=== PATIENT | female | born 1985 | race Caucasian/White ===

== ENCOUNTER → 2017-09-01 | Outpatient (CLI) | payer OTHER ==
[2017-09-01 09:36] LABS: Bilirubin, Delta 0.3 mg/dL (0.0-0.2); Total Bilirubin 0.3 mg/dL (0.2-1.3); Total Protein 6.9 g/dL (6.3-8.2)
[2017-09-01 09:42] LABS: Valproic Acid (Depakene) 74.7 ug/mL
[2017-09-01 09:52] LABS: T4, Free (Free Thyroxine) 0.81 ng/dL (0.78-2.19)
[2017-09-01 15:54] LABS: Hemoglobin A1C 5.7 % (4.0-6.0)
[2017-09-01 17:41] LABS: Urine Alcohol Negative (Negative); Urine Barbiturate Negative (Negative); Urine Cocaine Negative (Negative); Urine Methadone Negative (Negative); Urine Opiates Negative (Negative); Urine Phencyclidine Negative (Negative)
== END | disposition home or self-care (01) ==
LOC: LABWHC1 08:33
PROVIDERS: ATTEND Psychiatry & Neurology Psychiatry
DX: Z51.81 Encounter for therapeutic drug level monitoring (principal); Z79.899 Other long term (current) drug therapy
CPT/HCPCS: 36415; 80061; 80076; 80164; 80306; 82947; 83036; 84439; 84443

== ENCOUNTER 2018-09-24 07:30 | Emergency (ER) | payer OTHER ==
[2018-09-24 07:39] VITALS: BP 124/82; PULSE 85; RESP 18; TEMP 98.2
[2018-09-24] MEDS ORDERED: BUPIVACAINE (PF) 0.5% 30 ML VIAL SQ STA (07:46)
[2018-09-24] MEDS ORDERED: BUPIVACAINE (PF) 0.75% 10 ML VIAL SQ STA (07:50)
[2018-09-24] MEDS ORDERED: ACET/COD 300 MG/30 MG STARTER PACK 6 TAB BTL PO STA (07:51)
[2018-09-24] MEDS ORDERED: IBUPROFEN 600 MG STARTER PACK 4 TAB BTL PO STA (07:51)
--- NOTE | 2018-09-24 07:53 | ED ---
ENT HPI - General Chief complaint: Dental/Oral Stated complaint: Dental pain/jaw swelling Time Seen by Provider: 09/24/18 07:39 Source: patient, RN notes reviewed, old records reviewed Mode of arrival: ambulatory Limitations: no limitations - History of Present Illness Initial comments: Patient is a 32-year-old female presents today with complaints of left lower dental pain and swelling. Patient states that she has an abscess over the front molars. Patient states she does not have a dentist at this time. Patient states that she has had no trismus. She denies any foul taste. Patient states that she has swelling over her gum. Patienthas pain and fractured tooth #20. Patient denies any recent fever, chills, shortness of breath, chest pain, back pain, abdominal pain, nausea vomiting, numbness or tingling, dysuria or hematuria, constipation or diarrhea, headaches or visual changes, or any other current symptoms - Related Data Previous Rx's Medication Instructions Recorded Clindamycin [Cleocin] 450 mg PO TID 7 Days capsule 09/24/18 Ibuprofen 600 mg PO TID #20 tablet 09/24/18 Allergies Allergy/AdvReac Type Severity Reaction Status Date / Time No Known Allergies Allergy Verified 09/24/18 07:36 Review of Systems ROS Statement: Those systems with pertinent positive or pertinent negative responses have been documented in the HPI. ROS Other: All systems not noted in ROS Statement are negative. Past Medical History Past Medical History: No Reported History Past Surgical History: Section Past Psychological History: Anxiety, Bipolar, Depression Smoking Status: Current every day smoker Past Alcohol Use History: None Reported Past Drug Use History: None Reported General Exam - General Exam Comments Initial Comments: pleasant 32-year-old female. Alert and oriented 3. No distress. Limitations: no limitations General appearance: alert, in no apparent distress Head exam: Present: atraumatic, normocephalic, normal inspection Eye exam: Present: normal appearance, PERRL, EOMI. Absent: scleral icterus, conjunctival injection, periorbital swelling ENT exam: Present: normal exam, mucous membranes moist. Absent: normal oropharynx (Patient is poor dentition. Fracture tooth #20. Evidence of abscess over the gums around tooth #20.) Neck exam: Present: normal inspection. Absent: tenderness, meningismus, lymphadenopathy Respiratory exam: Present: normal lung sounds bilaterally. Absent: respiratory distress, wheezes, rales, rhonchi, stridor Cardiovascular Exam: Present: regular rate, normal rhythm, normal heart sounds. Absent: systolic murmur, diastolic murmur, rubs, gallop, clicks Neurological exam: Present: alert, oriented X3, CN II-XII intact Psychiatric exam: Present: normal affect, normal mood Skin exam: Present: warm, dry, intact, normal color. Absent: rash Course Vital Signs 09/24/18 07:36 Temperature 98.2 F Pulse Rate 85 Respiratory 18 Rate Blood Pressure 124/82 O2 Sat by Pulse 96 Oximetry Procedures - Nerve Block Local Anesthetic Used: Marcaine 0.5% Amount of anesthesia used: 5 Side: left Intraoral Nerve Block: inferior alveolar Procedure Successful: Yes Complications: none Patient Tolerated Procedure: well, no complications Medical Decision Making - Medical Decision Making Patient is a 32-year-old female presents for shortness today with complaints of fracture to #20 and surrounding abscess. At this time Patient underwent inferior alveolar block with successful procedure. He is able to move 18-gauge needle to drain the abscess. Patient tolerated procedure well. We'll put the Patient on clindamycin for infection and have her follow-up with dental clinic. INSURANCE or return parameters were discussed. Disposition Clinical Impression: Dental abscess Disposition: HOME SELF-CARE Condition: Good Instructions (If sedation given, give patient instructions): Toothache (ED), Dental Abscess (ED) Additional Instructions: [facility] [place] [id number] [place] [address] [phone] (existing clients only) For new clients: [phone] 1st consult: $50 (includes Xrays) Usually 30% less then private dentist for visits after. [employer] Have to pay $50 for Xrays anmd rest is covered. [phone] Complete antibiotic prescription. Make sure the ear eating yogurt or probiotic foods only take this antibiotic. Patient should use Motrin Tylenol for pain. Return to emergency department if any alarming signs or symptoms occur. Prescriptions: Clindamycin [Cleocin] 450 mg PO TID 7 Days capsule Ibuprofen 600 mg PO TID #20 tablet Is patient prescribed a controlled substance at d/c from ED?: No Referrals: Samuel Palacio MD [Primary Care Provider] - 1-2 days Time of Disposition: 07:52
== END 2018-09-24 08:18 | disposition home or self-care (01) ==
LOC: EC 07:30
DX: K04.7 Periapical abscess without sinus (principal); F17.200 Nicotine dependence, unspecified, uncomplicated
CPT/HCPCS: 41800; 99283

== ENCOUNTER 2018-12-24 14:26 | Emergency (ER) | payer OTHER ==
[2018-12-24 14:44] VITALS: RESP 18
--- NOTE | 2018-12-24 14:46 | ED ---
Psych HPI - General Source: patient, family, RN notes reviewed, old records reviewed Mode of arrival: ambulatory - History of Present Illness MD Complaint: suicidal ideation, feels depressed, other (BiPolar) -: unknown Associated Psychiatric Symptoms: depression, delusions History of same: Yes Quality: constant Improves With: none Worsens With: none Associated Symptoms: denies other symptoms Treatments Prior to Arrival: none <Gilmar Gonzalez - Last Filed: 12/24/18 15:18> <Gilmar Wu - Last Filed: 12/24/18 17:38> - General Chief Complaint: Psychiatric Symptoms Stated Complaint: Mental Health Time Seen by Provider: 12/24/18 14:45 - History of Present Illness Initial Comments: This is a 33-year-old female the ER for evaluation. Patient sever from multiple medical issues multiple psychiatric issues. Seizure disorder as well as on multiple medications. Patient has been given some Preble recently by her parents and is been unable to take care of herself, no ADLs not able to eat drops unable to shower, patient is not taking her medications. And is unresponsive to questioning here in the ER history obtained from patient's mom (Gilmar Gonzalez) - Related Data Home Medications Medication Instructions Recorded Confirmed ARIPiprazole [Abilify] 5 mg PO HS 12/24/18 12/24/18 Buprenorphine HCl/Naloxone HCl 1 film SL BID 12/24/18 12/24/18 [Suboxone 8 mg-2 mg Sl Film] Desvenlafaxine [Pristiq ER] 100 mg PO DAILY 12/24/18 12/24/18 Topiramate [Topamax] 50 mg PO BID 12/24/18 12/24/18 traZODone HCL 50 mg PO HS 12/24/18 12/24/18 Allergies Allergy/AdvReac Type Severity Reaction Status Date / Time No Known Allergies Allergy Verified 12/24/18 15:02 Review of Systems ROS Other: All systems not noted in ROS Statement are negative. <Gilmar Gonzalez - Last Filed: 12/24/18 15:18> ROS Other: All systems not noted in ROS Statement are negative. <Gilmar Wu - Last Filed: 12/24/18 17:38> ROS Statement: Those systems with pertinent positive or pertinent negative responses have been documented in the HPI. Past Medical History Past Medical History: Seizure Disorder History of Any Multi-Drug Resistant Organisms: None Reported Past Surgical History: Section Past Psychological History: Anxiety, Bipolar, Depression Smoking Status: Current every day smoker Past Alcohol Use History: None Reported Past Drug Use History: None Reported <Gilmar Gonzalez - Last Filed: 12/24/18 15:18> General Exam Limitations: no limitations General appearance: alert, in no apparent distress Head exam: Present: atraumatic, normocephalic, normal inspection Eye exam: Present: normal appearance, PERRL, EOMI. Absent: scleral icterus, conjunctival injection, periorbital swelling ENT exam: Present: normal exam, mucous membranes moist Neck exam: Present: normal inspection. Absent: tenderness, meningismus, lymphadenopathy Respiratory exam: Present: normal lung sounds bilaterally. Absent: respiratory distress, wheezes, rales, rhonchi, stridor Cardiovascular Exam: Present: regular rate, normal rhythm, normal heart sounds. Absent: systolic murmur, diastolic murmur, rubs, gallop, clicks GI/Abdominal exam: Present: soft, normal bowel sounds. Absent: distended, tenderness, guarding, rebound, rigid Extremities exam: Present: normal inspection, full ROM, normal capillary refill. Absent: tenderness, pedal edema, joint swelling, calf tenderness Back exam: Present: normal inspection Neurological exam: Present: alert, oriented X3, CN II-XII intact Psychiatric exam: Present: normal affect, normal mood Skin exam: Present: warm, dry, intact, normal color. Absent: rash <Gilmar Gonzalez - Last Filed: 12/24/18 15:18> Course <Gilmar Gonzalez - Last Filed: 12/24/18 15:18> Vital Signs 12/24/18 14:41 Temperature 97.0 F L Pulse Rate 80 Respiratory 18 Rate Blood Pressure 122/76 O2 Sat by Pulse 92 L Oximetry - Reevaluation(s) Reevaluation #1: 12/24/18 15:19 Medical record is reviewed (Gilmar Gonzalez) Medical Decision Making - Lab Data Lab Results 12/24/18 Range/Units 14:41 Urine Opiates Screen Not Detected (NotDetected) Ur Oxycodone Screen Not Detected (NotDetected) Urine Methadone Screen Not Detected (NotDetected) Ur Propoxyphene Screen Not Detected (NotDetected) Ur Barbiturates Screen Not Detected (NotDetected) U Tricyclic Antidepress Not Detected (NotDetected) Ur Phencyclidine Scrn Not Detected (NotDetected) Ur Amphetamines Screen Not Detected (NotDetected) U Methamphetamines Scrn Not Detected (NotDetected) U Benzodiazepines Scrn Detected H (NotDetected) Urine Cocaine Screen Detected H (NotDetected) U Marijuana (THC) Screen Not Detected (NotDetected) Disposition <Gilmar Gonzalez - Last Filed: 12/24/18 15:18> Is patient prescribed a controlled substance at d/c from ED?: No Time of Disposition: 17:38 <Gilmar Wu - Last Filed: 12/24/18 17:38> Clinical Impression: Cocaine abuse Disposition: HOME SELF-CARE Condition: Good Instructions (If sedation given, give patient instructions): Cocaine Abuse (ED) Referrals: None,Stated [REFERRING] - 1-2 days
[2018-12-24 16:06] LABS: Amphetamine Screen,Urine Not Detected (NotDetected); Barbiturate Screen,Urine Not Detected (NotDetected); Benzodiazepines Screen,Urine Detected (NotDetected); Cocaine Screen,Urine Detected (NotDetected); Methadone Screen, Urine Not Detected (NotDetected); Opiate Screen,Urine Not Detected (NotDetected); Oxycodone Screen, Urine Not Detected (NotDetected); Phencyclidine Screen,Urine Not Detected (NotDetected); Tricyclic Antidepressant,Urine Not Detected (NotDetected); Urn Cannabinoid Scrn Not Detected (NotDetected)
[2018-12-24 17:54] VITALS: BP 132/60; PULSE 72; TEMP 97.5
== END 2018-12-24 17:30 | disposition home or self-care (01) ==
LOC: EC 14:26
DX: F14.10 Cocaine abuse, uncomplicated (principal); R45.851 Suicidal ideations; G40.909 Epilepsy, unspecified, not intractable, without status epilepticus; F31.9 Bipolar disorder, unspecified; F41.9 Anxiety disorder, unspecified; F17.200 Nicotine dependence, unspecified, uncomplicated; Z79.899 Other long term (current) drug therapy
CPT/HCPCS: 80306; 82075; 99285

== ENCOUNTER 2019-04-27 11:02 | Inpatient (IN) | payer MEDICAID, OTHER ==
--- NOTE | 2019-04-27 11:43 | ED ---
Psych HPI - General Chief Complaint: Psychiatric Symptoms Stated Complaint: EPS eval Time Seen by Provider: 04/27/19 11:15 Source: patient, RN notes reviewed Mode of arrival: ambulatory Limitations: no limitations - History of Present Illness Initial Comments: 33-year-old female presented to emergency department for significant evaluation. Patient states she is depressed, suicidal. Patient states she relapsed on drug use. She uses crack cocaine. Denies any self-harm. Patient has a history of psychiatric disorders patient states she was sober for 90 days. - Related Data Home Medications Medication Instructions Recorded Confirmed ARIPiprazole [Abilify] 5 mg PO HS 12/24/18 04/27/19 Buprenorphine HCl/Naloxone HCl 1 film SUBLINGUAL BID 12/24/18 04/27/19 [Suboxone 8 mg-2 mg Sl Film] Desvenlafaxine [Pristiq ER] 100 mg PO DAILY 12/24/18 04/27/19 Topiramate [Topamax] 50 mg PO BID 12/24/18 04/27/19 traZODone HCL 50 mg PO HS 12/24/18 04/27/19 Allergies Allergy/AdvReac Type Severity Reaction Status Date / Time No Known Allergies Allergy Verified 04/27/19 11:53 Review of Systems ROS Statement: Those systems with pertinent positive or pertinent negative responses have been documented in the HPI. ROS Other: All systems not noted in ROS Statement are negative. Past Medical History Past Medical History: Seizure Disorder History of Any Multi-Drug Resistant Organisms: None Reported Past Surgical History: Section Past Psychological History: Anxiety, Bipolar, Depression Smoking Status: Current every day smoker Past Alcohol Use History: None Reported Past Drug Use History: None Reported General Exam Limitations: no limitations General appearance: alert, in no apparent distress Head exam: Present: atraumatic, normocephalic, normal inspection Eye exam: Present: normal appearance, PERRL, EOMI. Absent: scleral icterus, conjunctival injection, periorbital swelling ENT exam: Present: normal exam, normal oropharynx, mucous membranes moist Neck exam: Present: normal inspection, full ROM. Absent: tenderness, meningismus, lymphadenopathy Respiratory exam: Present: normal lung sounds bilaterally. Absent: respiratory distress, wheezes, rales, rhonchi, stridor Cardiovascular Exam: Present: regular rate, normal rhythm, normal heart sounds. Absent: systolic murmur, diastolic murmur, rubs, gallop, clicks GI/Abdominal exam: Present: soft, normal bowel sounds. Absent: distended, tenderness, guarding, rebound, rigid Neurological exam: Present: alert, oriented X3, CN II-XII intact Psychiatric exam: Present: depressed Course Vital Signs 04/27/19 11:11 Temperature 97.5 F L Pulse Rate 83 Respiratory 16 Rate Blood Pressure 136/89 O2 Sat by Pulse 97 Oximetry Medical Decision Making - Medical Decision Making Patient will be admitted for psychiatric treatment - Lab Data Lab Results 04/27/19 Range/Units 11:35 Urine Opiates Screen Not Detected (NotDetected) Ur Oxycodone Screen Not Detected (NotDetected) Urine Methadone Screen Not Detected (NotDetected) Ur Propoxyphene Screen Not Detected (NotDetected) Ur Barbiturates Screen Not Detected (NotDetected) U Tricyclic Antidepress Not Detected (NotDetected) Ur Phencyclidine Scrn Not Detected (NotDetected) Ur Amphetamines Screen Not Detected (NotDetected) U Methamphetamines Scrn Not Detected (NotDetected) U Benzodiazepines Scrn Not Detected (NotDetected) Urine Cocaine Screen Detected H (NotDetected) U Marijuana (THC) Screen Not Detected (NotDetected) Disposition Clinical Impression: Depression, Suicidal ideation Disposition: TRANSFER TO PSYCH HOSP/UNIT Condition: Stable Referrals: [facility] [Primary Care Provider] - 1-2 days
[2019-04-27 12:11] LABS: Amphetamine Screen,Urine Not Detected (NotDetected); Barbiturate Screen,Urine Not Detected (NotDetected); Benzodiazepines Screen,Urine Not Detected (NotDetected); Cocaine Screen,Urine Detected (NotDetected); Methadone Screen, Urine Not Detected (NotDetected); Opiate Screen,Urine Not Detected (NotDetected); Oxycodone Screen, Urine Not Detected (NotDetected); Phencyclidine Screen,Urine Not Detected (NotDetected); Tricyclic Antidepressant,Urine Not Detected (NotDetected); Urn Cannabinoid Scrn Not Detected (NotDetected)
[2019-04-27] MEDS ORDERED: ZIPRASIDONE 20 MG VIAL IM PRN (13:58)
[2019-04-27] MEDS ORDERED: MAG HYDROX/AL HYDROX/SIMETH 30 ML CUP PO PRN (13:58)
[2019-04-27] MEDS ORDERED: LORazepam 1 MG TAB PO PRN (13:58)
[2019-04-27] MEDS ORDERED: MAGNESIUM HYDROXIDE 2,400 MG/10 ML CUP PO PRN (13:58)
[2019-04-27] MEDS ORDERED: ACETAMINOPHEN TAB 325 MG TAB PO PRN (13:58)
[2019-04-27 14:51] VITALS: BMI 39.9
[2019-04-27] MEDS: NICOTINE 14MG/24HR PATCH TRANSDERM SCH (15:18)
[2019-04-27] MEDS: ARIPiprazole 5 MG TAB PO SCH (20:18)
[2019-04-27] MEDS: traZODone HCL 50 MG TAB PO SCH (20:18)
[2019-04-27] MEDS: SUBOXONE PO SCH (20:18)
[2019-04-27] MEDS: TOPIRAMATE 25 MG TAB PO SCH (20:18)
[2019-04-28] MEDS: DESVENLAFAXINE SUCCINATE 50 MG TAB.ER.24H PO SCH (07:58)
[2019-04-28] MEDS: NICOTINE 14MG/24HR PATCH TRANSDERM SCH (07:58)
[2019-04-28] MEDS: SUBOXONE PO SCH (07:58)
[2019-04-28] MEDS: TOPIRAMATE 25 MG TAB PO SCH ×2 (07:59→20:21)
[2019-04-28 08:15] LABS: Basophils % (A) 0 %; Eosinophils # (A) 0.2 k/uL (0-0.7); Eosinophils % (A) 3 %; HCT 43.4 % (34.0-46.0); HGB 14.9 gm/dL (11.4-16.0); Lymphocytes # (A) 2.7 k/uL (1.0-4.8); Lymphocytes % (A) 34 %; MCH 29.7 pg (25.0-35.0); MCHC 34.3 g/dL (31.0-37.0); MCV 86.4 fL (80.0-100.0); Monocytes # (A) 0.4 k/uL (0-1.0); Monocytes % (A) 5 %; Neutrophils # (A) 4.5 k/uL (1.3-7.7); Neutrophils % (A) 56 %; Platelet Count 260 k/uL (150-450); RBC 5.02 m/uL (3.80-5.40); RDW 12.3 % (11.5-15.5); WBC 8.1 k/uL (3.8-10.6)
[2019-04-28 08:46] LABS: ALT 30 U/L (9-52); AST 20 U/L (14-36); African American GFR (CKD) >90 (>60 ml/min/1.73 sqM); Alkaline Phosphatase 84 U/L (38-126); Anion Gap 9 mmol/L; Blood Urea Nitrogen 12 mg/dL (7-17); Calcium 9.2 mg/dL (8.4-10.2); Carbon Dioxide 24 mmol/L (22-30); Chloride 106 mmol/L (98-107); Cholesterol 139 mg/dL (<200); Glucose 95 mg/dL (74-99); HDL Cholesterol 43 mg/dL (40-60); LDL Cholesterol,Calculated 70 mg/dL (0-99); Potassium 4.9 mmol/L (3.5-5.1); Sodium 139 mmol/L (137-145); Total Bilirubin 0.5 mg/dL (0.2-1.3); Triglycerides 132 mg/dL (<150)
[2019-04-28] MEDS ORDERED: NICOTINE 14MG/24HR PATCH TRANSDERM SCH (09:00)
--- NOTE | 2019-04-28 14:24 | P.HP ---
Psychiatric H&P - . History & Physical: Allergies Allergy/AdvReac Type Severity Reaction Status Date / Time No Known Allergies Allergy Verified 04/27/19 14:51 Vital Signs Temp 97.8 F 04/28/19 06:42 Pulse 87 04/28/19 08:01 Resp 18 04/28/19 08:01 BP 105/70 04/28/19 08:01 Pulse Ox 97 04/27/19 11:11 Intake & Output 04/27/19 04/28/19 04/28/19 18:59 06:59 18:59 Weight 124.738 kg Laboratory Last Values WBC 8.1 k/uL (3.8-10.6) 04/28/19 07:32 RBC 5.02 m/uL (3.80-5.40) 04/28/19 07:32 Hgb 14.9 gm/dL (11.4-16.0) 04/28/19 07:32 Hct 43.4 % (34.0-46.0) 04/28/19 07:32 MCV 86.4 fL (80.0-100.0) 04/28/19 07:32 MCH 29.7 pg (25.0-35.0) 04/28/19 07:32 MCHC 34.3 g/dL (31.0-37.0) 04/28/19 07:32 RDW 12.3 % (11.5-15.5) 04/28/19 07:32 Plt Count 260 k/uL (150-450) 04/28/19 07:32 Neutrophils % 56 % 04/28/19 07:32 Lymphocytes % 34 % 04/28/19 07:32 Monocytes % 5 % 04/28/19 07:32 Eosinophils % 3 % 04/28/19 07:32 Basophils % 0 % 04/28/19 07:32 Neutrophils # 4.5 k/uL (1.3-7.7) 04/28/19 07:32 Lymphocytes # 2.7 k/uL (1.0-4.8) 04/28/19 07:32 Monocytes # 0.4 k/uL (0-1.0) 04/28/19 07:32 Eosinophils # 0.2 k/uL (0-0.7) 04/28/19 07:32 Basophils # 0.0 k/uL (0-0.2) 04/28/19 07:32 Sodium 139 mmol/L (137-145) 04/28/19 07:32 Potassium 4.9 mmol/L (3.5-5.1) 04/28/19 07:32 Chloride 106 mmol/L (98-107) 04/28/19 07:32 Carbon Dioxide 24 mmol/L (22-30) 04/28/19 07:32 Anion Gap 9 mmol/L 04/28/19 07:32 BUN 12 mg/dL (7-17) 04/28/19 07:32 Creatinine 0.80 mg/dL (0.52-1.04) 04/28/19 07:32 Est GFR (CKD-EPI)AfAm >90 (>60 ml/min/1.73 sqM) 04/28/19 07:32 Est GFR (CKD-EPI)NonAf >90 (>60 ml/min/1.73 sqM) 04/28/19 07:32 Glucose 95 mg/dL (74-99) 04/28/19 07:32 Calcium 9.2 mg/dL (8.4-10.2) 04/28/19 07:32 Total Bilirubin 0.5 mg/dL (0.2-1.3) 04/28/19 07:32 AST 20 U/L (14-36) 04/28/19 07:32 ALT 30 U/L (9-52) 04/28/19 07:32 Alkaline Phosphatase 84 U/L (38-126) 04/28/19 07:32 Total Protein 7.0 g/dL (6.3-8.2) 04/28/19 07:32 Albumin 4.0 g/dL (3.5-5.0) 04/28/19 07:32 Triglycerides 132 mg/dL (<150) 04/28/19 07:32 Cholesterol 139 mg/dL (<200) 04/28/19 07:32 LDL Cholesterol, Calc 70 mg/dL (0-99) 04/28/19 07:32 HDL Cholesterol 43 mg/dL (40-60) 04/28/19 07:32 TSH 2.020 mIU/L (0.465-4.680) 04/28/19 07:32 Urine Opiates Screen Not Detected (NotDetected) 04/27/19 11:35 Ur Oxycodone Screen Not Detected (NotDetected) 04/27/19 11:35 Urine Methadone Screen Not Detected (NotDetected) 04/27/19 11:35 Ur Propoxyphene Screen Not Detected (NotDetected) 04/27/19 11:35 Ur Barbiturates Screen Not Detected (NotDetected) 04/27/19 11:35 U Tricyclic Antidepress Not Detected (NotDetected) 04/27/19 11:35 Ur Phencyclidine Scrn Not Detected (NotDetected) 04/27/19 11:35 Ur Amphetamines Screen Not Detected (NotDetected) 04/27/19 11:35 U Methamphetamines Scrn Not Detected (NotDetected) 04/27/19 11:35 U Benzodiazepines Scrn Not Detected (NotDetected) 04/27/19 11:35 Urine Cocaine Screen Detected (NotDetected) H 04/27/19 11:35 U Marijuana (THC) Screen Not Detected (NotDetected) 04/27/19 11:35 04/28/19 14:16 IDENTIFYING DATA: This patient is a 33-year-old female who was admitted to the mental health unit for suicidal ideation. HPI: Patient presented to the emergency room stating she felt unsafe and if she was discharged home she would kill herself. She has a history of cocaine use disorder and was clean 91 days. Last week she relapsed 3 times. She subsequently had a verbal altercation with her mother which led to the patient feeling overwhelmed and having suicidal thoughts. She reports that her sleep had been impaired energy was low. Appetite is reportedly stable. She is endorsing no hopeless feelings at this time. She states that to her mother and in the emergency room she said she was suicidal out of anger but she really does not want to . She had been off of her psychotropic medications for 2 weeks. She states they are effective however and wants to restart time. She is endorsing no significant anxiety symptoms at this time. She states she has a bipolar disorder but does not describe hypomanic or manic episodes. She states she will have times that will last a few hours where she has some racing though ts. She reports no thoughts of wanting to harm others. She endorses no delusional thinking. PAST PSYCHIATRIC HISTORY: No prior admissions to this mental health unit no history of suicide attempts. She works with [facility] and specifically sees Dr. Philip and a therapist. She states that she saw him recently. She is prescribed Abilify 5 mg daily Pristiq 100 mg daily trazodone 50 mg at bedtime. She is also given Suboxone by another physician for pain management and opioid use disorder. PMH: Reported chronic pain ALLERGIES: NO KNOWN DRUG ALLERGIES MEDICATIONS: As above CHEMICAL DEPENDENCY HISTORY: She reports no use of alcohol no use of marijuana. She does have a history of opioid use disorder when she was abusing Vicodin. She has a history of abusing crack cocaine. She was clean for 91 days from cocaine use. That followed her discharge from [facility] where she attended inpatient chemical dependency treatment. FAMILY PSYCHIATRIC HISTORY: Nonspecifically she states several family members have depression and anxiety, no suicides in the family. FAMILY CHEMICAL DEPENDENCY HISTORY: Nonspecifically she states several family members deal with substance use SOCIAL HISTORY: The patient is 33 years old she's for the last 5 years she characterizes the marriage is good. She is currently residing with her parents as her and her are looking for another residence. She has 2 children a 19-year-old son and a 13-year-old daughter. The patient is not employed she has an 11th grade education no history of service. She has 2 younger brothers. She endorses no history of arrests. She endorses no history of abuse. MENTAL STATUS EXAM: tHe patient is an overweight female appearing her stated age. She is dressed in her own clothing. She wears eyeglasses. She is a mildly disheveled appearance hygiene is adequate. Speech is fluent spontaneous nonpressured. She indicates her mood is better today and she feels more hopeful that she is in a safe place and is restarting her medication. She is reporting no acute suicidal ideation intent or plan today she is endorsing no homicidal ideation intent or plan. She endorses no auditory or visual hallucinations or any specific delusions. There is no observed evidence of psychosis. She demonstrates no tangential thinking loose associations or flight of ideas. She does not appear hypomanic or manic. In terms of thought process she seems concrete in nature. Insight and judgment limited. She is oriented to person place and date. She is able to name the days of the week backwards. She demonstrates no abnormal involuntary movements. She demonstrates no verbal or physical aggressiveness. STRENGTHS/WEAKNESSES: Strengths: Housing, support from family weaknesses: Substance use noncompliance with psychotropic medication INTELLECTUAL FUNCTIONING: Below average to average IMPRESSIONS: [] 1. Major depressive disorder recurrent severe without psychosis, rule out bipolar depression, cocaine use disorder, opioid use disorder PLAN: The patient has been admitted to the mental health unit voluntarily. We reviewed her presenting symptoms and treatment options. She will continue on the Abilify 5 mg daily Pristiq 100 mg daily trazodone 50 mg at bedtime. We have verified the Suboxone and she may continue that 8 mg once a day. She has been seen by internal medicine for routine history and physical exam. Social work will meet with her to complete a psychosocial assessment and begin discharge planning. She is encouraged to fully participate in the milieu. We will [place] her for safety. We will involve family in treatment and discharge planning as she will allow.
[2019-04-28 17:33] LABS: Hemoglobin A1C 5.1 % (4.0-6.0)
--- NOTE | 2019-04-28 20:09 | P.HPMEDMHU ---
History of Present Illness H&P Date: 04/28/19 Chief Complaint: depression Patient is a 33-year-old female past medical history of seizure disorder, mild intermittent asthma, tobacco abuse who presented to the emergency department for depression with suicidal ideation. Patient has been sober for 91 days from cocaine and had a lapse which led her to feeling depressed. Patient seen and examined. She denies any recent cough, cold, fever, flu, nausea, vomiting, or diarrhea. She's been her normal state of health and had been feeling exceptionally well until she relapsed and used cocaine. She feels as though she is doing well. She is asking for her Suboxone to be changed to once a day as she typically takes it once at lunch and not twice a day. Review of Systems Pertinent positives and negatives as discussed in HPI, a complete review of systems was performed and all other systems are negative. Past Medical History Past Medical History: Asthma, Seizure Disorder Additional Past Medical History / Comment(s): last seizure two years ago. History of Any Multi-Drug Resistant Organisms: None Reported Past Surgical History: Section Past Anesthesia/Blood Transfusion Reactions: No Reported Reaction Past Psychological History: Anxiety, Bipolar, Depression Smoking Status: Current every day smoker Past Alcohol Use History: None Reported Past Drug Use History: Cocaine - Past Family History Father Family Medical History: No Reported History Mother Family Medical History: No Reported History Medications and Allergies Home Medications Medication Instructions Recorded Confirmed Type ARIPiprazole [Abilify] 5 mg PO HS 12/24/18 04/27/19 History Buprenorphine HCl/Naloxone HCl 1 film SUBLINGUAL BID 12/24/18 04/27/19 History [Suboxone 8 mg-2 mg Sl Film] Desvenlafaxine [Pristiq ER] 100 mg PO DAILY 12/24/18 04/27/19 History Topiramate [Topamax] 50 mg PO BID 12/24/18 04/27/19 History traZODone HCL 50 mg PO HS 12/24/18 04/27/19 History Allergies Allergy/AdvReac Type Severity Reaction Status Date / Time No Known Allergies Allergy Verified 04/27/19 14:51 Physical Exam Osteopathic Statement: *. No significant issues noted on an osteopathic structural exam other than those noted in the History and Physical/Consult. Vitals: Vital Signs Temp Pulse Resp BP 04/28/19 08:01 87 18 105/70 04/28/19 06:42 97.8 F 66 16 103/74 General: non toxic, no distress, appears at stated age, normal weight Derm: no unusual rashes/lesions no unusual ecchymoses, warm, dry Head: atraumatic, normocephalic, symmetric Eyes: EOMI, no lid lag, anicteric sclera, pupils equal round reactive to light ENT: Nose and ears atraumatic, no thrush, no pharyngeal erythema Neck: No thyromegaly, no cervical lymphadenopathy, trachea midline, supple Mouth: no lip lesion, mucus membranes moist Cardiovascular: S1S2 reg, no murmur, positive posterior tibial pulse bilateral, no edema, capillary refill less than 2 seconds Lungs: CTA bilateral, no rhonchi, no rales , no accessory muscle use Abdominal: soft, nontender to palpation, no guarding, no appreciable organo megaly, normal bowel sounds Ext: no gross muscle atrophy, muscle strength 5 out of 5 in all 4 extremities grossly, no contractures, Neuro: CN II-XI grossly intact, light touch intact all 4 extremities, finger to nose within normal limits, Psych: Alert, oriented, appropriate affect Cranial Nerve Examination - Cranial Nerves Cranial Nerve II- Optic: Intact Cranial Nerve III- Oculomotor: Intact Cranial Nerve IV- Trochlear: Intact Cranial Nerve V- Trigeminal: Intact Cranial Nerve - Abducens: Intact Cranial Nerve VII- Facial: Intact Cranial Nerve VIII- Auditory: Intact Cranial Nerve IX- Glossopharyngeal: Intact Cranial Nerve X- Vagus: Intact Cranial Nerve XI- Accessory: Intact Cranial Nerve XII- Hypoglossal: Intact Results CBC & Chem 7: 04/28/19 07:32 04/28/19 07:32 Thrombosis Risk Factor Assmnt - DVT/VTE Prophylaxis DVT/VTE Prophylaxis: Low risk, early ambulation encouraged - Choose All That Apply Any of the Below Risk Factors Present?: No Other Risk Factors: No Other congenital or acquired thrombophilia - If yes, enter type in comment: No Thrombosis Risk Factor Assessment Level: Very Low Risk Assessment and Plan Assessment: Mild intermittent asthma -As needed albuterol Tobacco abuse -Cessation -Nicotine replacement Seizure disorder -Well controlled -Continue with Topamax Illicit substance abuse -Encouraged patient to continue off cocaine -Reinforcement of good checked on the 21 days sober Depression -Your psych management Thank you for allowing us to participate in the care of this patient. We will follow peripherally. Do not hesitate to contact us with questions. Someone can be reached from the [facility] hospitalist group at all hours of the day at [phone].
[2019-04-28] MEDS: ARIPiprazole 5 MG TAB PO SCH (20:21)
[2019-04-28] MEDS: traZODone HCL 50 MG TAB PO SCH (20:21)
[2019-04-28] MEDS: ALBUTEROL NEBULIZED 2.5 MG/3 ML INHALATION PRN (21:50)
[2019-04-29] MEDS ORDERED: predniSONE 20 MG TAB PO STA (00:19)
[2019-04-29] MEDS: TOPIRAMATE 25 MG TAB PO SCH ×2 (07:45→19:52)
[2019-04-29] MEDS: DESVENLAFAXINE SUCCINATE 50 MG TAB.ER.24H PO SCH (07:45)
[2019-04-29] MEDS: NICOTINE 21MG/24HR PATCH TRANSDERM SCH (07:45)
--- NOTE | 2019-04-29 12:25 | P.PN ---
Progress Note - Text Interval history: The patient is found in the hallway she follows me to an interview room. She indicates her mood is much improved. She states that her daughter and mother both visited last evening and that was supportive. She has a goal of attending 90 NA meetings in 90 days upon discharge. She says she initially felt fairly tired after restarting her medicines but today is feeling more alert. She has been attending groups. Appetite stable she reportedly slept approximately 5-6 hours last night. She has no questions or concerns regarding her medications. Mental status exam: The patient is alert she's dresser own clothing hygiene grooming are good. She is wearing makeup she is wearing her eyeglasses. Speech is fluent spontaneous nonpressured. She denies having any hopelessness thinking at this time she denies having any suicidal ideation intent or plan. She is reporting no homicidal ideation intent or plan. She endorses no auditory or visual hallucinations or any specific delusions. She endorses no racing thoughts she demonstrates no tangential thinking loose associations or flight of ideas. She does not appear hypomanic or manic there is no observed evidence of psychosis. Insight and judgment improving. She spontaneously describes future oriented thinking. Plan: The patient will continue on her current psychotropic medication. We will monitor her for safety area and she is encouraged to participate in the milieu. It appears that she is already starting to clinically stabilized. Vital signs darryn eric.
[2019-04-29] MEDS: ALBUTEROL NEBULIZED 2.5 MG/3 ML INHALATION PRN (18:58)
[2019-04-29] MEDS ORDERED: hydrOXYzine PAMOATE 25 MG CAP PO STA (19:33)
[2019-04-29] MEDS: traZODone HCL 50 MG TAB PO SCH (19:52)
[2019-04-29] MEDS: ARIPiprazole 5 MG TAB PO SCH (19:52)
[2019-04-30] MEDS: NICOTINE 21MG/24HR PATCH TRANSDERM SCH (08:26)
[2019-04-30] MEDS: TOPIRAMATE 25 MG TAB PO SCH ×2 (08:26→21:23)
[2019-04-30] MEDS: DESVENLAFAXINE SUCCINATE 50 MG TAB.ER.24H PO SCH (08:26)
--- NOTE | 2019-04-30 12:26 | P.PN ---
Progress Note - Text Progress Note Date: 04/30/19 Interval History: Patient was seen earlier today undergoing hallways and was agreeable to seek to functional tester typewriters. Patient states that she was here in the hospital was brought in by her mother as there was concerns for suicide this patient relapsed back on cocaine. She states that "I messed up" and broke her sobriety and states that she does have a sponsor who is also a life support technician that we'll be able to help her when she leaves the hospital. She also stated that she has been off her medications for 2 weeks and has been declining since then in terms of her depressive symptoms. She does claim that since being on the medications that she is improving mildly. Patient states that she is sleeping throughout the night and has a fair appetite. She did not offer any other complaints at this time. At this time patient denies any suicidal or homical ideations, intent or plan. Patient denies any auditory, visual hallucinations and denies any paranoia or delusions. Patient denies any side effects from the medications and has been compliant with meds. Mental Status Exam: General Appearance: Patient appears to be stated age is alert, directable, and cooperative. Fair hygiene and grooming. Fair eye contact. Behavior: Patient is calmly seated without any agitated behavior. Speech: Patient's speech is fluent and nonpressured. Mood/Affect: Mood is improving, affect is congruent and constricted. Suicidality/Homicidality: Patient denies having any suicidal or homicidal ideation intent or plan. Perceptions: Patient denies any auditory or visual hallucinations. Though content/process: There is no evidence of any delusional thought content and thought process is linear and goal-directed. Memory and concentration: AOX3, grossly intact for the purposes of this session Judgment and insight: Poor, improving mildly. Assessment Major depressive disorder recurrent severe without psychosis R/o bipolar depression cocaine use disorder opioid use disorder Plan: -Patient continues to meet criteria for inpatient psychiatric admission for symptom stabilization and safety. Patient has signed adult voluntary form and medication consent and was placed in patient's chart. -Medications: Patient would like to continue on the same doses of her medications including Pristiq 100 mg daily for depression, trazodone 50 mg daily at bedtime for insomnia and mood. Continue with Abilify 5 mg daily for mood stabilization. -Patient is on her home dose of Suboxone 8 mg daily at 12 PM -NRT - nicotine patch -SW on board for discharge planning. Likely discharge back home in 2-3 days. We will offer substance abuse rehab
[2019-04-30] MEDS: ALBUTEROL NEBULIZED 2.5 MG/3 ML INHALATION PRN (21:16)
[2019-04-30] MEDS: traZODone HCL 50 MG TAB PO SCH (21:23)
[2019-04-30] MEDS: ARIPiprazole 5 MG TAB PO SCH (21:23)
[2019-05-01] MEDS: DESVENLAFAXINE SUCCINATE 50 MG TAB.ER.24H PO SCH (08:27)
[2019-05-01] MEDS: TOPIRAMATE 25 MG TAB PO SCH ×2 (08:27→20:52)
[2019-05-01] MEDS: NICOTINE 21MG/24HR PATCH TRANSDERM SCH (08:27)
--- NOTE | 2019-05-01 11:40 | P.PN ---
Progress Note - Text Progress Note Date: 05/01/19 Interval History: Patient was seen today lying in her bed and was agreeable to seek to copywriter. Patient stated that she was taking in the she is feeling bored on the unit. Patient claims that her mood and anxiety have been gradually improving. She states that she is glad to be back on her medications. She denied any overnight complaints and feels that she may be ready to be discharged soon. Patient states that she is sleeping throughout the night and has a fair appetite. Patient reported not going to most of the groups however was encouraged to do so to work on her coping skills and distress tolerance. At this time patient denies any suicidal or homical ideations, intent or plan. Patient denies any auditory, visual hallucinations and denies any paranoia or delusions. Patient denies any side effects from the medications and has been compliant with meds. Mental Status Exam: General Appearance: Patient appears to be stated age is alert, directable, and cooperative. Fair hygiene and grooming. Fair eye contact. Behavior: Patient is calmly seated without any agitated behavior. Speech: Patient's speech is fluent and nonpressured. Soft tone Mood/Affect: Mood is improving, affect is congruent and constricted. Suicidality/Homicidality: Patient denies having any suicidal or homicidal ideation intent or plan. Perceptions: Patient denies any auditory or visual hallucinations. Though content/process: There is no evidence of any delusional thought content and thought process is linear and goal-directed. Memory and concentration: AOX3, grossly intact for the purposes of this session Judgment and insight: Fair, improving mildly. Assessment Major depressive disorder recurrent severe without psychosis R/o bipolar depression cocaine use disorder opioid use disorder Plan: -Patient continues to meet criteria for inpatient psychiatric admission for symptom stabilization and safety. Patient has signed adult voluntary form and medication consent and was placed in patient's chart. -Medications: Patient would like to continue on the same doses of her medications including Pristiq 100 mg daily for depression, trazodone 50 mg daily at bedtime for insomnia and mood. Continue with Abilify 5 mg daily for mood stabilization. -Patient is on her home dose of Suboxone 8 mg daily at 12 PM -NRT - nicotine patch -SW on board for discharge planning. Likely discharge back home tomorrow. Patient is continuing to decline substance use rehab and would like to do outpatient meetings and counseling with [facility] and patient claims that showered he has a sponsor in the community which she is planning on contacting.
[2019-05-01] MEDS: ARIPiprazole 5 MG TAB PO SCH (20:52)
[2019-05-01] MEDS: traZODone HCL 50 MG TAB PO SCH (20:52)
[2019-05-02 06:45] VITALS: BP 132/66; PULSE 70; RESP 20; TEMP 97.8
[2019-05-02] MEDS: NICOTINE 21MG/24HR PATCH TRANSDERM SCH (08:42)
[2019-05-02] MEDS: TOPIRAMATE 25 MG TAB PO SCH (08:42)
[2019-05-02] MEDS: DESVENLAFAXINE SUCCINATE 50 MG TAB.ER.24H PO SCH (08:42)
--- NOTE | 2019-05-02 09:58 | P.DS ---
Providers Date of admission: 04/27/19 13:55 Expected date of discharge: 05/02/19 Attending physician: Iván Gant MD Consults: 04/27/19 13:58 Consult Physician Routine Consulting Provider: [facility] Consult Reason/Comments: medical management Do you want consulting provider notified?: Yes Primary care physician: [facility] Diagnosis(es) (1) Major depressive disorder, recurrent severe without psychotic features Current Visit: Yes Status: Acute Priority: High (2) Cocaine use disorder Current Visit: Yes Status: Acute Priority: Medium (3) Opioid use disorder, mild, in early remission, on maintenance therapy Current Visit: Yes Status: Acute Priority: Medium (4) Nicotine dependence Current Visit: Yes Status: Acute Priority: Low Hospital Course: Admission HPI: The patient is a 33-year-old female who was admitted to the mental health unit for suicidal ideation. Patient presented to the emergency room stating she felt unsafe and if she was discharged home she would kill herself. She has a history of cocaine use disorder and was clean 91 days. Last week she relapsed 3 times. She subsequently had a verbal altercation with her mother which led to the patient feeling overwhelmed and having suicidal thoughts. She reports that her sleep had been impaired energy was low. Appetite is reportedly stable. She is endorsing no hopeless feelings at this time. She states that to her mother and in the emergency room she said she was suicidal out of anger but she really does not want to . She had been off of her psychotropic medications for 2 weeks. She states they are effective however and wants to restart time. She is endorsing no significant anxiety symptoms at this time. She states she has a bipolar disorder but does not describe hypomanic or manic episodes. She states she will have times that will last a few hours where she has some racing thoughts. She reports no thoughts of wanting to harm others. She endorses no delusional thinking. Patient has no prior admissions to this mental health unit no history of suicide attempts. She works with [employer] and specifically sees Dr. Philip and a therapist. She states that she saw him recently. She is prescribed Abilify 5 mg daily Pristiq 100 mg daily trazodone 50 mg at bedtime. She is also given Suboxone by another physician for pain management and opioid use disorder. Hospital course: Upon admission to the unit patient was initially depressed, having suicidal thoughts and isolative. Patient was however directable and agreeable to commence treatment. Patient got along well with other patients on the unit and followed unit protocol. Patient was compliant with the medications and denied any side effects throughout hospital course. Patient was started on her home doses of Pristiq 100 mg daily for depression, trazodone 50 mg nightly for insomnia and mood, Abilify 5 mg daily for mood adjunct. Patient was also restarted on her home dose of Suboxone 8 mg daily at 12 PM for opiate use disorder and pain. Patient spoke of her stressors and engaged in therapy both group and individual. Patient was also seen by medical team for history and physical exam. Throughout the course of the hospitalization patient gradually improved with regards to mood, sleep and became future oriented with improved insight and ju dgment. On the day of discharge patient denied any suicidal or homicidal ideations intent or plan denied any auditory or visual hallucinations. Patient endorsed wanting to live for her health and her children. Patient denied any paranoia and did not endorse any delusions. Patient does have a significant history of substance abuse and was counseled on abstaining from all substances including alcohol and marijuana. Patient is going to continue on her home dose of opiate replacement maintenance therapy, Suboxone. Patient was offered inpatient rehab for substance use however patient declined at this time and preferred to do outpatient therapy, call her sponsor and also do AA/NA meetings in the community. Patient was also counseled on the medications and need for regular compliance and was encouraged to follow-up with their outpatient appointment for mental health and also for primary care. Prior to discharge a family meeting will be arranged by social worker delinquency prevention to answer any questions and ensure safety upon discharge. Mental status exam: General Appearance: Patient appears to be stated age is alert, pleasant, and cooperative. Patient is in no acute distress and has fair hygiene and grooming Behavior: Patient is calmly seated without any agitated behavior. Speech: Patient's speech is fluent and nonpressured. Mood/Affect: Patient reports their mood is "at her", affect is congruent and euthymic. Suicidality/Homicidality: Patient denies having any suicidal or homicidal ideation intent or plan. Perceptions: Patient denies any auditory or visual hallucinations. Though content/process: There is no evidence of any delusional thought content and thought process is linear and goal-directed. Memory and concentration: AOX3, grossly intact for the purposes of this session. Can spell "WORLD" backwards correctly. Judgment and insight: fair, improved Impression: Major depressive disorder, recurrent, severe without psychosis Cocaine use disorder Opiate use disorder in early remission, currently on maintenance therapy Nicotine dependence Plan: -Continue with discharge today as patient has improved and stabilized psychiatrically and is not currently an imminent threat to herself and/or others. -Continue medications: Pristiq 100 mg daily for mood, trazodone 50 mg nightly for insomnia and mood, Abilify 5 mg daily as mood adjunct. Continue with her home dose of Suboxone 8 mg daily at 12 PM for opiate use disorder and pain. Patient stated that she has a 1 month supply of all her medications and does not need any prescriptions at this time for them. Patient will however receive a prescription for the nicotine patch. -Patient was counseled on the need for medication compliance and appropriate follow-up at mental health and also primary care for medical issues. Patient verbalized understanding and agreed. -Social work to arrange for and conduct family meeting to ensure safety upon discharge and answer any questions/concerns. Social work also to arrange for p atients follow up appointments with [facility] along with follow up with primary care provider. -Patient counseled on abstaining from recreational drugs and marijuana and alcohol. Was informed/educated on the adverse effects on their physical and mental health. Patient is going to continue on her home dose of opiate replacement maintenance therapy, Suboxone. Patient was offered inpatient rehab for substance use however patient declined at this time and preferred to do outpatient therapy, call her sponsor and also do AA/NA meetings in the community. -Patient was instructed to return to the hospital or seek immediate medical care if their psychiatric or medical systems do worsen or reoccur. Allergies Allergy/AdvReac Type Severity Reaction Status Date / Time No Known Allergies Allergy Verified 04/27/19 14:51 Laboratory Results WBC 8.1 k/uL (3.8-10.6) 04/28/19 07:32 RBC 5.02 m/uL (3.80-5.40) 04/28/19 07:32 Hgb 14.9 gm/dL (11.4-16.0) 04/28/19 07:32 Hct 43.4 % (34.0-46.0) 04/28/19 07:32 MCV 86.4 fL (80.0-100.0) 04/28/19 07:32 MCH 29.7 pg (25.0-35.0) 04/28/19 07:32 MCHC 34.3 g/dL (31.0-37.0) 04/28/19 07:32 RDW 12.3 % (11.5-15.5) 04/28/19 07:32 Plt Count 260 k/uL (150-450) 04/28/19 07:32 Neutrophils % 56 % 04/28/19 07:32 Lymphocytes % 34 % 04/28/19 07:32 Monocytes % 5 % 04/28/19 07:32 Eosinophils % 3 % 04/28/19 07:32 Basophils % 0 % 04/28/19 07:32 Neutrophils # 4.5 k/uL (1.3-7.7) 04/28/19 07:32 Lymphocytes # 2.7 k/uL (1.0-4.8) 04/28/19 07:32 Monocytes # 0.4 k/uL (0-1.0) 04/28/19 07:32 Eosinophils # 0.2 k/uL (0-0.7) 04/28/19 07:32 Basophils # 0.0 k/uL (0-0.2) 04/28/19 07:32 Sodium 139 mmol/L (137-145) 04/28/19 07:32 Potassium 4.9 mmol/L (3.5-5.1) 04/28/19 07:32 Chloride 106 mmol/L (98-107) 04/28/19 07:32 Carbon Dioxide 24 mmol/L (22-30) 04/28/19 07:32 Anion Gap 9 mmol/L 04/28/19 07:32 BUN 12 mg/dL (7-17) 04/28/19 07:32 Creatinine 0.80 mg/dL (0.52-1.04) 04/28/19 07:32 Est GFR (CKD-EPI)AfAm >90 (>60 ml/min/1.73 sqM) 04/28/19 07:32 Est GFR (CKD-EPI)NonAf >90 (>60 ml/min/1.73 sqM) 04/28/19 07:32 Glucose 95 mg/dL (74-99) 04/28/19 07:[address] Glu mg/dL 100 04/28/19 07:32 Hemoglobin A1c 5.1 % (4.0-6.0) 04/28/19 07:32 Calcium 9.2 mg/dL (8.4-10.2) 04/28/19 07:32 Total Bilirubin 0.5 mg/dL (0.2-1.3) 04/28/19 07:32 AST 20 U/L (14-36) 04/28/19 07:32 ALT 30 U/L (9-52) 04/28/19 07:32 Alkaline Phosphatase 84 U/L (38-126) 04/28/19 07:32 Total Protein 7.0 g/dL (6.3-8.2) 04/28/19 07:32 Albumin 4.0 g/dL (3.5-5.0) 04/28/19 07:32 Triglycerides 132 mg/dL (<150) 04/28/19 07:32 Cholesterol 139 mg/dL (<200) 04/28/19 07:32 LDL Cholesterol, Calc 70 mg/dL (0-99) 04/28/19 07:32 HDL Cholesterol 43 mg/dL (40-60) 04/28/19 07:32 TSH 2.020 mIU/L (0.465-4.680) 04/28/19 07:32 Urine Opiates Screen Not Detected (NotDetected) 04/27/19 11:35 Ur Oxycodone Screen Not Detected (NotDetected) 04/27/19 11:35 Urine Methadone Screen Not Detected (NotDetected) 04/27/19 11:35 Ur Propoxyphene Screen Not Detected (NotDetected) 04/27/19 11:35 Ur Barbiturates Screen Not Detected (NotDetected) 04/27/19 11:35 U Tricyclic Antidepress Not Detected (NotDetected) 04/27/19 11:35 Ur Phencyclidine Scrn Not Detected (NotDetected) 04/27/19 11:35 Ur Amphetamines Screen Not Detected (NotDetected) 04/27/19 11:35 U Methamphetamines Scrn Not Detected (NotDetected) 04/27/19 11:35 U Benzodiazepines Scrn Not Detected (NotDetected) 04/27/19 11:35 Urine Cocaine Screen Detected (NotDetected) H 04/27/19 11:35 U Marijuana (THC) Screen Not Detected (NotDetected) 04/27/19 11:35 Vital Signs Temp 97.8 F 05/02/19 06:44 Pulse 70 05/02/19 06:44 Resp 20 05/02/19 06:44 BP 132/66 05/02/19 06:44 Pulse Ox 97 04/27/19 11:11 Patient Condition at Discharge: Stable Plan - Discharge Summary Discharge Rx Participant: No New Discharge Prescriptions: New Nicotine 21Mg/24Hr Patch [Habitrol] 1 patch TRANSDERM DAILY 28 Days patch Albuterol Nebulized [Ventolin Nebulized] 2.5 mg INHALATION RT-QID PRN nebu PRN Reason: Shortness Of Breath Or Wheezing Continue traZODone HCL 50 mg PO HS Topiramate [Topamax] 50 mg PO BID Desvenlafaxine [Pristiq ER] 100 mg PO DAILY ARIPiprazole [Abilify] 5 mg PO HS Buprenorphine HCl/Naloxone HCl [Suboxone 8 mg-2 mg Sl Film] 1 film SUBLINGUAL BID Discharge Medication List ARIPiprazole [Abilify] 5 mg PO HS 12/24/18 [History] Buprenorphine HCl/Naloxone HCl [Suboxone 8 mg-2 mg Sl Film] 1 film SUBLINGUAL BID 12/24/18 [History] Desvenlafaxine [Pristiq ER] 100 mg PO DAILY 12/24/18 [History] Topiramate [Topamax] 50 mg PO BID 12/24/18 [History] traZODone HCL 50 mg PO HS 12/24/18 [History] Albuterol Nebulized [Ventolin Nebulized] 2.5 mg INHALATION RT-QID PRN nebu 05/02/19 [Rx] Nicotine 21Mg/24Hr Patch [Habitrol] 1 patch TRANSDERM DAILY 28 Days patch 05/02/19 [Rx] Follow up Appointment(s)/Referral(s): [facility] [Outside] - 05/07/19 8:00 am (05-07-19 @ 8:[address] Philip 05-10-19 @ 11:00 with Maria M Mathis) [facility] [Primary Care Provider] - 1-2 days Activity/Diet/Wound Care/Special Instructions: Activity and diet as tolerated. Avoid the use of street drugs and alcohol. Take all medications as prescribed. When you are in need of refills on your medications please contact you medical provider and/or outpatient psychiatrist to have this done. Please go to shceduled outpatient apt. for aftercare tx. If symptoms return or become worse, call the crisis line at abd /or go to the nearest emergency room for evaluation. Discharge Disposition: HOME SELF-CARE
== END 2019-05-02 13:39 | disposition home or self-care (01) | DRG 885 ==
LOC: EC 11:02 → 3MHU 13:55
PROVIDERS: ADMIT Psychiatry & Neurology Psychiatry; ATTEND Psychiatry & Neurology Psychiatry
DX: F33.2 Major depressive disorder, recurrent severe without psychotic features (principal); R45.851 Suicidal ideations; F11.11 Opioid abuse, in remission; F14.99 Cocaine use, unspecified with unspecified cocaine-induced disorder; F17.200 Nicotine dependence, unspecified, uncomplicated; F41.9 Anxiety disorder, unspecified; G47.00 Insomnia, unspecified; Z79.899 Other long term (current) drug therapy; Z81.8 Family history of other mental and behavioral disorders
CPT/HCPCS: 80053; 80061; 80306; 82075; 83036; 84443; 85025; 94640; 99285

== ENCOUNTER 2019-05-07 12:15 | Inpatient (IN) | payer MEDICAID, OTHER ==
[2019-05-07 13:23] LABS: Amphetamine Screen,Urine Not Detected (NotDetected); Barbiturate Screen,Urine Not Detected (NotDetected); Benzodiazepines Screen,Urine Not Detected (NotDetected); Cocaine Screen,Urine Detected (NotDetected); Methadone Screen, Urine Not Detected (NotDetected); Opiate Screen,Urine Not Detected (NotDetected); Oxycodone Screen, Urine Not Detected (NotDetected); Phencyclidine Screen,Urine Not Detected (NotDetected); Tricyclic Antidepressant,Urine Not Detected (NotDetected); Urn Cannabinoid Scrn Not Detected (NotDetected)
--- NOTE | 2019-05-07 13:30 | ED ---
Psych HPI - General Chief Complaint: Psychiatric Symptoms Stated Complaint: Mental health Time Seen by Provider: 05/07/19 12:19 Source: patient, RN notes reviewed Mode of arrival: ambulatory Limitations: no limitations - History of Present Illness Initial Comments: 33-year-old female presents emergency Department with chief complaint of depression, suicidal ideation. Patient states that she had a recent hospitalization for similar symptoms. She felt that she was not in long enough states that she feels unstable. She does admit that she used crack cocaine again. She was sober up until couple weeks ago. Patient states that she feels unsafe at home she has have planned overdose denies any self-harm at this time denies any homicidal ideation. Denies any physical complaints she does admit that she does have underlying Asthma but is not bothering her at this time. - Related Data Home Medications Medication Instructions Recorded Confirmed ARIPiprazole [Abilify] 5 mg PO HS 12/24/18 05/07/19 Desvenlafaxine [Pristiq ER] 100 mg PO DAILY 12/24/18 05/07/19 Topiramate [Topamax] 50 mg PO BID 12/24/18 05/07/19 traZODone HCL 50 mg PO HS 12/24/18 05/07/19 Allergies Allergy/AdvReac Type Severity Reaction Status Date / Time No Known Allergies Allergy Verified 05/07/19 13:21 Review of Systems ROS Statement: Those systems with pertinent positive or pertinent negative responses have been documented in the HPI. ROS Other: All systems not noted in ROS Statement are negative. Past Medical History Past Medical History: Asthma, Seizure Disorder Additional Past Medical History / Comment(s): last seizure two years ago. History of Any Multi-Drug Resistant Organisms: None Reported Past Surgical History: Section Past Anesthesia/Blood Transfusion Reactions: No Reported Reaction Past Psychological History: Anxiety, Bipolar, Depression Smoking Status: Current every day smoker Past Alcohol Use History: None Reported Past Drug Use History: Cocaine - Past Family History Father Family Medical History: No Reported History Mother Family Medical History: No Reported History General Exam Limitations: no limitations General appearance: alert, in no apparent distress Head exam: Present: atraumatic, normocephalic, normal inspection Eye exam: Present: normal appearance, PERRL, EOMI. Absent: scleral icterus, conjunctival injection, periorbital swelling ENT exam: Present: normal exam, normal oropharynx, mucous membranes moist Neck exam: Present: normal inspection, full ROM. Absent: tenderness, meningism us, lymphadenopathy Respiratory exam: Present: wheezes (Faint wheezes noted). Absent: normal lung sounds bilaterally, respiratory distress, rales, rhonchi, stridor Cardiovascular Exam: Present: regular rate, normal rhythm, normal heart sounds. Absent: systolic murmur, diastolic murmur, rubs, gallop, clicks GI/Abdominal exam: Present: soft, normal bowel sounds. Absent: distended, tenderness, guarding, rebound, rigid Neurological exam: Present: alert, oriented X3 Skin exam: Present: warm, dry, intact, normal color. Absent: rash Course Vital Signs 05/07/19 12:17 Temperature 97.6 F Pulse Rate 84 Respiratory 16 Rate Blood Pressure 132/78 O2 Sat by Pulse 92 L Oximetry Medical Decision Making - Medical Decision Making Patient evaluated by EPS recommends inpatient treatment by psychiatrist - Lab Data Lab Results 05/07/19 Range/Units 12:50 Urine Opiates Screen Not Detected (NotDetected) Ur Oxycodone Screen Not Detected (NotDetected) Urine Methadone Screen Not Detected (NotDetected) Ur Propoxyphene Screen Not Detected (NotDetected) Ur Barbiturates Screen Not Detected (NotDetected) U Tricyclic Antidepress Not Detected (NotDetected) Ur Phencyclidine Scrn Not Detected (NotDetected) Ur Amphetamines Screen Not Detected (NotDetected) U Methamphetamines Scrn Not Detected (NotDetected) U Benzodiazepines Scrn Not Detected (NotDetected) Urine Cocaine Screen Detected H (NotDetected) U Marijuana (THC) Screen Not Detected (NotDetected) Disposition Clinical Impression: Depression, Suicidal ideation, Cocaine use disorder Disposition: TRANSFER TO PSYCH HOSP/UNIT Condition: Stable Referrals: [facility] [Primary Care Provider] - 1-2 days Time of Disposition: 14:56
[2019-05-07] MEDS ORDERED: MAGNESIUM HYDROXIDE 2,400 MG/10 ML CUP PO PRN (16:13)
[2019-05-07] MEDS ORDERED: ACETAMINOPHEN TAB 325 MG TAB PO PRN (16:13)
[2019-05-07] MEDS ORDERED: LORazepam 2 MG/ML INJ IM PRN (16:18)
[2019-05-07] MEDS: NICOTINE 14MG/24HR PATCH TRANSDERM SCH (16:31)
[2019-05-07 16:36] VITALS: BMI 38.2
[2019-05-07] MEDS: LORazepam 1 MG TAB PO PRN (16:53)
[2019-05-07] MEDS ORDERED: predniSONE 20 MG TAB PO STA (17:24)
[2019-05-07] MEDS ORDERED: ALBUTEROL INHALER 60 PUFF/8 GM INHALER INHALATION PRN (17:26)
--- NOTE | 2019-05-07 17:27 | P.HPMEDMHU ---
History of Present Illness H&P Date: 05/07/19 (consult from Sean) Chief Complaint: consult for MHU HPI The patient is a 33-year-old female with a past medical history of major depression, cocaine abuse, opioid dependence that is admitted to the acute inpatient psychiatry service after presenting with major depression threatening suicidal ideation with plan to overdose. The patient has a history of asthma and seizure disorder, the patient denies any any significant daytime cough but reports that she's been coughing at night for the last week, she denies any wheezes or shortness of breath. She reports that she's been using her rescue inhaler daily Over the last 7 days, she denies any subjective fevers chills or night sweats. She denies any history of eczema, she denies any history of maintenance therapy on inhaled steroids. Patient reports last using cocaine 3 days ago. Has history of seizure disorder with last known seizure approximately 2 years ago UDS performed in the ER was positive for cocaine Review of Systems Pertinent positives per HPI all other review of system was negative Past Medical History Past Medical History: Asthma, Seizure Disorder Additional Past Medical History / Comment(s): last seizure two years ago. History of Any Multi-Drug Resistant Organisms: None Reported Past Surgical History: Section Past Anesthesia/Blood Transfusion Reactions: No Reported Reaction Past Psychological History: Anxiety, Bipolar, Depression Smoking Status: Current every day smoker Past Alcohol Use History: None Reported Past Drug Use History: Cocaine - Past Family History Father Family Medical History: No Reported History Mother Family Medical History: No Reported History Medications and Allergies Home Medications Medication Instructions Recorded Confirmed Type ARIPiprazole [Abilify] 5 mg PO HS 12/24/18 05/07/19 History Desvenlafaxine [Pristiq ER] 100 mg PO DAILY 12/24/18 05/07/19 History Topiramate [Topamax] 50 mg PO BID 12/24/18 05/07/19 History traZODone HCL 50 mg PO HS 12/24/18 05/07/19 History Allergies Allergy/AdvReac Type Severity Reaction Status Date / Time No Known Allergies Allergy Verified 05/07/19 16:37 Physical Exam Vitals: Vital Signs Temp Pulse Pulse Resp BP BP Pulse Ox 05/07/19 16:22 97.0 F L 73 20 124/72 05/07/19 15:58 97.8 F 77 16 124/68 97 05/07/19 12:17 97.6 F 84 16 132/78 92 L Intake and Output 05/07/19 05/07/19 05/07/19 06:59 14:59 22:59 Other: Weight 104.598 kg Constitutional: No acute distress, conversant, pleasant Eyes: Anicteric sclerae, moist conjunctiva, no lid-lag, PERRLA ENMT: NC/AT,Oropharynx clear, no erythema, exudates Neck:Supple, FROM, no masses, or JVD, No carotid bruits; No thyromegaly Lungs: Very faint wheezes, Clear to percussion, Normal respiratory effort, no accessory muscle use Cardiovascular: Heart regular in rate and rhythm, No murmurs, gallops, or rubs no peripheral edema Abdominal: Soft Nontender, nom distended, no guarding, no rebound or rigidity, Normoactive bowel sounds No hepatomegaly, No splenomegaly, No palpable mass No abdominal wall hernia noted Skin: Normal temperature, tone, texture, turgor, No induration No subcutaneous nodules, No rash, lesions, No ulcers Extremities:No digital cyanosis No clubbing, Pedal pulses intact and symmetrical Radial pulses intact and symmetrical Normal gait and station, No calf tenderness Psychiatric: Alert and oriented to person, place and time, Appropriate affect Intact judgement Neuro: Muscles Strength 5/5 in all 4 extremities, Sensation to light touch gr ossly present throughout, Cranial nerves II-XII grossly intact. No focal sensory deficits Cranial Nerve Examination - Cranial Nerves Cranial Nerve II- Optic: Intact Cranial Nerve III- Oculomotor: Intact Cranial Nerve IV- Trochlear: Intact Cranial Nerve V- Trigeminal: Intact Cranial Nerve - Abducens: Intact Cranial Nerve VII- Facial: Intact Cranial Nerve VIII- Auditory: Intact Cranial Nerve IX- Glossopharyngeal: Intact Cranial Nerve X- Vagus: Intact Cranial Nerve XI- Accessory: Intact Cranial Nerve XII- Hypoglossal: Intact Results Labs: Abnormal Lab Results - Last 24 Hours (Table) 05/07/19 Range/Units 12:50 Urine Cocaine Screen Detected H (NotDetected) Thrombosis Risk Factor Assmnt - Choose All That Apply Any of the Below Risk Factors Present?: No Assessment and Plan Assessment: Mild acute exacerbation of intermittent asthma Seizure disorder Major depression with suicidal ideation Cocaine abuse Opiate dependence on Suboxone therapy Plan: The patient is admitted to acute inpatient psychiatry team, will defer to psychiatry for ongoing psychotropic therapy with cognitive behavioral treatment. Patient is medically stable does have a mild acute exacerbation of her asthma, she started on steroids with prednisone for 5 days, Mucinex 600mg BID and albuterol inhaler every 4 PRN. patient will also be qiven a flu shot. I appreciate the opportunity to be involved in this patient's care , for further questions please not hesitate to contact [facility]
[2019-05-07] MEDS: TOPIRAMATE 25 MG TAB PO SCH (20:52)
[2019-05-07] MEDS: traZODone HCL 50 MG TAB PO SCH (20:52)
[2019-05-07] MEDS: ARIPiprazole 5 MG TAB PO SCH (20:52)
[2019-05-08] MEDS: MAG HYDROX/AL HYDROX/SIMETH 30 ML CUP PO PRN (05:17)
[2019-05-08] MEDS: LORazepam 1 MG TAB PO PRN ×3 (05:17→20:52)
[2019-05-08] MEDS: DESVENLAFAXINE SUCCINATE 50 MG TAB.ER.24H PO SCH (07:52)
[2019-05-08] MEDS: predniSONE 20 MG TAB PO SCH (07:52)
[2019-05-08] MEDS: NICOTINE 14MG/24HR PATCH TRANSDERM SCH (07:52)
[2019-05-08] MEDS: TOPIRAMATE 25 MG TAB PO SCH ×2 (07:53→20:50)
[2019-05-08] MEDS: guaiFENesin 600 MG TABLET.ER PO SCH (07:53)
[2019-05-08 08:27] LABS: Basophils % (A) 0 %; Eosinophils % (A) 0 %; HCT 43.4 % (34.0-46.0); HGB 14.4 gm/dL (11.4-16.0); Lymphocytes # (A) 2.8 k/uL (1.0-4.8); Lymphocytes % (A) 29 %; MCH 28.3 pg (25.0-35.0); MCHC 33.2 g/dL (31.0-37.0); MCV 85.2 fL (80.0-100.0); Mean Platelet Volume 6.3; Monocytes # (A) 0.4 k/uL (0-1.0); Monocytes % (A) 4 %; Neutrophils # (A) 6.2 k/uL (1.3-7.7); Neutrophils % (A) 63 %; Platelet Count 298 k/uL (150-450); RDW 12.2 % (11.5-15.5); WBC 9.7 k/uL (3.8-10.6)
[2019-05-08 08:37] LABS: ALT 91 U/L (9-52); AST 29 U/L (14-36); African American GFR (CKD) >90 (>60 ml/min/1.73 sqM); Albumin 4.3 g/dL (3.5-5.0); Alkaline Phosphatase 99 U/L (38-126); Anion Gap 8 mmol/L; Blood Urea Nitrogen 12 mg/dL (7-17); Calcium 9.9 mg/dL (8.4-10.2); Carbon Dioxide 27 mmol/L (22-30); Chloride 107 mmol/L (98-107); Cholesterol 170 mg/dL (<200); Glucose 108 mg/dL (74-99); HDL Cholesterol 38 mg/dL (40-60); LDL Cholesterol,Calculated 108 mg/dL (0-99); Sodium 142 mmol/L (137-145); Total Bilirubin 0.8 mg/dL (0.2-1.3); Total Protein 7.6 g/dL (6.3-8.2); Triglycerides 119 mg/dL (<150)
[2019-05-08 08:38] LABS: Potassium 3.8 mmol/L (3.5-5.1)
[2019-05-08] MEDS ORDERED: LOPERAMIDE 2 MG CAP PO PRN (11:40)
[2019-05-08] MEDS ORDERED: DICYCLOMINE 20 MG TAB PO PRN (11:41)
[2019-05-08] MEDS ORDERED: DICYCLOMINE 20 MG TAB PO SCH (11:45)
--- NOTE | 2019-05-08 11:59 | P.HP ---
Psychiatric H&P - . H&P Date: 05/08/19 History & Physical: Allergies Allergy/AdvReac Type Severity Reaction Status Date / Time No Known Allergies Allergy Verified 05/07/19 16:37 Vital Signs Temp 97.7 F 05/08/19 05:52 Pulse 72 05/08/19 05:52 Resp 18 05/08/19 05:52 BP 142/94 05/08/19 05:52 Pulse Ox 97 05/07/19 15:58 Intake & Output 05/07/19 05/08/19 05/08/19 18:59 06:59 18:59 Weight 104.598 kg Laboratory Last Values WBC 9.7 k/uL (3.8-10.6) 05/08/19 08:08 RBC 5.10 m/uL (3.80-5.40) 05/08/19 08:08 Hgb 14.4 gm/dL (11.4-16.0) 05/08/19 08:08 Hct 43.4 % (34.0-46.0) 05/08/19 08:08 MCV 85.2 fL (80.0-100.0) 05/08/19 08:08 MCH 28.3 pg (25.0-35.0) 05/08/19 08:08 MCHC 33.2 g/dL (31.0-37.0) 05/08/19 08:08 RDW 12.2 % (11.5-15.5) 05/08/19 08:08 Plt Count 298 k/uL (150-450) 05/08/19 08:08 Neutrophils % 63 % 05/08/19 08:08 Lymphocytes % 29 % 05/08/19 08:08 Monocytes % 4 % 05/08/19 08:08 Eosinophils % 0 % 05/08/19 08:08 Basophils % 0 % 05/08/19 08:08 Neutrophils # 6.2 k/uL (1.3-7.7) 05/08/19 08:08 Lymphocytes # 2.8 k/uL (1.0-4.8) 05/08/19 08:08 Monocytes # 0.4 k/uL (0-1.0) 05/08/19 08:08 Eosinophils # 0.0 k/uL (0-0.7) 05/08/19 08:08 Basophils # 0.0 k/uL (0-0.2) 05/08/19 08:08 Sodium 142 mmol/L (137-145) 05/08/19 08:08 Potassium 3.8 mmol/L (3.5-5.1) 05/08/19 08:08 Chloride 107 mmol/L (98-107) 05/08/19 08:08 Carbon Dioxide 27 mmol/L (22-30) 05/08/19 08:08 Anion Gap 8 mmol/L 05/08/19 08:08 BUN 12 mg/dL (7-17) 05/08/19 08:08 Creatinine 0.63 mg/dL (0.52-1.04) 05/08/19 08:08 Est GFR (CKD-EPI)AfAm >90 (>60 ml/min/1.73 sqM) 05/08/19 08:08 Est GFR (CKD-EPI)NonAf >90 (>60 ml/min/1.73 sqM) 05/08/19 08:08 Glucose 108 mg/dL (74-99) H 05/08/19 08:08 Calcium 9.9 mg/dL (8.4-10.2) 05/08/19 08:08 Total Bilirubin 0.8 mg/dL (0.2-1.3) 05/08/19 08:08 AST 29 U/L (14-36) 05/08/19 08:08 ALT 91 U/L (9-52) H 05/08/19 08:08 Alkaline Phosphatase 99 U/L (38-126) 05/08/19 08:08 Total Protein 7.6 g/dL (6.3-8.2) 05/08/19 08:08 Albumin 4.3 g/dL (3.5-5.0) 05/08/19 08:08 Triglycerides 119 mg/dL (<150) 05/08/19 08:08 Cholesterol 170 mg/dL (<200) 05/08/19 08:08 LDL Cholesterol, Calc 108 mg/dL (0-99) H 05/08/19 08:08 HDL Cholesterol 38 mg/dL (40-60) L 05/08/19 08:08 TSH 0.909 mIU/L (0.465-4.680) 05/08/19 08:08 Urine Opiates Screen Not Detected (NotDetected) 05/07/19 12:50 Ur Oxycodone Screen Not Detected (NotDetected) 05/07/19 12:50 Urine Methadone Screen Not Detected (NotDetected) 05/07/19 12:50 Ur Propoxyphene Screen Not Detected (NotDetected) 05/07/19 12:50 Ur Barbiturates Screen Not Detected (NotDetected) 05/07/19 12:50 U Tricyclic Antidepress Not Detected (NotDetected) 05/07/19 12:50 Ur Phencyclidine Scrn Not Detected (NotDetected) 05/07/19 12:50 Ur Amphetamines Screen Not Detected (NotDetected) 05/07/19 12:50 U Methamphetamines Scrn Not Detected (NotDetected) 05/07/19 12:50 U Benzodiazepines Scrn Not Detected (NotDetected) 05/07/19 12:50 Urine Cocaine Screen Detected (NotDetected) H 05/07/19 12:50 U Marijuana (THC) Screen Not Detected (NotDetected) 05/07/19 12:50 05/08/19 11:44 IDENTIFYING DATA: Patient is a 33-year-old female who is currently , lives with her mother and has a history of polysubstance use and depression HPI: Patient presented to the hospital yesterday after she claimed that she relapsed on cocaine and started feeling depressed and suicidal. Patient claimed that she was doing well after being discharged from the mental health unit on 04/27/2019 and claims that she was taking her medications every day up until approximately 3-4 days ago when she stated that she was around other people who were doing drugs and decided to use cocaine. She stated that she used approximately $20 worth at that time. She states that after that day she did not take her medications and claims to be feeling worse with regards to her mood and anxiety and became suicidal with no plan and presented to the hospital. She states that at this time she is guilty and feels that her mother is not helping her as she was requesting her to bring her Suboxone into the hospital so she can be on it on the unit however her mother is declining to do so. Patient states that she needs to go to rehab at this point and work on her sobriety. She states that she has poor sleep at night is having anxiety from opiate withdrawal and also claims to have some diarrhea and muscle pains. Patient states she has fair energy and fair appetite. Patient denies any suicidal or homicidal ideations intent or plan. At this time patient denies any auditory or visual hallucinations. Patient denies any flight of ideas racing thoughts and increased in goal directed behavior. PAST PSYCHIATRIC HISTORY: Patient states that she has major depressive disorder and polysubstance abuse, currently using cocaine. Patient was previously on Suboxone 8 mg however her mother is not agreeable to bring it into the hospital for her. Patient was recently discharged from the mental health unit on 04/27/2019 and was supposed to have outpatient [facility] follow-up today. Patient denies any history of suicide attempts. PMH: Chronic pain ALLERGIES: as per EMR CHEMICAL DEPENDENCY HISTORY: She states that she does not use alcohol at this time and does not use marijuana. Patient claims that she does have a history of opiate use disorder was abusing Vicodin and is currently on Suboxone. 2 history of abusing crack cocaine. She was previously at [facility] where she attended inpatient chemical dependency treatment. FAMILY PSYCHIATRIC/SUBSTANCE USE HISTORY: She states that there is significant polysubstance abuse in her family. SOCIAL HISTORY: Patient is currently for the past 5 years and currently resides with her parents and her . She states that she has 2 children one 13 years old and the other 19 years old. Patient is unemployed at this time and completed up till the 11th grade of education. MENTAL STATUS EXAM: General Appearance: Patient appears to be overweight, stated age is alert, directable and guarded/evasive. Poor hygiene and poor grooming. Poor eye contact Behavior: Patient is calmly seated without any agitated behavior. Mild anxiety present. Speech: Patient's speech is fluent and nonpressured. Soft tone Mood/Affect: Patient reports their mood is depressed, affect is congruent and constricted. Suicidality/Homicidality: Patient denies having any suicidal or homicidal ideation intent or plan. Perceptions: Patient denies any auditory or visual hallucinations. Though content/process: There is no evidence of any delusional thought content and thought process is linear and goal-directed. Memory and concentration: AOX3, grossly intact for the purposes of this session. Can spell "WORLD" backwards Judgment and insight: Poor/superficial STRENGTHS/WEAKNESSES: strength is that patient had a good support system, weaknesses that patient has polysubstance abuse history and chronic mental illness. INTELLECT: Below average IMPRESSIONS: Depressive disorder unspecified rule out cocaine-induced depressive disorder Opiate use disorder, currently in withdrawal PLAN: -Patient is admitted under voluntary status to MHU for stabilization of psychiatric symptoms and safety. Patient signed adult voluntary form and medication consent and is placed in patient's chart. -Medications : Will start patient on trazodone 50 mg at bedtime for mood/insomnia. Will restart patient on Abilify 5 mg daily for mood stabilization/mood adjunct. Will restart patient on Pristiq 100 mg daily for mood. -At this time patient is not able to get her mother to bring her Suboxone to the unit for maintenance therapy. Patient is agreeable to all start PRN medications for opiate withdrawal including clonidine, dicyclomine, loperamide and Tylenol. -Ativan PRN for anxiety. This will be discontinued tomorrow. -Patient was counselled on substance abuse and desired to cut back on use -Patient was informed of the risks, benefits and side effects of the medication and patient verbally consented to taking the medications. Patient signed med consent form and was placed in chart. -NRT - nicotine patch - on board for discharge planning. Patient is agreeable to go to inpatient substance use rehab. 05/08/19 11:46
[2019-05-08] MEDS: cloNIDine HCL 0.1 MG TAB PO PRN (13:49)
[2019-05-08] MEDS: ARIPiprazole 5 MG TAB PO SCH (20:50)
[2019-05-08] MEDS: traZODone HCL 50 MG TAB PO SCH (20:50)
[2019-05-09] MEDS ORDERED: LORazepam 1 MG TAB ONE (07:26)
[2019-05-09] MEDS: DESVENLAFAXINE SUCCINATE 50 MG TAB.ER.24H PO SCH (09:21)
[2019-05-09] MEDS: TOPIRAMATE 25 MG TAB PO SCH ×2 (09:21→22:42)
[2019-05-09] MEDS: NICOTINE 14MG/24HR PATCH TRANSDERM SCH (09:21)
[2019-05-09] MEDS: guaiFENesin 600 MG TABLET.ER PO SCH ×2 (09:21→09:30)
[2019-05-09] MEDS: predniSONE 20 MG TAB PO SCH (09:21)
[2019-05-09] MEDS: cloNIDine HCL 0.1 MG TAB PO PRN (09:52)
--- NOTE | 2019-05-09 11:27 | P.PN ---
Progress Note - Text Progress Note Date: 05/09/19 Interval History: Patient was seen participating in group and was agreeable to speak the proposal writer today. Patient appeared to have on makeup this morning and stated that she woke up feeling more positive and took a shower and put on fresh clothes for the day. She states that she is trying to remain hopeful with a positive spirit. She states that she is continuing to go through withdrawals however is trying to manage it. Patient is stating that she is taking some of the PRN medications which have been helping and asked to remain on the Ativan when necessary for anxiety. She claims that she did find it difficult to sleep last night due to the withdrawals. At this time patient denies any suicidal or homical ideations, intent or plan. Patient denies any auditory, visual hallucinations and denies any paranoia or delusions. Patient denies any side effects from the medications and has been compliant with meds. Mental Status Exam: General Appearance: Patient appears to be stated age is alert, directable and cooperative. Patient appears to have improved hygiene and grooming, poor eye contact. Behavior: Patient is calmly seated without any agitated behavior. Speech: Patient's speech is fluent and nonpressured. Mood/Affect: Mood is improving mildly, affect is congruent and constricted. Suicidality/Homicidality: Patient denies having any suicidal or homicidal ideation intent or plan. Perceptions: Patient denies any auditory or visual hallucinations. Though content/process: There is no evidence of any delusional thought content and thought process is linear and goal-directed. Memory and concentration: AOX3, grossly intact for the purposes of this session Judgment and insight: Poor/superficial Assessment Depressive disorder unspecified, rule out cocaine-induced depressive disorder Opiate use disorder, currently in withdrawal Plan: -Patient continues to meet criteria for inpatient psychiatric admission for symptom stabilization and safety. Patient has signed adult voluntary form and medication consent and was placed in patient's chart. -Medications: Continue with trazodone 50 mg at bedtime for mood/insomnia. Continue with Abilify 5 mg daily for mood stabilization/mood adjunct. Continue with Pristiq 100 mg daily for mood. -PRN medications for opiate withdrawal including clonidine, dicyclomine, loperamide and Tylenol. -When necessary Ativan for anxiety. -NRT - nicotine patch -SW on board for discharge planning. Continuing to encourage patient to go to inpatient substance use rehab, patient will call today for intake.
[2019-05-09] MEDS: LORazepam 1 MG TAB PO PRN (15:23)
[2019-05-09] MEDS: ZIPRASIDONE 20 MG VIAL IM PRN (17:11)
[2019-05-09] MEDS: ARIPiprazole 5 MG TAB PO SCH (22:42)
[2019-05-09] MEDS: traZODone HCL 50 MG TAB PO SCH (22:42)
[2019-05-10] MEDS: LORazepam 1 MG TAB PO PRN ×2 (06:54→13:52)
[2019-05-10 08:19] LABS: Amorphous Sediment,Urine Rare /hpf; Appearance,Urine Turbid (Clear); Bacteria,Urine Occasional /hpf; Bilirubin,Urine Negative (Negative); Blood,Urine Small (Negative); Calcium Oxalate Crystals,Urine Many /hpf; Color,Urine Yellow; Glucose,Urine (UA) Negative (Negative); Ketones,Urine Negative (Negative); Leukocyte Esterase,Urine Moderate (Negative); Mucus,Urine Many /hpf; Nitrite,Urine Negative (Negative); PH, Urine 5.5 (5.0-8.0); Protein,Urine 1+ (Negative); RBC,Urine 9 /hpf (0-5); Specific Gravity,Urine 1.029 (1.001-1.035); Squamous Epithelial Cell,Urine 98 /hpf (0-4); Urobilinogen,Urine <2.0 mg/dL (<2.0); WBC,Urine 13 /hpf (0-5)
--- NOTE | 2019-05-10 08:39 | P.PN ---
Progress Note - Text Progress Note Date: 05/10/19 Interval History: Patient was seen wandering the hallways and was agreeable to speak the expert medical writer today. Patient stated that she did not have the best sleep last night and claims that she is still having some withdrawal symptoms. She states that the clonidine is helping and is taking Ativan when necessary for anxiety which is also helping. Patient was requesting an increase in her trazodone to 100 mg. She states that she did not call the substance use rehab phoneline yesterday and claims that she will do that today. Patient also states that she is concerned that she may be as she is 3 days late for her period. She states that she had unprotected sex 3 days before coming into the hospital. Patient did do a urine screen which turned out to be negative. At this time patient denies any suicidal or homical ideations, intent or plan. Patient denies any auditory, visual hallucinations and denies any paranoia or delusions. Patient denies any side effects from the medications and has been compliant with meds. Mental Status Exam: General Appearance: Patient appears to be stated age is alert, directable and cooperative. Patient appears to have improved hygiene and grooming, poor eye contact. Behavior: Patient is calmly seated without any agitated behavior. Speech: Patient's speech is fluent and nonpressured. Soft tone. Mood/Affect: Mood is improving mildly, affect is congruent and constricted. Suicidality/Homicidality: Patient denies having any suicidal or homicidal ideation intent or plan. Perceptions: Patient denies any auditory or visual hallucinations. Though content/process: There is no evidence of any delusional thought content and thought process is linear and goal-directed. Memory and concentration: AOX3, grossly intact for the purposes of this session Judgment and insight: Poor/superficial, improving mildly. Assessment Depressive disorder unspecified, rule out cocaine-induced depressive disorder Opiate use disorder, currently in withdrawal Plan: -Patient continues to meet criteria for inpatient psychiatric admission for symp kena stabilization and safety. Patient has signed adult voluntary form and medication consent and was placed in patient's chart. -Medications: Increased trazodone 100 mg at bedtime for mood/insomnia. Continue with Abilify 5 mg daily for mood stabilization/mood adjunct. Continue with Pristiq 100 mg daily for mood. -PRN medications for opiate withdrawal including clonidine, dicyclomine, loperamide and Tylenol. -When necessary Ativan for anxiety. -NRT - nicotine patch -SW on board for discharge planning. Continuing to encourage patient to go to inpatient substance use rehab.
[2019-05-10] MEDS: DESVENLAFAXINE SUCCINATE 50 MG TAB.ER.24H PO SCH (08:53)
[2019-05-10] MEDS: predniSONE 20 MG TAB PO SCH (08:53)
[2019-05-10] MEDS: guaiFENesin 600 MG TABLET.ER PO SCH (08:53)
[2019-05-10] MEDS: NICOTINE 14MG/24HR PATCH TRANSDERM SCH (08:53)
[2019-05-10] MEDS: TOPIRAMATE 25 MG TAB PO SCH ×2 (08:54→20:34)
[2019-05-10] MEDS: cloNIDine HCL 0.1 MG TAB PO PRN (08:55)
[2019-05-10] MEDS: ZIPRASIDONE 20 MG VIAL IM PRN (19:23)
[2019-05-10] MEDS: traZODone HCL 100 MG TAB PO SCH (20:34)
[2019-05-10] MEDS: ARIPiprazole 5 MG TAB PO SCH (20:34)
[2019-05-11] MEDS: LORazepam 1 MG TAB PO PRN (05:16)
[2019-05-11] MEDS: NICOTINE 14MG/24HR PATCH TRANSDERM SCH (09:34)
[2019-05-11] MEDS: TOPIRAMATE 25 MG TAB PO SCH ×2 (09:34→21:49)
[2019-05-11] MEDS: guaiFENesin 600 MG TABLET.ER PO SCH ×2 (09:35→13:11)
[2019-05-11] MEDS: predniSONE 20 MG TAB PO SCH ×2 (09:35→15:10)
[2019-05-11] MEDS: DESVENLAFAXINE SUCCINATE 50 MG TAB.ER.24H PO SCH (09:36)
[2019-05-11] MEDS: cloNIDine HCL 0.1 MG TAB PO PRN (09:39)
--- NOTE | 2019-05-11 12:00 | P.PN ---
Progress Note - Text Progress Note Date: 05/11/19 Interval History: Patient was seen wandering the hallways and was agreeable to speak the writer editor today. She claims that her mood and anxiety are gradually improving. Patient stated that she is feeling mildly improved today however claims to continuing to have withdrawal symptoms and is nonspecific about him however does claim that the clonidine is helping her. She continues to endorse anxiety especially when thinking about the future and going to rehab. Patient is claiming that she got on the phone with rehab and is awaiting their approval for her to be accepted. She states that she is sleeping better on the trazodone to 100 mg. At this time patient denies any suicidal or homical ideations, intent or plan. Patient denies any auditory, visual hallucinations and denies any paranoia or delusions. Patient denies any side effects from the medications and has been compliant with meds. Mental Status Exam: General Appearance: Patient appears to be stated age is alert, directable and cooperative. Patient appears to have improving hygiene and grooming, poor eye contact. Behavior: Patient is calmly seated without any agitated behavior. Speech: Patient's speech is fluent and nonpressured. Soft tone Mood/Affect: Mood is improving mildly, affect is congruent and constricted. Suicidality/Homicidality: Patient denies having any suicidal or homicidal ideation intent or plan. Perceptions: Patient denies any auditory or visual hallucinations. Though content/process: There is no evidence of any delusional thought content and thought process is linear and goal-directed. Memory and concentration: AOX3, grossly intact for the purposes of this session Judgment and insight: Poor/superficial, improving mildly. Assessment Depressive disorder unspecified, rule out cocaine-induced depressive disorder Opiate use disorder, currently in withdrawal Plan: -Patient continues to meet criteria for inpatient psychiatric admission for symptom stabilization and safety. Patient has signed adult voluntary form and medication consent and was placed in patient's chart. -Medications: Continue with trazodone 100 mg at bedtime for mood/insomnia. Continue with Abilify 5 mg daily for mood stabilization/mood adjunct. Continue with Pristiq 100 mg daily for mood. -PRN medications for opiate withdrawal including clonidine, dicyclomine, loperamide and Tylenol. -Will decrease Ativan to 0.5 mg when necessary for anxiety with the plan to continue to taper off. -NRT - nicotine patch -SW on board for discharge planning. Patient will be going to inpatient substance use rehab likely discharge next week.
[2019-05-11] MEDS: LORazepam 0.5 MG TAB PO PRN ×2 (13:16→22:29)
[2019-05-11] MEDS: traZODone HCL 100 MG TAB PO SCH (21:48)
[2019-05-11] MEDS: ARIPiprazole 5 MG TAB PO SCH (21:49)
[2019-05-12] MEDS: NICOTINE 14MG/24HR PATCH TRANSDERM SCH (08:28)
[2019-05-12] MEDS: DESVENLAFAXINE SUCCINATE 50 MG TAB.ER.24H PO SCH (08:28)
[2019-05-12] MEDS: guaiFENesin 600 MG TABLET.ER PO SCH ×2 (08:28→08:33)
[2019-05-12] MEDS: TOPIRAMATE 25 MG TAB PO SCH ×2 (08:28→20:59)
[2019-05-12] MEDS: cloNIDine HCL 0.1 MG TAB PO PRN ×2 (08:31→18:41)
[2019-05-12] MEDS: LORazepam 0.5 MG TAB PO PRN ×2 (08:31→16:39)
--- NOTE | 2019-05-12 09:20 | P.PN ---
Progress Note - Text Progress Note Date: 05/12/19 Interval History: Patient was seen wandering the hallways and was agreeable to speak the fiction and nonfiction prose writer today. She claims that her mood and anxiety are gradually improving however today she complained of not being able to sleep last night and required a Geodon when necessary for agitation. Patient claims that the clonidine is helping her with her withdrawals and is thankful for that. She also states that "it's going to be a tough recovery" regarding her outlook on quitting substances. Patient also is agreeable to have a beta-hCG serum drawn today. Patient is claiming that she got on the phone with rehab and is awaiting their approval for her to be accepted. At this time patient denies any suicidal or homical ideations, intent or plan. Patient denies any auditory, visual hallucinations and denies any paranoia or delusions. Patient denies any side effects from the medications and has been compliant with meds. Mental Status Exam: General Appearance: Patient appears to be stated age is alert, directable and cooperative. Patient appears to have improving hygiene and grooming, fair eye contact. Behavior: Patient is calmly seated without any agitated behavior. Appears somewhat anxious. Speech: Patient's speech is fluent and nonpressured. Soft tone Mood/Affect: Mood is improving mildly, affect is congruent and constricted. Suicidality/Homicidality: Patient denies having any suicidal or homicidal ideation intent or plan. Perceptions: Patient denies any auditory or visual hallucinations. Though content/process: There is no evidence of any delusional thought content and thought process is linear and goal-directed. Memory and concentration: AOX3, grossly intact for the purposes of this session Judgment and insight: Poor/superficial, improving mildly. Assessment Depressive disorder unspecified, rule out cocaine-induced depressive disorder Opiate use disorder, currently in withdrawal Plan: -Patient continues to meet criteria for inpatient psychiatric admission for symptom stabilization and safety. Patient has signed adult voluntary form and medication consent and was placed in patient's chart. -Medications: Increased trazodone 150 mg at bedtime for mood/insomnia. Continue with Abilify 5 mg daily for mood stabilization/mood adjunct. Continue with Pristiq 100 mg daily for mood. -Ordered serum beta-hCG as there is concern for possible . -PRN medications for opiate withdrawal including clonidine, dicyclomine, loperamide and Tylenol. -Will continue with Ativan to 0.5 mg when necessary for anxiety with the plan to continue to taper off. -NRT - nicotine patch -SW on board for discharge planning. Patient will be going to inpatient substance use rehab likely discharge next week.
[2019-05-12] MEDS: ARIPiprazole 5 MG TAB PO SCH (20:59)
[2019-05-12] MEDS: traZODone HCL 100 MG TAB PO SCH (20:59)
[2019-05-13] MEDS: MAG HYDROX/AL HYDROX/SIMETH 30 ML CUP PO PRN (01:10)
[2019-05-13] MEDS: guaiFENesin 600 MG TABLET.ER PO SCH (08:27)
[2019-05-13] MEDS: TOPIRAMATE 25 MG TAB PO SCH ×2 (08:27→21:48)
[2019-05-13] MEDS: DESVENLAFAXINE SUCCINATE 50 MG TAB.ER.24H PO SCH (08:27)
[2019-05-13] MEDS: NICOTINE 14MG/24HR PATCH TRANSDERM SCH (08:27)
[2019-05-13] MEDS: LORazepam 0.5 MG TAB PO PRN ×2 (08:29→14:55)
--- NOTE | 2019-05-13 11:50 | P.PN ---
Progress Note - Text Progress Note Date: 05/13/19 Interval History: Patient was seen laying down in bed and was agreeable to speak the va underwriter today. She claims that her mood and anxiety are gradually improving. She states that she is now feeling more nauseous and believes that it is from her opioid withdrawal. Patient was aware of her beta-hCG being negative. She states that she had fair sleep last night with the trazodone. Patient claims that the clonidine is helping her with her withdrawals. She agrees that being off the Suboxone is affecting her and claims that she needs to find something to replace that. Patient was preoccupied with medications this morning. At this time patient denies any suicidal or homical ideations, intent or plan. Patient denies any auditory, visual hallucinations and denies any paranoia or delusions. Patient denies any side effects from the medications and has been compliant with meds. Mental Status Exam: General Appearance: Patient appears to be stated age is alert, directable and cooperative. Patient appears to have improving hygiene and grooming, fair eye contact. Behavior: Patient is calmly seated without any agitated behavior. Speech: Patient's speech is fluent and nonpressured. Soft tone Mood/Affect: Mood is improving mildly, affect is congruent and constricted. Suicidality/Homicidality: Patient denies having any suicidal or homicidal ideation intent or plan. Perceptions: Patient denies any auditory or visual hallucinations. Though content/process: There is no evidence of any delusional thought content and thought process is linear and goal-directed. Memory and concentration: AOX3, grossly intact for the purposes of this session Judgment and insight: Poor/superficial, improving mildly. Assessment Depressive disorder unspecified, rule out cocaine-induced depressive disorder Opiate use disorder, currently in withdrawal Plan: -Patient continues to meet criteria for inpatient psychiatric admission for symptom stabilization and safety. Patient has signed adult voluntary form and medication consent and was placed in patient's chart. -Medications: Continue with trazodone 150 mg at bedtime for mood/insomnia. Continue with Abilify 5 mg daily for mood stabilization/mood adjunct. Continue with Pristiq 100 mg daily for mood. -beta-hCG quantitative is negative. -PRN medications for opiate withdrawal including clonidine, dicyclomine, loperamide and Tylenol. -Will continue with Ativan to 0.5 mg when necessary for anxiety with the plan to continue to taper off. -NRT - nicotine patch -SW on board for discharge planning. Patient will be going to inpatient substance use rehab likely discharge next week.
[2019-05-13] MEDS: ONDANSETRON 4 MG TAB PO PRN (13:00)
[2019-05-13] MEDS: traZODone HCL 100 MG TAB PO SCH (21:47)
[2019-05-13] MEDS: ARIPiprazole 5 MG TAB PO SCH (21:48)
[2019-05-14] MEDS: LORazepam 0.5 MG TAB PO PRN ×2 (07:21→21:04)
[2019-05-14] MEDS: ONDANSETRON 4 MG TAB PO PRN (07:21)
[2019-05-14] MEDS: guaiFENesin 600 MG TABLET.ER PO SCH (08:48)
[2019-05-14] MEDS: TOPIRAMATE 25 MG TAB PO SCH ×2 (08:48→21:05)
[2019-05-14] MEDS: NICOTINE 14MG/24HR PATCH TRANSDERM SCH (08:48)
[2019-05-14] MEDS: DESVENLAFAXINE SUCCINATE 50 MG TAB.ER.24H PO SCH (08:48)
[2019-05-14] MEDS: cloNIDine HCL 0.1 MG TAB PO PRN ×2 (08:49→21:07)
[2019-05-14] MEDS ORDERED: ONDANSETRON ODT 4 MG TAB PO PRN (09:27)
--- NOTE | 2019-05-14 09:44 | P.PN ---
Progress Note - Text Progress Note Date: 05/14/19 Interval History: Patient was seen laying down in bed and was agreeable to speak with the sign writer hand today. She claims that her mood and anxiety are gradually improving and she claims that she was able to sleep a little bit better last night. She did however request to have her trazodone increased once again. Patient claims that she feels that her irritability from the withdrawal is continuing and clonidine is helping with that. Patient also claims that the Zofran is helping before meals. Patient claims that she is continuing to look for to go to rehab and states that she is going to [facility] on . She had missed a fair energy and fair appetite. At this time patient denies any suicidal or homical ideations, intent or plan. Patient denies any auditory, visual hallucinations and denies any paranoia or delusions. Patient denies any side effects from the medications and has been compliant with meds. Mental Status Exam: General Appearance: Patient appears to be stated age is alert, directable and cooperative. Patient appears to have improving hygiene and grooming, fair eye contact. Behavior: Patient is calmly seated without any agitated behavior. Speech: Patient's speech is fluent and nonpressured. Soft tone Mood/Affect: Mood is improving mildly, affect is congruent and constricted. Suicidality/Homicidality: Patient denies having any suicidal or homicidal ideation intent or plan. Perceptions: Patient denies any auditory or visual hallucinations. Though content/process: There is no evidence of any delusional thought content and thought process is linear and goal-directed. Memory and concentration: AOX3, grossly intact for the purposes of this session Judgment and insight: Poor/superficial, improving mildly. Assessment Depressive disorder unspecified, rule out cocaine-induced depressive disorder Opiate use disorder, currently in withdrawal Plan: -Patient continues to meet criteria for inpatient psychiatric admission for symptom stabilization and safety. Patient has signed adult voluntary form and medication consent and was placed in patient's chart. -Medications: Increased trazodone 200 mg at bedtime for mood/insomnia. Continue with Abilify 5 mg daily for mood stabilization/mood adjunct. Continue with Pristiq 100 mg daily for mood. -beta-hCG quantitative is negative. Whole repeat prior to discharge. -PRN medications for opiate withdrawal including clonidine, Zofran, dicyclomine, loperamide and Tylenol. -Will continue with Ativan to 0.5 mg when necessary for anxiety with the plan to continue to taper off. -NRT - nicotine patch -SW on board for discharge planning. Patient will be going to inpatient substance use rehab, [place] intake scheduled for .
[2019-05-14] MEDS: ARIPiprazole 5 MG TAB PO SCH (21:04)
[2019-05-14] MEDS: traZODone HCL 100 MG TAB PO SCH (21:06)
[2019-05-15] MEDS: NICOTINE 14MG/24HR PATCH TRANSDERM SCH (08:43)
[2019-05-15] MEDS: TOPIRAMATE 25 MG TAB PO SCH ×2 (08:43→21:36)
[2019-05-15] MEDS: DESVENLAFAXINE SUCCINATE 50 MG TAB.ER.24H PO SCH (08:43)
[2019-05-15] MEDS: cloNIDine HCL 0.1 MG TAB PO PRN (08:46)
[2019-05-15] MEDS: LORazepam 0.5 MG TAB PO PRN (08:46)
--- NOTE | 2019-05-15 10:32 | P.PN ---
Progress Note - Text Progress Note Date: 05/15/19 Interval History: Patient was seen wandering the hallways and was agreeable to speak with the wr iter today. She claims that her mood and anxiety have been improving and she denies any overnight complaints. She did mention that she felt her legs feeling restless this morning and claims that she is never felt that before. She claims that she was able to sleep a little bit better last night on the increase in her trazodone and things typewriter mechanic for the. Patient claims that she feels that her irri tability from the withdrawal is improving. She states that she only takes clonidine once a day now and is trying to wean herself off. Patient claims that her energy level is fair at this time and has a fair appetite with an improvement in her nausea. At this time patient denies any suicidal or homical ideations, intent or plan. Patient denies any auditory, visual hallucinations and denies any paranoia or delusions. Patient denies any side effects from the medications and has been compliant with meds. Mental Status Exam: General Appearance: Patient appears to be stated age is alert, directable and cooperative. Patient appears to have improving hygiene and grooming, fair eye contact. Behavior: Patient is calmly seated without any agitated behavior. Speech: Patient's speech is fluent and nonpressured. Soft tone Mood/Affect: Mood is improving mildly, affect is congruent and constricted. Suicidality/Homicidality: Patient denies having any suicidal or homicidal ideation intent or plan. Perceptions: Patient denies any auditory or visual hallucinations. Though content/process: There is no evidence of any delusional thought content and thought process is linear and goal-directed. [place] Memory and concentration: AOX3, grossly intact for the purposes of this session Judgment and insight: Poor, improving mildly. Assessment Depressive disorder unspecified, rule out cocaine-induced depressive disorder Opiate use disorder, currently in withdrawal Plan: -Patient continues to meet criteria for inpatient psychiatric admission for symptom stabilization and safety. Patient has signed adult voluntary form and medication consent and was placed in patient's chart. -Medications: Continue with trazodone 200 mg at bedtime for mood/insomnia. Continue with Abilify 5 mg daily for mood stabilization/mood adjunct. Continue with Pristiq 100 mg daily for mood. -beta-hCG quantitative is negative. Will repeat prior to discharge. -PRN medications for opiate withdrawal including clonidine, Zofran, dicyclomine, loperamide and Tylenol. -Will continue with Ativan to 0.5 mg when necessary for anxiety with the plan to continue to taper off. -NRT - nicotine patch - on board for discharge planning. Patient will be going to inpatient substance use rehab, [place] intake scheduled for .
[2019-05-15] MEDS: ZIPRASIDONE 20 MG VIAL IM PRN (21:35)
[2019-05-15] MEDS: traZODone HCL 100 MG TAB PO SCH (21:37)
[2019-05-15] MEDS: ARIPiprazole 5 MG TAB PO SCH (21:37)
[2019-05-16 06:47] VITALS: RESP 16
[2019-05-16] MEDS: NICOTINE 14MG/24HR PATCH TRANSDERM SCH (08:26)
[2019-05-16] MEDS: TOPIRAMATE 25 MG TAB PO SCH ×2 (08:26→22:02)
[2019-05-16] MEDS: DESVENLAFAXINE SUCCINATE 50 MG TAB.ER.24H PO SCH (08:26)
[2019-05-16] MEDS: LORazepam 0.5 MG TAB PO PRN ×2 (09:14→22:03)
[2019-05-16] MEDS: cloNIDine HCL 0.1 MG TAB PO PRN (09:14)
--- NOTE | 2019-05-16 10:16 | P.PN ---
Progress Note - Text Progress Note Date: 05/16/19 Interval History: Patient was seen wandering the hallways and was agreeable to speak with the wr iter today. She offered no overnight complaints and states that she is feeling good today. She claims that her mood has been gradually improving and she is happy with that. She states that she feels she has "come along way" with regards to her withdrawal symptoms and mood/anxiety. She states that she slept well last night on the current dose of trazodone and wants to keep it at that dose. She states that she only took clonidine once today and wants to continue weaning herself off. Patient claims that her energy level is fair in that she is going to the afternoon groups. Patient continues to state that she wants to be going to [place] rehab tomorrow after discharge. At this time patient denies any suicidal or homical ideations, intent or plan. Patient denies any auditory, visual hallucinations and denies any paranoia or delusions. Patient denies any side effects from the medications and has been compliant with meds. Mental Status Exam: General Appearance: Patient appears to be stated age is alert, directable and cooperative. Patient appears to have improving hygiene and grooming, fair eye contact. Behavior: Patient is calmly seated without any agitated behavior. Speech: Patient's speech is fluent and nonpressured. Soft tone. Mood/Affect: Mood is improving mildly, affect is congruent and constricted. Suicidality/Homicidality: Patient denies having any suicidal or homicidal ideation intent or plan. Perceptions: Patient denies any auditory or visual hallucinations. Though content/process: There is no evidence of any delusional thought content and thought process is linear and goal-directed. [place] Memory and concentration: AOX3, grossly intact for the purposes of this session Judgment and insight: Fair, improving mildly. Assessment Depressive disorder unspecified, rule out cocaine-induced depressive disorder Opiate use disorder, currently in withdrawal Plan: -Patient continues to meet criteria for inpatient psychiatric admission for symptom stabilization and safety. Patient has signed adult voluntary form and medication consent and was placed in patient's chart. -Medications: Continue with trazodone 200 mg at bedtime for mood/insomnia. Continue with Abilify 5 mg daily for mood stabilization/mood adjunct. Continue with Pristiq 100 mg daily for mood. -beta-hCG quantitative is negative. Will repeat today. -PRN medications for opiate withdrawal including clonidine, Zofran, dicyclomine, loperamide and Tylenol. -Will continue with Ativan to 0.5 mg when necessary for anxiety with the plan to continue to taper off. -NRT - nicotine patch -SW on board for discharge planning. Patient will be going to inpatient substance use rehab, [place] intake scheduled for tomorrow. Discharge tomorrow.
[2019-05-16] MEDS: traZODone HCL 100 MG TAB PO SCH (22:02)
[2019-05-16] MEDS: ARIPiprazole 5 MG TAB PO SCH (22:02)
[2019-05-17 07:04] VITALS: BP 126/65; PULSE 77; TEMP 98.8
[2019-05-17] MEDS: TOPIRAMATE 25 MG TAB PO SCH (07:55)
[2019-05-17] MEDS: NICOTINE 14MG/24HR PATCH TRANSDERM SCH (07:55)
[2019-05-17] MEDS: DESVENLAFAXINE SUCCINATE 50 MG TAB.ER.24H PO SCH (07:55)
--- NOTE | 2019-05-17 09:26 | P.DS ---
Providers Date of admission: 05/07/19 15:45 Expected date of discharge: 05/17/19 Attending physician: Iván Gant MD Consults: 05/07/19 16:13 Consult Physician Routine Consulting Provider: [place] Physician Consult Reason/Comments: H&P and medical Do you want consulting provider notified?: Yes Primary care physician: [facility] - Discharge Diagnosis(es) (1) Depressive disorder Status: Acute Priority: High (2) Cocaine use disorder Status: Acute Priority: Medium (3) Opiate dependence Status: Acute Priority: Medium Hospital Course: Admission HPI: Patient is a 33-year-old female who is currently , lives with her mother and has a history of polysubstance use and depression. Patient presented to the hospital yesterday after she claimed that she relapsed on cocaine and started feeling depressed and suicidal. Patient claimed that she was doing well after being discharged from the mental health unit on 04/27/2019 and claims that she was taking her medications every day up until approximately 3-4 days ago when she stated that she was around other people who were doing drugs and decided to use cocaine. She stated that she used approximately $20 worth at that time. She states that after that day she did not take her medications and claims to be feeling worse with regards to her mood and anxiety and became suicidal with no plan and presented to the hospital. She states that at this time she is guilty and feels that her mother is not helping her as she was requesting her to bring her Suboxone into the hospital so she can be on it on the unit however her mother is declining to do so. Patient states that she needs to go to rehab at this point and work on her sobriety. She states that she has poor sleep at night is having anxiety from opiate withdrawal and also claims to have some diarrhea and muscle pains. Patient states she has fair energy and fair appetite. Patient denies any suicidal or homicidal ideations intent or plan. At this time patient denies any auditory or visual hallucinations. Patient denies any flight of ideas racing thoughts and increased in goal directed behavior. Hospital course: Upon admission to the unit patient was initially depressed, anxious having suicidal thoughts. Patient was however directable and agreeable to commence treatment. Patient got along well with other patients on the unit and followed unit protocol. Patient was compliant with the medications and denied any side effects throughout hospital course. Patient was re-started on trazodone however was titrated up to 200 mg daily at bedtime for mood/insomnia. Patient was also restarted on Abilify 5 mg daily for mood stabilization/mood adjunct. Patient was also restarted on Pristiq 100 mg daily for mood. Patient was also placed on symptomatic withdrawal medications when needed including clonidine, Zofran, dicyclomine, loperamide and Tylenol. Patient spoke of her stressors and engaged in therapy both group and individual. Patient was also seen by medical team for history and physical exam. Patient was complaining of some stomach cramping and claimed that she was having a late menstrual cycle and requested a test (beta-hCG) which was done twice and both were negative. Throughout the course of the hospitalization patient gradually improved with regards to mood, anxiety, withdrawal symptoms, sleep and became future oriented with improved insight and judgment. On the day of discharge patient denied any suicidal or homicidal ideations intent or plan denied any auditory or visual hallucinations. Patient endorsed wanting to live for her health and her children. The patient denied any access to guns or weapons. Patient denied any paranoia and did not endorse any delusions. Patient does have a significant history of substance abuse and was counseled on abstaining from all substances including alcohol and marijuana. Patient was willing to go to inpatient rehab at this time for treatment of her substance use. Patient was also counseled on the medications and need for regular compliance and was encouraged to follow-up with their outpatient appointment for mental health and also for primary care. Prior to discharge a family meeting will be arranged by social sciences lecturer to answer any questions and ensure safety upon discharge. Mental status exam: General Appearance: Patient appears to be stated age is alert, and cooperative. Patient is in no acute distress and has fair hygiene and grooming Behavior: Patient is calmly seated without any agitated behavior. Speech: Patient's speech is fluent and nonpressured. Mood/Affect: Patient reports their mood is "better", affect is congruent and euthymic. Suicidality/Homicidality: Patient denies having any suicidal or homicidal ideation intent or plan. Perceptions: Patient denies any auditory or visual hallucinations. Though content/process: There is no evidence of any delusional thought content and thought process is linear and goal-directed. Memory and concentration: AOX3, grossly intact for the purposes of this session. Can spell "WORLD" backwards correctly. Judgment and insight: fair, improved Impression: Depressive disorder Cocaine use disorder Opiate use disorder Nicotine dependence Plan: -Continue with discharge today as patient has improved and stabilized psychiatrically and is not currently an imminent threat to herself and/or others. -Continue medications: Trazodone 200 mg nightly for mood/insomnia, Abilify 5 mg daily for mood stabilization/mood adjunct, Pristiq 100 mg daily for mood. Patient was also given a 7 day supply of clonidine for withdrawal symptoms. -Patient was counseled on the need for medication compliance and appropriate follow-up at mental health and also primary care for medical issues. Patient verbalized understanding and agreed. -Social work to arrange for and conduct family meeting to ensure safety upon discharge and answer any questions/concerns. Social work also to arrange for patients follow up appointments for psychiatric care with [facility] along with follow up with primary care provider. tire worker assisted with arrangements to have intake at [facility] on 05/17/2019. -Patient counseled on abstaining from recreational drugs and marijuana and alcohol. Was informed/educated on the adverse effects on their physical and mental health. Patient verbally agreed and understood -Patient was instructed to return to the hospital or seek immediate medical care if their psychiatric or medical systems do worsen or reoccur. Patient Condition at Discharge: Stable Plan - Discharge Summary Discharge Rx Participant: No New Discharge Prescriptions: New cloNIDine HCL [Catapres] 0.1 mg PO DAILY PRN 7 Days tab PRN Reason: Withdrawl Symptoms traZODone HCL [Desyrel] 200 mg PO HS 28 Days tab Nicotine 14Mg/24Hr Patch [Habitrol] 1 patch TRANSDERM DAILY 14 Days patch Albuterol Inhaler [Ventolin Hfa Inhaler] 2 puff INHALATION RT-QID PRN #2 puff PRN Reason: Shortness Of Breath Or Wheezing Continue ARIPiprazole [Abilify] 5 mg PO HS 28 Days tab Desvenlafaxine [Pristiq ER] 100 mg PO DAILY 28 Days tab Topiramate [Topamax] 50 mg PO BID 28 Days tab Discontinued traZODone HCL 50 mg PO HS Discharge Medication List ARIPiprazole [Abilify] 5 mg PO HS 28 Days tab 05/17/19 [Rx] Albuterol Inhaler [Ventolin Hfa Inhaler] 2 puff INHALATION RT-QID PRN #2 puff 05/17/19 [Rx] Desvenlafaxine [Pristiq ER] 100 mg PO DAILY 28 Days tab 05/17/19 [Rx] Nicotine 14Mg/24Hr Patch [Habitrol] 1 patch TRANSDERM DAILY 14 Days patch 05/17/19 [Rx] Topiramate [Topamax] 50 mg PO BID 28 Days tab 05/17/19 [Rx] cloNIDine HCL [Catapres] 0.1 mg PO DAILY PRN 7 Days tab 05/17/19 [Rx] traZODone HCL [Desyrel] 200 mg PO HS 28 Days tab 05/17/19 [Rx] Follow up Appointment(s)/Referral(s): [facility] [Outside] - 05/17/19 11:30 am [facility] [Primary Care Provider] - 1-2 days Patient Instructions/Handouts: How to Stop Smoking (DC), Cocaine Abuse (DC), Depression (DC) Activity/Diet/Wound Care/Special Instructions: Activity and diet as tolerated. No guns or weapons in the home. No alcohol or street drugs not prescribed by physician. Take all medications as prescribed, and attend all follow up appointments as scheduled. If in need of medication re fills, please go to your outpatient psychiatric provider, or to your primary care physician. If in crisis, please call , or go to the nearest ER for an evaluation. Discharge Disposition: HOME SELF-CARE
== END 2019-05-17 10:09 | disposition home or self-care (01) | DRG 881 ==
LOC: EC 12:15 → 3MHU 15:45
PROVIDERS: ADMIT Psychiatry & Neurology Psychiatry; ATTEND Psychiatry & Neurology Psychiatry
DX: F32.9 Major depressive disorder, single episode, unspecified (principal); F11.23 Opioid dependence with withdrawal; J45.21 Mild intermittent asthma with (acute) exacerbation; R45.851 Suicidal ideations; F06.4 Anxiety disorder due to known physiological condition; F14.10 Cocaine abuse, uncomplicated; F17.200 Nicotine dependence, unspecified, uncomplicated; G40.909 Epilepsy, unspecified, not intractable, without status epilepticus; G47.00 Insomnia, unspecified; Z79.899 Other long term (current) drug therapy; F19.10 Other psychoactive substance abuse, uncomplicated; Z56.0 Unemployment, unspecified; Z81.3 Family history of other psychoactive substance abuse and dependence; E66.3 Overweight; Z68.37 Body mass index [BMI] 37.0-37.9, adult
CPT/HCPCS: 80053; 80061; 80306; 81001; 81025; 82075; 83036; 84443; 84702; 85025; 99285

== ENCOUNTER 2019-06-13 19:29 | Emergency (ER) | payer OTHER ==
--- NOTE | 2019-06-13 20:09 | ED ---
General Adult HPI - General Chief complaint: Psychiatric Symptoms Stated complaint: Mental Health Time Seen by Provider: 06/13/19 19:36 Source: patient, RN notes reviewed Mode of arrival: ambulatory Limitations: no limitations - History of Present Illness Initial comments: 33-year-old female with a past medical history of asthma presents to the emergency department for a chief complaint of suicidal thoughts. Patient states she has felt suicidal for the past day. When I inquired why patient will suicidal she states that "my life sucks." She refuses to give details. She does deny a plan of suicide. Patient is a history of anxiety, bipolar disorder, depression.Patient has no other complaints at this time including shortness of breath, chest pain, abdominal pain, nausea or vomiting, headache, or visual changes. - Related Data Previous Rx's Medication Instructions Recorded ARIPiprazole [Abilify] 5 mg PO HS 28 Days tab 05/17/19 Albuterol Inhaler [Ventolin Hfa 2 puff INHALATION RT-QID PRN #2 05/17/19 Inhaler] puff Desvenlafaxine [Pristiq ER] 100 mg PO DAILY 28 Days tab 05/17/19 Nicotine 14Mg/24Hr Patch [Habitrol] 1 patch TRANSDERM DAILY 14 Days 05/17/19 patch Topiramate [Topamax] 50 mg PO BID 28 Days tab 05/17/19 cloNIDine HCL [Catapres] 0.1 mg PO DAILY PRN 7 Days tab 05/17/19 traZODone HCL [Desyrel] 200 mg PO HS 28 Days tab 05/17/19 Allergies Allergy/AdvReac Type Severity Reaction Status Date / Time No Known Allergies Allergy Verified 06/13/19 19:34 Review of Systems ROS Statement: Those systems with pertinent positive or pertinent negative responses have been documented in the HPI. ROS Other: All systems not noted in ROS Statement are negative. Past Medical History Past Medical History: Asthma, Seizure Disorder Additional Past Medical History / Comment(s): last seizure two years ago. History of Any Multi-Drug Resistant Organisms: None Reported Past Surgical History: Section Past Anesthesia/Blood Transfusion Reactions: No Reported Reaction Past Psychological History: Anxiety, Bipolar, Depression Smoking Status: Current every day smoker Past Alcohol Use History: None Reported Past Drug Use History: Cocaine, Marijuana - Past Family History Father Family Medical History: No Reported History Mother Family Medical History: No Reported History General Exam Limitations: no limitations General appearance: alert, in no apparent distress Head exam: Present: atraumatic, normocephalic, normal inspection Eye exam: Present: normal appearance, PERRL, EOMI. Absent: scleral icterus, conjunctival injection, periorbital swelling ENT exam: Present: normal exam, mucous membranes moist Neck exam: Present: normal inspection, full ROM. Absent: tenderness, meningismus, lymphadenopathy Respiratory exam: Present: normal lung sounds bilaterally. Absent: respiratory distress, wheezes, rales, rhonchi, stridor Cardiovascular Exam: Present: regular rate, normal rhythm, normal heart sounds. Absent: systolic murmur, diastolic murmur, rubs, gallop, clicks Neurological exam: Present: alert Psychiatric exam: Present: suicidal ideation. Absent: homicidal ideation Course Vital Signs 06/13/19 19:30 Temperature 97.5 F L Pulse Rate 94 Respiratory 16 Rate Blood Pressure 116/80 O2 Sat by Pulse 94 L Oximetry Medical Decision Making - Medical Decision Making Patient was evaluated by EPS. Apparently patient only became suicidal when she found out that selling her bridge card was a felony. Patient denies plan of suicide. EPS nurse Britney recommends discharge home given the patient's lack of plan and successful safety plan. Safety plan was given to patient. Patient will be discharged home. She'll follow up with primary care. Disposition Clinical Impression: Situational depression Disposition: HOME SELF-CARE Condition: Good Instructions (If sedation given, give patient instructions): Depression (ED) Additional Instructions: Please follow up with primary care in 1-2 days. Please return to the emergency department if you have any worsening symptoms. Is patient prescribed a controlled substance at d/c from ED?: No Referrals: [facility] [Primary Care Provider] - 1-2 days Time of Disposition: 21:01
[2019-06-13 21:22] VITALS: BP 144/99; PULSE 99; RESP 18; TEMP 97.7
[2019-06-13 21:22] LABS: Cocaine Screen,Urine Detected (NotDetected); Phencyclidine Screen,Urine Not Detected (NotDetected); Urn Cannabinoid Scrn Not Detected (NotDetected)
[2019-06-13 21:23] LABS: Amphetamine Screen,Urine Detected (NotDetected); Barbiturate Screen,Urine Not Detected (NotDetected); Benzodiazepines Screen,Urine Not Detected (NotDetected); Methadone Screen, Urine Not Detected (NotDetected); Opiate Screen,Urine Not Detected (NotDetected); Oxycodone Screen, Urine Not Detected (NotDetected); Tricyclic Antidepressant,Urine Not Detected (NotDetected)
== END 2019-06-13 21:21 | disposition home or self-care (01) ==
LOC: EC 19:29
DX: F43.21 Adjustment disorder with depressed mood (principal); R45.851 Suicidal ideations; F17.200 Nicotine dependence, unspecified, uncomplicated; Z86.59 Personal history of other mental and behavioral disorders
CPT/HCPCS: 80306; 82075; 99285

== ENCOUNTER 2020-03-17 18:43 | Emergency (ER) | payer OTHER ==
[2020-03-17 19:00] VITALS: BP 131/74; PULSE 81; RESP 18; TEMP 98.6
--- NOTE | 2020-03-17 19:27 | ED ---
General Adult HPI - General Chief complaint: Seizure Stated complaint: Revisit Seizure Time Seen by Provider: 03/17/20 18:45 Source: patient, EMS, RN notes reviewed, old records reviewed Mode of arrival: EMS Limitations: no limitations - History of Present Illness Initial comments: This is a 34-year-old female who presents emergency department stating that she thinks she had another one of her stress seizures earlier today. Patient states it's not epileptic seizures they're usually induced by stress but she had no stress today. Patient states she was here earlier today in the emergency department and was released to go home. Patient states she went home and had another stress seizures and the parents called EMS. Patient states she does not want to come to the emergency room and states she knows what they are and she's already going to follow-up with neurology. Patient states she used to do cocaine but she no longer does. Patient states she does not want any workup done whatsoever she would like to be discharged home currently because she is feeling fine and she is alert and oriented 3 and has no complaints. - Related Data Home Medications Medication Instructions Recorded Confirmed ARIPiprazole [Abilify] 10 mg PO HS 06/13/19 06/13/19 cloNIDine HCL [Catapres] 0.1 mg PO DAILY 06/13/19 06/13/19 cloNIDine HCL [Catapres] 0.2 mg PO HS 06/13/19 06/13/19 Previous Rx's Medication Instructions Recorded Albuterol Inhaler (Mhu) [Ventolin 2 puff INHALATION RT-QID PRN #2 05/17/19 Hfa Inhaler (Mhu)] puff Desvenlafaxine [Pristiq ER] 100 mg PO DAILY 28 Days tab 05/17/19 Topiramate [Topamax] 50 mg PO BID 28 Days tab 05/17/19 traZODone HCL [Desyrel] 200 mg PO HS 28 Days tab 05/17/19 Allergies Allergy/AdvReac Type Severity Reaction Status Date / Time No Known Allergies Allergy Verified 03/17/20 12:21 Review of Systems ROS Statement: Those systems with pertinent positive or pertinent negative responses have been documented in the HPI. ROS Other: All systems not noted in ROS Statement are negative. Past Medical History Past Medical History: Asthma, Seizure Disorder Additional Past Medical History / Comment(s): last seizure two years ago. History of Any Multi-Drug Resistant Organisms: None Reported Past Surgical History: Section Past Anesthesia/Blood Transfusion Reactions: No Reported Reaction Past Psychological History: Anxiety, Bipolar, Depression Past Alcohol Use History: None Reported Past Drug Use History: Cocaine, Marijuana - Past Family History Father Family Medical History: No Reported History Mother Family Medical History: No Reported History General Exam - General Exam Comments Initial Comments: GENERAL: Patient is well-developed and well-nourished. Patient is nontoxic and well- hydrated and is in no acute distress. ENT: Neck is soft and supple. No significant lymphadenopathy is noted. Oropharynx is clear. Moist mucous membranes. Neck has full range of motion without eliciting any pain. EYES: The sclera were anicteric and conjunctiva were pink and moist. Extraocular movements were intact and pupils were equal round and reactive to light. Eyelids were unremarkable. PULMONARY: Unlabored respirations. Good breath sounds bilaterally. No audible rales rhonchi or wheezing was noted. CARDIOVASCULAR: There is a regular rate and rhythm without any murmurs gallops or rubs. ABDOMEN: Soft and nontender with normal bowel sounds. SKIN: Skin is clear with no lesions or rashes and otherwise unremarkable. NEUROLOGIC: Patient is alert and oriented x3. Cranial nerves II through XII are grossly intact. Motor and sensory are also intact. Normal speech, volume and content. Symmetrical smile. MUSCULOSKELETAL: Normal extremities with adequate strength and full range of motion. No lower extremity swelling or edema. No calf tenderness. LYMPHATICS: No significant lymphadenopathy is noted PSYCHIATRIC: Normal psychiatric evaluation. Limitations: no limitations Course Vital Signs 03/17/20 18:45 Temperature 98.6 F Pulse Rate 81 Respiratory 18 Rate Blood Pressure 131/74 O2 Sat by Pulse 92 L Oximetry Disposition Clinical Impression: Pseudoseizure Disposition: HOME SELF-CARE Condition: Good Instructions (If sedation given, give patient instructions): Recurrent Seizures in Adults (ED) Is patient prescribed a controlled substance at d/c from ED?: No Referrals: [facility] [Primary Care Provider] - 1-2 days Time of Disposition: 19:24
== END 2020-03-17 19:32 | disposition home or self-care (01) ==
LOC: EC 18:43
DX: G40.909 Epilepsy, unspecified, not intractable, without status epilepticus (principal); F31.9 Bipolar disorder, unspecified; F41.9 Anxiety disorder, unspecified; Z79.899 Other long term (current) drug therapy
CPT/HCPCS: 99284

== ENCOUNTER 2020-10-31 11:22 | Emergency (ER) | payer OTHER ==
[2020-10-31 11:45] VITALS: BP 116/72; PULSE 93; RESP 20; TEMP 98.8
--- NOTE | 2020-10-31 11:46 | ED ---
General Adult HPI - General Source: patient, RN notes reviewed Mode of arrival: ambulatory Limitations: no limitations <Davie Rdo - Last Filed: 10/31/20 11:44> <Ronel Weeks - Last Filed: 10/31/20 13:53> - General Stated complaint: Covid, GUILLERMO Time Seen by Provider: 10/31/20 11:43 - History of Present Illness Initial comments: 35-year-old female presents emergency Department chief complaint of shortness of breath, possible Covid exposure patient states her friend tested positive. Patient states that she does have asthma, is currently. Patient does have some shortness with this. She has been using her inhaler. Her nausea and diarrhea constipation no reported fever. (Davie Rod) She denies any chest pain, no abdominal pain. (Ronel Weeks) - Related Data Home Medications Medication Instructions Recorded Confirmed ARIPiprazole [Abilify] 10 mg PO HS 06/13/19 10/31/20 cloNIDine HCL [Catapres] 0.1 mg PO DAILY 06/13/19 10/31/20 cloNIDine HCL [Catapres] 0.2 mg PO HS 06/13/19 10/31/20 Buprenorphine HCl/Naloxone HCl 1 film SUBLINGUAL BID 10/31/20 10/31/20 [Suboxone 8 mg-2 mg Sl Film] QUEtiapine [SEROquel] 50 mg PO HS 10/31/20 10/31/20 Previous Rx's Medication Instructions Recorded Albuterol Inhaler (Mhu) [Ventolin 2 puff INHALATION RT-QID PRN #2 05/17/19 Hfa Inhaler (Mhu)] puff Desvenlafaxine [Pristiq ER] 100 mg PO DAILY 28 Days tab 05/17/19 Topiramate [Topamax] 50 mg PO BID 28 Days tab 05/17/19 Allergies Allergy/AdvReac Type Severity Reaction Status Date / Time No Known Allergies Allergy Verified 10/31/20 11:45 Review of Systems ROS Other: All systems not noted in ROS Statement are negative. <Davie Rod - Last Filed: 10/31/20 11:44> ROS Other: All systems not noted in ROS Statement are negative. <Ronel Weeks - Last Filed: 10/31/20 13:53> ROS Statement: Those systems with pertinent positive or pertinent negative responses have been documented in the HPI. Past Medical History Past Medical History: Asthma, Seizure Disorder Additional Past Medical History / Comment(s): last seizure two years ago. History of Any Multi-Drug Resistant Organisms: None Reported Past Surgical History: Section Past Anesthesia/Blood Transfusion Reactions: No Reported Reaction Past Psychological History: Anxiety, Bipolar, Depression Past Alcohol Use History: None Reported Past Drug Use History: Cocaine, Marijuana - Past Family History Father Family Medical History: No Reported History Mother Family Medical History: No Reported History <Davie Rod - Last Filed: 10/31/20 11:44> General Exam General appearance: alert, in no apparent distress Head exam: Present: atraumatic, normocephalic, normal inspection Eye exam: Present: normal appearance, PERRL, EOMI. Absent: scleral icterus, conjunctival injection, periorbital swelling ENT exam: Present: normal exam, normal oropharynx, mucous membranes moist Neck exam: Present: normal inspection, full ROM. Absent: tenderness, meningismus, lymphadenopathy Respiratory exam: Present: wheezes. Absent: normal lung sounds bilaterally, respiratory distress, rales, rhonchi, stridor Cardiovascular Exam: Present: regular rate, normal rhythm, normal heart sounds. Absent: systolic murmur, diastolic murmur, rubs, gallop, clicks <Davie Rod - Last Filed: 10/31/20 11:44> <Ronel Weeks - Last Filed: 10/31/20 13:53> - General Exam Comments Initial Comments: GENERAL: Patient is well-developed and well-nourished. Patient is nontoxic and in no acute distress. HEAD: Atraumatic, normocephalic. EYES: Pupils equal round and reactive to light, extraocular movements intact, sclera anicteric, conjunctiva are normal. Eyelids were unremarkable. ENT: Nares patent, oropharynx clear without exudates. Moist mucous membranes. NECK: Normal range of motion, supple without lymphadenopathy or JVD. LUNGS: Unlabored respirations. Breath sounds clear to auscultation bilaterally and equal. No wheezes rales or rhonchi. HEART: Regular rate and rhythm without murmurs, rubs or gallops. ABDOMEN: Soft, nontender, normoactive bowel sounds. No guarding, no rebound. No masses appreciated. : Deferred MUSCULOSKELETAL: Normal extremities with adequate strength and normal range of motion, no pitting or edema. No clubbing or cyanosis. NEUROLOGICAL: Patient is alert and oriented x 3. Motor and sensory are also intact. Cranial nerves II through XII grossly intact. Symmetrical smile. Normal speech, normal gait. PSYCH: Normal mood, normal affect. SKIN: Warm, Dry, normal turgor, no rashes or lesions noted. (Ronel Weeks) Course Vital Signs 10/31/20 11:43 Temperature 98.8 F Pulse Rate 93 Respiratory 20 Rate Blood Pressure 116/72 O2 Sat by Pulse 95 Oximetry Medical Decision Making <Davie Rod - Last Filed: 10/31/20 11:44> <Ronel Weeks - Last Filed: 10/31/20 13:53> - Medical Decision Making I counseled the patient for smoking cessation for greater than 3 minutes (Davie Rod) Patient is a 35-year-old female here with possible exposure Covid, slight cough and congestion of starting yesterday. She is requesting a Covid test. Her rapid tested come back negative. Her exam is unremarkable, vital signs are stable. Discussed with the risk of be a viral illness. Continue to treat her symptoms with an inhaler at home. She is stable for discharge and she is in agreement with this plan of care. she can follow up with her PCP. (Ronel Veras) - Lab Data Lab Results 10/31/20 Range/Units 11:47 Coronavirus (PCR) Not Detected (Not Detectd) Disposition <Davie Rod - Last Filed: 10/31/20 11:44> Is patient prescribed a controlled substance at d/c from ED?: No Time of Disposition: 13:43 <Ronel Weeks - Last Filed: 10/31/20 13:53> Clinical Impression: Exposure to COVID-19 virus, Viral illness Disposition: HOME SELF-CARE Condition: Stable Instructions (If sedation given, give patient instructions): Normal Exam (ED) Additional Instructions: Please return to the Emergency Department if symptoms worsen or any other concerns. Covid Rapid test is negative today. Follow-up with PCP as needed. Referrals: [facility] [Primary Care Provider] - 1-2 days
== END 2020-10-31 13:59 | disposition home or self-care (01) ==
LOC: EC 11:22
DX: B34.9 Viral infection, unspecified (principal); J45.909 Unspecified asthma, uncomplicated; G40.909 Epilepsy, unspecified, not intractable, without status epilepticus; F41.9 Anxiety disorder, unspecified; F32.9 Major depressive disorder, single episode, unspecified; F12.90 Cannabis use, unspecified, uncomplicated; Z20.822 Contact with and (suspected) exposure to COVID-19
CPT/HCPCS: 87635; 99284

== ENCOUNTER → 2020-11-10 | Outpatient (CLI) | payer OTHER ==
--- NOTE | 2020-11-10 16:41 | XR ---
Left hip HISTORY: Hip pain, remote history of trauma 2 views of the left hip Bone mineralization, joint spaces and alignment are maintained. IMPRESSION: No fracture or dislocation.
--- NOTE | 2020-11-10 16:46 | XR ---
Left knee HISTORY: Pain, remote history of trauma 3 views of left knee Bone mineralization, joint spaces and alignment are maintained. Minimal marginal spurring in the medi al compartment suggests some osteoarthritic change. Super patellar increased density is consistent wi th joint effusion. IMPRESSION: No acute fracture or dislocation. Knee MRI may be of benefit.
--- NOTE | 2020-11-10 16:48 | XR ---
Left ankle and left foot HISTORY: Pain, remote history of trauma 3 views the left ankle, 3 views of left leg submitted Soft tissue swelling is present. Bone mineralization, joint spaces and alignment are maintained. Ther e is a plantar calcaneal spur. IMPRESSION: No fracture or dislocation.
== END | disposition home or self-care (01) ==
LOC: RADXRMAIN 14:16
PROVIDERS: ATTEND Nurse Practitioner Family
DX: M25.552 Pain in left hip (principal); M25.562 Pain in left knee; M25.572 Pain in left ankle and joints of left foot
CPT/HCPCS: 73502

== ENCOUNTER 2020-11-17 14:15 | Emergency (ER) | payer OTHER ==
[2020-11-17 14:19] VITALS: BP 140/79; PULSE 97; RESP 20; TEMP 97.9
[2020-11-17] MEDS ORDERED: predniSONE 50 MG TAB PO STA (14:28)
[2020-11-17] MEDS ORDERED: ACETAMINOPHEN TAB 325 MG TAB PO STA (14:28)
[2020-11-17] MEDS ORDERED: IBUPROFEN 600 MG TAB PO STA (14:28)
[2020-11-17] MEDS ORDERED: guaiFENesin-DM 600/30MG 1 EACH TAB.ER.12H PO STA (14:28)
--- NOTE | 2020-11-17 14:44 | ED ---
General Adult HPI - General Chief complaint: Headache Stated complaint: Headache,sore throat,Body aches Time Seen by Provider: 11/17/20 14:20 Source: patient Mode of arrival: ambulatory Limitations: no limitations - History of Present Illness Initial comments: 35 year-old female patient presents to the emergency department for evaluation of headache, sore throat, and fatigue. Reports she has a cough with some mild shortness of breath. She is a smoker. States she has asthma, she has been using her inhaler. She denies any fever or chills. States she does have body aches. States she was exposed to COVID a couple of weeks ago but tested negative a couple days later. Patient denies any recent rash, chest pain, abdominal pain, nausea, vomiting, diarrhea, constipation, back pain, numbness, tingling, dizziness, weakness, hematuria, dysuria, urinary urgency, urinary frequency, visual changes, or any other complaints. States that she did just start a new school schedule and a couple of new psych medications and symptoms could be related to this. - Related Data Home Medications Medication Instructions Recorded Confirmed ARIPiprazole [Abilify] 10 mg PO HS 06/13/19 10/31/20 cloNIDine HCL [Catapres] 0.1 mg PO DAILY 06/13/19 10/31/20 cloNIDine HCL [Catapres] 0.2 mg PO HS 06/13/19 10/31/20 Buprenorphine HCl/Naloxone HCl 1 film SUBLINGUAL BID 10/31/20 10/31/20 [Suboxone 8 mg-2 mg Sl Film] QUEtiapine [SEROquel] 50 mg PO HS 10/31/20 10/31/20 Previous Rx's Medication Instructions Recorded Albuterol Inhaler (Mhu) [Ventolin 2 puff INHALATION RT-QID PRN #2 05/17/19 Hfa Inhaler (Mhu)] puff Desvenlafaxine [Pristiq ER] 100 mg PO DAILY 28 Days tab 05/17/19 Topiramate [Topamax] 50 mg PO BID 28 Days tab 05/17/19 Ibuprofen [Motrin] 600 mg PO Q8HR PRN #30 tab 11/17/20 guaiFENesin-DM 600/30MG [Mucinex 2 each PO Q12HR PRN #20 tab.er.12h 11/17/20 Dm] predniSONE 50 mg PO DAILY #5 tablet 11/17/20 Allergies Allergy/AdvReac Type Severity Reaction Status Date / Time No Known Allergies Allergy Verified 11/17/20 14:19 Review of Systems ROS Statement: Those systems with pertinent positive or pertinent negative responses have been documented in the HPI. ROS Other: All systems not noted in ROS Statement are negative. Past Medical History Past Medical History: Asthma, Seizure Disorder Additional Past Medical History / Comment(s): last seizure two years ago. History of Any Multi-Drug Resistant Organisms: None Reported Past Surgical History: Section Past Anesthesia/Blood Transfusion Reactions: No Reported Reaction Past Psychological History: Anxiety, Bipolar, Depression Smoking Status: Current every day smoker Past Alcohol Use History: None Reported Past Drug Use History: Cocaine, Marijuana - Past Family History Father Family Medical History: No Reported History Mother Family Medical History: No Reported History General Exam Limitations: no limitations General appearance: alert, in no apparent distress, other (This is a well- developed, well-nourished adult female patient in no acute distress. Vital signs upon presentation are temperature 97.9F, pulse 97, respirations 20, blood pressure 140/79, pulse ox 93% on room air.) Eye exam: Present: normal appearance, PERRL, EOMI. Absent: scleral icterus, conjunctival injection, periorbital swelling ENT exam: Present: normal exam, mucous membranes moist. Absent: normal oropharynx (pharyngeal erythema) Respiratory exam: Present: normal lung sounds bilaterally. Absent: respiratory distress, wheezes, rales, rhonchi, stridor Cardiovascular Exam: Present: regular rate, normal rhythm, normal heart sounds. Absent: systolic murmur, diastolic murmur, rubs, gallop, clicks GI/Abdominal exam: Present: soft, normal bowel sounds. Absent: distended, tenderness, guarding, rebound, rigid Neurological exam: Present: alert, oriented X3, CN II-XII intact Psychiatric exam: Present: normal affect, normal mood Skin exam: Present: warm, dry, intact, normal color. Absent: rash Course Vital Signs 11/17/20 14:16 Temperature 97.9 F Pulse Rate 97 Respiratory 20 Rate Blood Pressure 140/79 O2 Sat by Pulse 93 L Oximetry Medical Decision Making - Medical Decision Making 35-year-old female patient presented to the emergency department today for evaluation of headache, sore throat, cough. Physical examination reveals clear equal lung sounds. There is some pharyngeal erythema. Chest x-ray was negative. COVID-19 was negative. Patient is given prednisone and Mucinex. She does have a Pro Air inhaler at home she is urged to use this. She is instructed to follow-up through primary care physician for recheck in 1-2 days. Return parameters were discussed in detail. He verbalizes understanding and agrees with this plan. I attending is Dr. Rodriguez. - Lab Data Lab Results 11/17/20 Range/Units 14:25 Influenza Type A (PCR) Not Detected (Not Detectd) Influenza Type B (PCR) Not Detected (Not Detectd) RSV (PCR) Not Detected (Not Detectd) SARS-CoV-2 (PCR) Not Detected (Not Detectd) Disposition Clinical Impression: Viral syndrome Disposition: HOME SELF-CARE Condition: Good Instructions (If sedation given, give patient instructions): Viral Syndrome (ED) Additional Instructions: We will call with your COVID results. Increase fluids. Take medications as directed. Take tylenol and motrin for aches and any fever. Continue using your inhaler. Follow up with the primary care physician for recheck in 1-2 days. Return for any new, worsening, or concerning symptoms. Prescriptions: Ibuprofen [Motrin] 600 mg PO Q8HR PRN #30 tab PRN Reason: Pain guaiFENesin-DM 600/30MG [Mucinex Dm] 2 each PO Q12HR PRN #20 tab.er.12h PRN Reason: Cough predniSONE 50 mg PO DAILY #5 tablet Is patient prescribed a controlled substance at d/c from ED?: No Referrals: [facility] [Primary Care Provider] - 1-2 days Time of Disposition: 14:59
--- NOTE | 2020-11-17 14:53 | XR ---
EXAMINATION TYPE: XR chest 1V DATE OF EXAM: 11/17/2020 COMPARISON: Chest x-ray January 18, 2013 HISTORY: Shortness of breath for 4 days. Cough and wheeze. TECHNIQUE: Single frontal view of the chest is obtained. FINDINGS: There is no new suspicious focal air space opacity, pleural effusion, or pneumothorax seen . The cardiac silhouette size remains within normal limits. The osseous structures are intact. IMPRESSION: No acute process. No significant change from prior.
== END 2020-11-17 15:08 | disposition home or self-care (01) ==
LOC: EC 14:15
DX: B34.9 Viral infection, unspecified (principal); Z20.822 Contact with and (suspected) exposure to COVID-19
CPT/HCPCS: 87636; 71045; 99284; J7512

== ENCOUNTER → 2021-01-23 | Outpatient (CLI) | payer OTHER ==
--- NOTE | 2021-01-23 15:06 | MR ---
EXAMINATION TYPE: MR knee LT wo con DATE OF EXAM: 01/23/2021 COMPARISON: None HISTORY: Left knee pain, locking, and swelling for 2 months. TECHNIQUE: Multiplanar, multisequence imaging of the left knee is performed without IV contrast. FINDINGS: MEDIAL MENISCUS: Anterior and posterior horns are intact without tear. LATERAL MENISCUS: Anterior and posterior horns are intact without tear. CRUCIATE LIGAMENTS: Ruptured ACL. PCL is intact. COLLATERAL LIGAMENTS: The medial collateral ligament and lateral collateral ligament complex are inta ct and unremarkable. EXTENSOR MECHANISM: Visualized quadriceps and patellar tendons are intact. EFFUSION: No significant suprapatellar joint effusion. POPLITEAL CYST: No popliteal/leija cyst. TRICOMPARTMENT SPACES: Intact CARTILAGE: Intact BONE MARROW SIGNAL: No focal abnormal marrow signal is appreciated. OTHER: No additional significant abnormality is appreciated. IMPRESSION: Ruptured ACL.
== END | disposition home or self-care (01) ==
LOC: RADMRIMAIN 08:51
PROVIDERS: ATTEND Internal Medicine
DX: M23.612 Other spontaneous disruption of anterior cruciate ligament of left knee (principal)

== ENCOUNTER 2021-03-08 12:32 | Observation (INO) | payer OTHER ==
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
[2021-03-08 13:15] LABS: ALT 25 U/L (4-34); AST 37 U/L (14-36); African American GFR (CKD) >90 (>60 ml/min/1.73 sqM); Alcohol <10 mg/dL; Alkaline Phosphatase 94 U/L (38-126); Anion Gap 8 mmol/L; Blood Urea Nitrogen 13 mg/dL (7-17); Calcium 8.9 mg/dL (8.4-10.2); Carbon Dioxide 22 mmol/L (22-30); Chloride 109 mmol/L (98-107); Glucose 120 mg/dL (74-99); Non-African American GFR(CKD) >90 (>60 ml/min/1.73 sqM); Potassium 3.4 mmol/L (3.5-5.1); Sodium 139 mmol/L (137-145); Total Bilirubin 0.7 mg/dL (0.2-1.3); Total Protein 6.7 g/dL (6.3-8.2)
[2021-03-08 13:33] LABS: Partial Thromboplastin Time 22.7 sec (22.0-30.0); Prothrombin Time 10.7 sec (9.0-12.0)
[2021-03-08 13:48] LABS: Basophils % (A) 0 %; Eosinophils # (A) 0.3 k/uL (0-0.7); Eosinophils % (A) 3 %; HCT 37.2 % (34.0-46.0); HGB 12.5 gm/dL (11.4-16.0); Lymphocytes # (A) 1.5 k/uL (1.0-4.8); Lymphocytes % (A) 13 %; MCH 28.5 pg (25.0-35.0); MCHC 33.6 g/dL (31.0-37.0); Mean Platelet Volume 7.8; Monocytes # (A) 0.6 k/uL (0-1.0); Monocytes % (A) 5 %; Neutrophils # (A) 9.3 k/uL (1.3-7.7); Neutrophils % (A) 77 %; Platelet Count 239 k/uL (150-450); RBC 4.37 m/uL (3.80-5.40); RDW 13.6 % (11.5-15.5); WBC 12.1 k/uL (3.8-10.6)
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
[2021-03-08 15:26] LABS: Appearance,Urine Clear (Clear); Bacteria,Urine Occasional /hpf; Bilirubin,Urine Negative (Negative); Blood,Urine Moderate (Negative); Color,Urine Yellow; Glucose,Urine (UA) Negative (Negative); Hyaline Casts,Urine 1 /lpf (0-2); Ketones,Urine 1+ (Negative); Leukocyte Esterase,Urine Small (Negative); Mucus,Urine Few /hpf; Nitrite,Urine Negative (Negative); PH, Urine 5.5 (5.0-8.0); Protein,Urine 1+ (Negative); RBC,Urine 86 /hpf (0-5); Squamous Epithelial Cell,Urine 11 /hpf (0-4); Urobilinogen,Urine <2.0 mg/dL (<2.0); WBC,Urine 6 /hpf (0-5)
[2021-03-08 15:32] LABS: Amphetamine Screen,Urine Detected (NotDetected); Barbiturate Screen,Urine Not Detected (NotDetected); Benzodiazepines Screen,Urine Not Detected (NotDetected); Cocaine Screen,Urine Detected (NotDetected); Methadone Screen, Urine Not Detected (NotDetected); Opiate Screen,Urine Not Detected (NotDetected); Oxycodone Screen, Urine Not Detected (NotDetected); Phencyclidine Screen,Urine Not Detected (NotDetected); Tricyclic Antidepressant,Urine Not Detected (NotDetected); Urn Cannabinoid Scrn Not Detected (NotDetected)
[2021-03-08 15:35] LABS: Specific Gravity,Urine >1.050 (1.001-1.035)
[2021-03-08] MEDS ORDERED: ACETAMINOPHEN TAB 325 MG TAB PO PRN (17:20)
[2021-03-08] MEDS ORDERED: NALOXONE 0.4 MG/ML 1 ML VIAL IV PRN (17:20)
[2021-03-08] MEDS ORDERED: IPRATROPIUM-ALBUTEROL 3 ML NEB INHALATION STA (18:10)
[2021-03-08] MEDS: SODIUM CHLORIDE 0.9% 1,000 ML IV SCH (18:12)
[2021-03-09 07:35] VITALS: BP 106/67; PULSE 76; RESP 16; TEMP 97.6
[2021-03-09] MEDS: SODIUM CHLORIDE 0.9% 1,000 ML IV SCH (07:57)
[2021-03-09] MEDS ORDERED: IPRATROPIUM-ALBUTEROL 3 ML NEB INHALATION PRN (08:03)
[2021-03-09] MEDS ORDERED: IBUPROFEN 600 MG TAB PO PRN (08:05)
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
[2021-03-09] MEDS ORDERED: POTASSIUM CHLORIDE ER 20 MEQ TAB.ER PO STA (14:18)
[2021-03-09] MEDS ORDERED: BUDESONIDE 0.5 MG/2 ML NEBU INHALATION SCH (20:00)
[2021-03-09] MEDS ORDERED: QUEtiapine 50 MG TAB PO SCH (21:00)
[2021-03-09] MEDS ORDERED: TOPIRAMATE 25 MG TAB PO SCH (21:00)
[2021-03-10] MEDS ORDERED: DESVENLAFAXINE SUCCINATE 50 MG TAB.ER.24H PO SCH (09:00)
== END 2021-03-09 14:36 | disposition home or self-care (01) ==
LOC: EC 12:32 → 6NMEDSUR 17:21
PROVIDERS: ADMIT Family Medicine; ATTEND Family Medicine
DX: F14.10 Cocaine abuse, uncomplicated (principal); G47.10 Hypersomnia, unspecified; Y92.410 Unspecified street and highway as the place of occurrence of the external cause; V89.2XXA Person injured in unspecified motor-vehicle accident, traffic, initial encounter; F19.10 Other psychoactive substance abuse, uncomplicated; F15.10 Other stimulant abuse, uncomplicated; B37.0 Candidal stomatitis; B37.2 Candidiasis of skin and nail; F31.9 Bipolar disorder, unspecified; F41.9 Anxiety disorder, unspecified; F17.200 Nicotine dependence, unspecified, uncomplicated; M47.817 Spondylosis without myelopathy or radiculopathy, lumbosacral region; G40.909 Epilepsy, unspecified, not intractable, without status epilepticus; J45.21 Mild intermittent asthma with (acute) exacerbation; E66.9 Obesity, unspecified; Z68.38 Body mass index [BMI] 38.0-38.9, adult; J40 Bronchitis, not specified as acute or chronic; F12.90 Cannabis use, unspecified, uncomplicated; G47.00 Insomnia, unspecified; R21 Rash and other nonspecific skin eruption; Z59.0 Homelessness; Z79.899 Other long term (current) drug therapy; Z71.51 Drug abuse counseling and surveillance of drug abuser; Z81.3 Family history of other psychoactive substance abuse and dependence
CPT/HCPCS: 99285; 36415; 93005; 86900; 86901; 80053; 84484; 85025; 85610; 85730; 86850; 81001; 81025; 80306; 80320; 72170; 71045; 72125; 70450; 71260; 74177; G0378 ×2; Q9967

== ENCOUNTER → 2021-04-16 | Outpatient (CLI) | payer OTHER | END | disposition home or self-care (01) | LOC: LABWHC1 15:51 | PROVIDERS: ATTEND Internal Medicine | DX: Z20.822 Contact with and (suspected) exposure to COVID-19 (principal) | CPT/HCPCS: U0003; C9803; U0005 ==

== ENCOUNTER 2021-06-02 05:58 | Inpatient (IN) | payer MEDICAID, OTHER ==
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
[2021-06-02 11:55] LABS: Urine Alcohol Negative (Negative); Urine Barbiturate Positive (Negative); Urine Cocaine Positive (Negative); Urine Methadone Negative (Negative); Urine Opiates Negative (Negative); Urine Phencyclidine Negative (Negative)
[2021-06-02] MEDS ORDERED: LORazepam 2 MG/ML INJ IM STA (12:37)
[2021-06-02] MEDS ORDERED: NICOTINE 21MG/24HR PATCH TRANSDERM STA (14:15)
[2021-06-02] MEDS ORDERED: ALBUTEROL INHALER 60 PUFF/8 GM INHALER (MHU) INHALATION PRN (14:34)
[2021-06-02] MEDS ORDERED: MAGNESIUM HYDROXIDE 2,400 MG/10 ML CUP PO PRN (14:35)
[2021-06-02] MEDS ORDERED: MAG HYDROX/AL HYDROX/SIMETH 30 ML CUP PO PRN (14:35)
[2021-06-02] MEDS ORDERED: LORazepam 2 MG/ML INJ IM PRN (14:37)
[2021-06-02] MEDS ORDERED: HALOPERIDOL LACTATE 5 MG/ML 1 ML VIAL IM PRN (14:38)
[2021-06-02] MEDS ORDERED: DICYCLOMINE 10 MG CAP PO PRN (15:42)
[2021-06-02] MEDS ORDERED: cloNIDine HCL 0.1 MG TAB PO PRN (15:42)
[2021-06-02] MEDS ORDERED: LOPERAMIDE 2 MG CAP PO PRN (15:44)
[2021-06-02] MEDS ORDERED: QUEtiapine 50 MG TAB PO STA (15:56)
[2021-06-02] MEDS: TOPIRAMATE 25 MG TAB PO SCH (20:52)
[2021-06-02] MEDS: LORazepam 1 MG TAB PO PRN (20:53)
[2021-06-02] MEDS: ACETAMINOPHEN TAB 325 MG TAB PO PRN (20:53)
[2021-06-02] MEDS ORDERED: traZODone HCL 100 MG TAB PO SCH (21:00)
[2021-06-02] MEDS ORDERED: QUEtiapine 100 MG TAB PO SCH (21:00)
[2021-06-02] MEDS: haloperidoL 5 MG TAB PO PRN (21:20)
--- NOTE | 2021-06-02 22:02 | P.PN ---
Progress Note - Text Progress Note Date: 06/02/21 The patient was sedated and couldn't be evaluated. Will attempt again tomorrow.
[2021-06-03] MEDS: NICOTINE 21MG/24HR PATCH TRANSDERM SCH (09:26)
[2021-06-03] MEDS: DESVENLAFAXINE SUCCINATE 50 MG TAB.ER.24H PO SCH (09:26)
[2021-06-03] MEDS: TOPIRAMATE 25 MG TAB PO SCH ×2 (09:27→20:49)
--- NOTE | 2021-06-03 11:42 | P.HP ---
Psychiatric H&P - . H&P Date: 06/03/21 History & Physical: Allergies Allergy/AdvReac Type Severity Reaction Status Date / Time No Known Allergies Allergy Verified 06/02/21 08:41 Vital Signs Temp 97.6 F 06/02/21 15:32 Pulse 96 06/02/21 15:32 Resp 16 06/02/21 15:32 BP 148/86 06/02/21 15:32 Pulse Ox 97 06/02/21 15:32 Intake & Output 06/02/21 06/03/21 06/03/21 18:59 06:59 18:59 Weight 114.816 kg Laboratory Last Values Urine Opiates Screen Negative (Negative) 06/02/21 08:24 Urine Methadone Screen Negative (Negative) 06/02/21 08:24 Ur Propoxyphene Screen Negative (Negative) 06/02/21 08:24 Urine Barbiturates Positive (Negative) A 06/02/21 08:24 Ur Phencyclidine Scrn Negative (Negative) 06/02/21 08:24 Ur Amphetamine Screen Positive (Negative) A 06/02/21 08:24 U Benzodiazepines Scrn Positive (Negative) A 06/02/21 08:24 Urine Cocaine Screen Positive (Negative) A 06/02/21 08:24 U Cannabinoids Screen Negative (Negative) 06/02/21 08:24 Urine Alcohol Negative (Negative) 06/02/21 08:24 Coronavirus (PCR) Not Detected (Not Detectd) 06/02/21 12:24 06/03/21 11:32 IDENTIFYING DATA: Patient is a 35-year-old female who is currently , lives with her mother but also recently homeless and has a history of polysubstance use and depression HPI: Patient presented to the hospital yesterday as a transfer from [facility] on a petition by patient's mother. According to ER report patient had a gun in the house and made several threats and police were called and patient was brought to the hospital. As per petition by patient's mother states that patient "came to my house and took her father's gun from where it is hidden under the dresser and was walking around with it and stating she has had a hit list and was going to kill 3 people. Stated she was going to kill self. Her friend calling me and stating "something is very wrong with her daughter". Patient was admitted involuntarily to the mental health floor. Patient UDS was positive for barbiturates and amphetamines benzodiazepines and cocaine. Patient was seen today early by journalists and other writers however patient was lying in bed and appeared to be disheveled and lethargic and was uncooperative with the journalists and other writers and did not want to get out of the bed to speak with journalists and other writers in the office. She asked journalists and other writers to come back later on in the day. Patient was seen once again by journalists and other writers at the bedside and again was uncooperative and did not want to leave her bed. She appears to have very poor insight and poor hygiene and grooming. She states that she was trying to go to [facility] however "they won't give me my meds". She was very vague and guarded and evasive about why she was in the hospital. She admitted to using cocaine and methamphetamine. She accused somebody of "spiking my drugs with math". She states that her sleep has been poor and she had a "nervous breakdown". She also claims that she's been dealing with a lot of stress however did not explain what kind of stress she was talking about. She did explain that she is feeling depressed at this time and anxious. Patient denies any suicidal or homicidal ideations intent or plan. At this time patient denies any auditory or visual hallucinations. Patient denies any flight of ideas racing thoughts and increased in goal directed behavior. PAST PSYCHIATRIC HISTORY: Patient states that she has major depressive disorder and polysubstance abuse, currently using cocaine and UDS was positive for cocaine, benzodiazepines, amphetamines, barbiturates. Patient is on Suboxone daily. Patient was last discharged from the mental health unit in [address] [facility] follow-up. Patient denies any history of suicide attempts. PMH: Chronic pain ALLERGIES: as per EMR CHEMICAL DEPENDENCY HISTORY: as per hpi FAMILY PSYCHIATRIC/SUBSTANCE USE HISTORY: She states that there is significant polysubstance abuse in her family. SOCIAL HISTORY: Patient is currently and currently resides with her mother at [facility] however states that recently she is homeless. She states that she has 2 children one 13 years old and the other 19 years old. Patient is unemployed at this time and completed up till the 11th grade of education. MENTAL STATUS EXAM: General Appearance: Patient appears to be overweight, stated age is lethargic, uncooperative and guarded/evasive. Poor hygiene and poor grooming. Poor eye contact Behavior: Patient is calmly seated without any agitated behavior. uncooperative Speech: Patient's speech is fluent and nonpressured. Soft tone Mood/Affect: Patient reports their mood is depressed, affect is congruent and constricted. Suicidality/Homicidality: Patient denies having any suicidal or homicidal ideation intent or plan. Perceptions: Patient denies any auditory or visual hallucinations. Though content/process: concrete, vague and gaurded. evasive Memory and concentration: AOX3, grossly intact for the purposes of this session. Can spell "WORLD" backwards Judgment and insight: Poor/superficial STRENGTHS/WEAKNESSES: strength is that patient had a good support system, weaknesses that patient has polysubstance abuse history and chronic mental illness. INTELLECT: Below average IMPRESSIONS: Major Depressive disorder without psychotic features Opiate use disorder, currently on agonist therapy Cocaine use disorder Benzodiazepine abuse Nicotine dependence PLAN: -Patient is admitted under involuntary status to MHU for stabilization of psychiatric symptoms and safety. Patient did not signed adult voluntary form or medication consent and is placed in patient's chart. A second clinical certificate will be completed today and filed to the courts and will await deferral and full court hearing date. -Medications : Will start patient on Seroquel 50 mg at bedtime for mood/insomnia. Will restart patient on Pristiq 100 mg daily for mood. -Suboxone will be restarted. -Ativan and Haldol PRN for anxiety. -Patient was counselled on substance abuse and desired to cut back on use however was fairly vague and guarded -Patient was informed of the risks, benefits and side effects of the medication and patient verbally consented to taking the medications. Patient signed med consent form and was placed in chart. -NRT - nicotine patch - on board for discharge planning. Encouraged patient to participate in groups and milieu. We'll attempt to speak to patient about possibly going to rehab or other substance use treatment options. 06/03/21 11:41
[2021-06-03] MEDS ORDERED: QUEtiapine 50 MG TAB PO SCH (21:00)
[2021-06-03] MEDS: LORazepam 1 MG TAB PO PRN (21:17)
--- NOTE | 2021-06-03 22:29 | P.CONS ---
History of Present Illness - Reason for Consult Consult date: 06/03/21 - History of Present Illness The patient is a 35-year-old female with a PMH of polysubstance abuse, seizure disorder, and asthma who was brought in under police custody for allegedly displaying homicidal behavior. The patient was admitted to the mental health unit where she was seen and evaluated with the mental health unit RN Justine. She reports several social difficulties including homelessness and substance abuse. She reports a significant history of polysubstance abuse with last use roughly 2 weeks ago of heroin and methamphetamines. She reports feeling fatigued at the time of interview as well as having some blisters on her feet due to excessive walking with poorly fitting shoes. She denied additional complaints. She denied fever, chills, cough. She denied nausea, vomiting, abdominal pain, diarrhea. Laboratory evaluation in the emergency room with urine toxicology was positive for amphetamines, cocaine, and barbiturates. Review of systems: Pertinent positives and negatives as discussed in HPI, a complete review of systems was performed and all other systems are negative. Physical examination: General: non toxic, no distress, appears at stated age, obese Derm: Left great toe blister noted without surrounding erythema or warmth, no unusual ecchymoses, warm, dry Head: atraumatic, normocephalic, symmetric Eyes: EOMI, no lid lag, anicteric sclera, pupils equal round reactive to light ENT: Nose and ears atraumatic, no thrush, no pharyngeal erythema Neck: No thyromegaly, no cervical lymphadenopathy, trachea midline, supple Mouth: no lip lesion, mucus membranes moist Cardiovascular: S1S2 reg, no murmur, positive posterior tibial pulse bilateral, no edema, capillary refill less than 2 seconds Lungs: CTA bilateral, no rhonchi, no rales , no accessory muscle use Abdominal: soft, nontender to palpation, no guarding, no appreciable organomegaly, normal bowel sounds Ext: no gross muscle atrophy, muscle strength 5 out of 5 in all 4 extremities grossly, no contractures, Neuro: CN II-XI grossly intact, light touch intact all 4 extremities, finger to nose within normal limits, Psych: Alert, oriented, appropriate affect Assessment/plan Polysubstance abuse -Strongly advised on importance of cessation Seizure disorder -Continue with Topamax Asthma -Continue with albuterol when necessary Homicidal ideation -As per psychiatry Thank you for allowing us to participate in the care of this patient. We will follow peripherally. Do not hesitate to contact us with questions. Someone can be reached from the [facility] hospitalist group at all hours of the day at [phone]. Past Medical History Past Medical History: Asthma, Seizure Disorder Additional Past Medical History / Comment(s): last seizure two years ago. History of Any Multi-Drug Resistant Organisms: None Reported Past Surgical History: Section Past Anesthesia/Blood Transfusion Reactions: No Reported Reaction Past Psychological History: Anxiety, Bipolar, Depression Smoking Status: Current every day smoker Past Alcohol Use History: Daily, Heavy Past Drug Use History: Cocaine, Marijuana - Past Family History Father Family Medical History: No Reported History Mother Family Medical History: COPD Medications and Allergies Home Medications Medication Instructions Recorded Confirmed Type Desvenlafaxine [Pristiq ER] 100 mg PO DAILY 28 Days tab 05/17/19 06/02/21 Rx Topiramate [Topamax] 50 mg PO BID 28 Days tab 05/17/19 06/02/21 Rx QUEtiapine [SEROquel] 50 - 100 mg PO DIRECTED 10/31/20 06/02/21 History Albuterol Sulfate [Proair Hfa] 1 puff INHALATION [id number] PRN 03/08/21 06/02/21 History Buprenorphine HCl/Naloxone HCl 1 film SL BID 06/02/21 06/02/21 History [Suboxone 8 mg-2 mg Sl Film] Allergies Allergy/AdvReac Type Severity Reaction Status Date / Time No Known Allergies Allergy Verified 06/02/21 08:41 Physical Exam Vitals: Vital Signs Resp BP 06/03/21 20:52 18 167/79
[2021-06-04] MEDS: DESVENLAFAXINE SUCCINATE 50 MG TAB.ER.24H PO SCH (09:38)
[2021-06-04] MEDS: TOPIRAMATE 25 MG TAB PO SCH ×2 (09:38→20:51)
[2021-06-04] MEDS: NICOTINE 21MG/24HR PATCH TRANSDERM SCH (09:39)
[2021-06-04] MEDS: hydrOXYzine pamoate 25 MG CAP PO SCH ×2 (10:54→20:51)
[2021-06-04] MEDS: LORazepam 1 MG TAB PO PRN ×2 (10:55→20:53)
[2021-06-04] MEDS: haloperidoL 5 MG TAB PO PRN (10:55)
--- NOTE | 2021-06-04 11:16 | P.PN ---
Progress Note - Text Progress Note Date: 06/04/21 Interval History: Patient was seen today for psychiatric follow up and was seen today by aligner typewriter. The patient continues to appear to be disheveled in appearance. She was complaining of going through opiate withdrawal and states that she normally gets her Suboxone as an outpatient every week and does not have any to bring in the hospital or any at home. She claims that she is having some upset stomach and feeling very anxious today. She asked several times if she is going to long-term or halfway because she came into the hospital and was brought in by the police. Patient was denying having a gun and making threats at home. She states that "my parents will lie about anything to get me into treatment". She states that she wants to quit using drugs however appear to be fairly superficial about this. She states that she is feeling depressed and was tearful at times. She asked several times when she can be seen by the business attorney. She was agreeable to continue on with her medications. She states that she had a very difficult time sleeping last night. Appears to have poor insight and judgment. At this time patient denies any suicidal or homical ideations, intent or plan. Patient denies any auditory, visual hallucinations and denies any paranoia or delusions. Patient denies any side effects from the medications and has been compliant with meds. Mental Status Exam: General Appearance: Patient appears to be overweight, stated age is more cooperative today. Alert and guarded/evasive. Poor hygiene and poor grooming. Behavior: Patient is calmly seated without any agitated behavior. Cooperative today. Appears to be anxious Speech: Patient's speech is fluent and nonpressured. Mood/Affect: Patient reports their mood is down and anxious, affect is congruent and tearful and distressed Suicidality/Homicidality: Patient denies having any suicidal or homicidal ideation intent or plan. Perceptions: Patient denies any auditory or visual hallucinations. Though content/process: concrete, vague and gaurded. evasive. vague Memory and concentration: AOX3, grossly intact for the purposes of this session Judgment and insight: Poor/superficial Assessment Major Depressive disorder without psychotic features Opiate use disorder, currently on agonist therapy Cocaine use disorder Benzodiazepine abuse Nicotine dependence Plan: -Patient continues to meet criteria for inpatient psychiatric admission for symptom stabilization and safety. Patient has not signed adult voluntary form and medication consent and was placed in patient's chart. -Medications: Increase Seroquel to 100 mg daily at bedtime for mood/insomnia. Started Vistaril 25 mg twice a day for anxiety. Continue with Pristiq 100 mg daily for mood/anxiety. -Clonidine and Bentyl when necessary for opiate withdrawal. -When necessary Ativan and Haldol for agitation/aggression. -NRT - nicotine patch -SW on board for discharge planning. Encouraged the patient to participate in milieu. Currently awaiting deferral with business attorney and court date. Patient is currently awaiting deferral and court hearing date.She claims that she is interested in going to [facility] upon discharge
[2021-06-04] MEDS: QUEtiapine 100 MG TAB PO SCH (20:51)
[2021-06-05] MEDS: NICOTINE 21MG/24HR PATCH TRANSDERM SCH (09:02)
[2021-06-05] MEDS: hydrOXYzine pamoate 25 MG CAP PO SCH ×2 (09:03→19:51)
[2021-06-05] MEDS: TOPIRAMATE 25 MG TAB PO SCH ×2 (09:03→19:52)
[2021-06-05] MEDS: DESVENLAFAXINE SUCCINATE 50 MG TAB.ER.24H PO SCH (09:03)
[2021-06-05] MEDS: cloNIDine HCL 0.1 MG TAB PO PRN ×2 (09:04→19:54)
--- NOTE | 2021-06-05 09:33 | P.PN ---
Progress Note - Text Progress Note Date: 06/05/21 Interval History: Patient was seen today for psychiatric follow up and was seen today by securities underwriter. She was complaining of going through opiate withdrawal. Net Fisher reassured patient that she does have Bentyl and clonidine as needed for her withdrawal symptoms and patient states that she has not taking Bentyl yet however has found the clonidine to be helping a bit. She claims that she does not want to go to [facility] any longer and wants to go to [facility] in [place]. She states that she has been going to some groups however was fairly vague about what she is learning. She claims that she is slept better last night. She has a fair appetite. She claims that she is irritable at times however her mood has been improving. She claims that she does have anxiety at this time. At this time patient denies any suicidal or homical ideations, intent or plan. Patient denies any auditory, visual hallucinations and denies any paranoia or delusions. Patient denies any side effects from the medications and has been compliant with meds. Mental Status Exam: General Appearance: Patient appears to be overweight, stated age is more cooperative today. Alert and guarded/evasive. improving hygiene and poor grooming. Behavior: Patient is calmly seated without any agitated behavior. more Cooperative today. We irritable Speech: Patient's speech is fluent and nonpressured. Mood/Affect: Patient reports their mood is, being mildly and is anxious, affect is congruent Suicidality/Homicidality: Patient denies having any suicidal or homicidal ideation intent or plan. Perceptions: Patient denies any auditory or visual hallucinations. Though content/process: concrete, vague and gaurded. vague, improving mildly Memory and concentration: AOX3, grossly intact for the purposes of this session Judgment and insight: Poor/superficial, improving mildly Assessment Major Depressive disorder without psychotic features Opiate use disorder, currently on agonist therapy Cocaine use disorder Benzodiazepine abuse Nicotine dependence Plan: -Patient continues to meet criteria for inpatient psychiatric admission for symptom stabilization and safety. Patient has not signed adult voluntary form and medication consent and was placed in patient's chart. -Medications: Seroquel to 100 mg daily at bedtime for mood/insomnia. Vistaril 25 mg twice a day for anxiety. Continue with Pristiq 100 mg daily for mood/anxiety. -Clonidine and Bentyl when necessary for opiate withdrawal. -When necessary Ativan and Haldol for agitation/aggression. -NRT - nicotine patch -SW on board for discharge planning. Encouraged the patient to participate in milieu. Currently awaiting deferral with estate attorney and court date. Patient is currently awaiting deferral and court hearing date. She claims that she is interested in now going to [facility] for rehab.
[2021-06-05] MEDS: QUEtiapine 100 MG TAB PO SCH (19:52)
[2021-06-05] MEDS: LORazepam 1 MG TAB PO PRN (19:53)
[2021-06-06 06:56] VITALS: RESP 18
[2021-06-06] MEDS: DESVENLAFAXINE SUCCINATE 50 MG TAB.ER.24H PO SCH (08:37)
[2021-06-06] MEDS: NICOTINE 21MG/24HR PATCH TRANSDERM SCH (08:37)
[2021-06-06] MEDS: TOPIRAMATE 25 MG TAB PO SCH ×2 (08:40→21:22)
[2021-06-06] MEDS: hydrOXYzine pamoate 25 MG CAP PO SCH ×2 (08:40→21:22)
[2021-06-06] MEDS: ACETAMINOPHEN TAB 325 MG TAB PO PRN (08:41)
[2021-06-06] MEDS: cloNIDine HCL 0.1 MG TAB PO PRN (08:43)
[2021-06-06] MEDS: LORazepam 1 MG TAB PO PRN ×2 (10:50→21:22)
[2021-06-06] MEDS: DICYCLOMINE 20 MG TAB PO PRN ×2 (11:14→17:26)
--- NOTE | 2021-06-06 17:44 | PN ---
PROGRESS NOTE DATE OF SERVICE: 06/06/2021. CHIEF COMPLAINT: The patient was depressed. She had threatened to use her father's gun to shoot herself. She has significant substance use issues. INTERVAL HISTORY: Patient has been doing fair. She had a quiet day yesterday, mostly she stayed in her room. She comes out a little bit. She does not interact too much with others. She did not attend groups yesterday. She has a lot of physical complaints, especially GI complaints which she says relates to opioid withdrawal. She has been on Suboxone, though does not have availability of her medications on the unit. She said she slept fair last night. Today again she has mostly been in her room. She continues with similar complaints especially GI distress. She has been taking fluids. Her mood continues to be down. She has been talking about possibly going to [place] for substance abuse inpatient treatment. She reports that her mood continues to be down mainly relating to physical symptoms she is having. She appears to tolerate her psychotropic medications. MENTAL STATUS: Patient gave fair eye contact at best. Psychomotor activity was slowed. Speech was monotone. She answered a few questions with brief responses. She did not say much. Her affect was flat, mood depressed. She was significantly distressed. There was no indication for thought disorder. She was denying thoughts of harm at the time of the interview. She was oriented and alert. ASSESSMENT: I will continue the current diagnosis and treatment plan. I will continue psychotropic medications the same. I reviewed withdrawal issues with the patient. I also reviewed indications for her medications. There might be consideration for titrating up on Seroquel though at this point, we will leave medicines the same and continue to monitor especially for withdrawal related symptoms. We will focus on stabilization and discharge planning. MMODL / IJN: [id number] /
[2021-06-06] MEDS: QUEtiapine 100 MG TAB PO SCH (21:22)
[2021-06-07] MEDS: hydrOXYzine pamoate 25 MG CAP PO SCH ×2 (09:55→20:36)
[2021-06-07] MEDS: NICOTINE 21MG/24HR PATCH TRANSDERM SCH (09:55)
[2021-06-07] MEDS: ACETAMINOPHEN TAB 325 MG TAB PO PRN (09:56)
[2021-06-07] MEDS: cloNIDine HCL 0.1 MG TAB PO PRN (09:56)
[2021-06-07] MEDS: LORazepam 1 MG TAB PO PRN (09:56)
[2021-06-07] MEDS: TOPIRAMATE 25 MG TAB PO SCH ×2 (09:57→20:36)
[2021-06-07] MEDS: DESVENLAFAXINE SUCCINATE 50 MG TAB.ER.24H PO SCH (09:57)
[2021-06-07] MEDS: DICYCLOMINE 20 MG TAB PO PRN (10:50)
[2021-06-07] MEDS: QUEtiapine 50 MG TAB PO SCH ×4 (14:51→20:41)
--- NOTE | 2021-06-07 17:48 | PN ---
PROGRESS NOTE DATE OF SERVICE: 06/07/2021. CHIEF COMPLAINT: The patient was depressed. She had threatened to use her father's gun to shoot herself and others. She has significant substance use issues. INTERVAL HISTORY: Patient has been doing fair overall. She has not shown too much change. She had a quiet day yesterday. Mostly she was in her room. She does not attend groups. She had a lot of GI complaints yesterday, though that seemed to settle down as the day went on. She said she did not sleep well last night. She continues to have quite a bit of anxiety, given that she has not been able to get Suboxone. She had an accident yesterday where she tripped over a exercise lane with no signs of injury. Today she says she is doing mat on the floor and landed on her left knee. She had some knee pain without any other marginally better though continues to have some GI distress. Her appetite has been down. She said that her plan is to call [facility] tomorrow to see about bed availability. She tolerates her psychotropic medications. She wondered about increasing the dose of her Seroquel. When I reviewed her admission issues, the patient was quite clear that she did not hold a gun, nor did she make any threats to harm herself or others. At the same time, she acknowledged that she was delusional in her thinking. MENTAL STATUS EXAM: Patient walked into the room quite slowly. She sat in a slumped posture. She did not give much for eye contact. Her voice was monotone and soft. She answered questions with brief responses. She did not say a lot. She was not spontaneous or interactive. Her affect was flat, her mood depressed. She was moderately distressed. There was no indication for thought disorder. She voiced no thoughts of harm. Cognition was clear. ASSESSMENT: I will continue the current diagnosis and treatment plan. I had an extensive discussion with the patient regarding withdrawal issues and management. We talked about nonpharmacologic things the patient can do to help reduce withdrawal symptoms and better manage her functioning. I will increase Seroquel to 50 mg twice a day and 150 mg at bedtime. She will continue Pristiq 100 mg a day and Topamax 50 mg twice a day. She has the plan of contacting [facility] the first thing tomorrow to look for bed availability. We will focus on stabilization and discharge planning. JUAN DANIEL / IJN: [id number] / POOJA
[2021-06-08 06:44] VITALS: BP 105/57; PULSE 64; TEMP 97.3
[2021-06-08] MEDS: TOPIRAMATE 25 MG TAB PO SCH (08:00)
[2021-06-08] MEDS: NICOTINE 21MG/24HR PATCH TRANSDERM SCH (08:00)
[2021-06-08] MEDS: QUEtiapine 50 MG TAB PO SCH (08:00)
[2021-06-08] MEDS: hydrOXYzine pamoate 25 MG CAP PO SCH (08:00)
[2021-06-08] MEDS: DESVENLAFAXINE SUCCINATE 50 MG TAB.ER.24H PO SCH (08:01)
--- NOTE | 2021-06-08 22:27 | DS ---
DISCHARGE SUMMARY DATE OF SERVICE: 06/08/2021. DATE OF ADMISSION: 06/02/2021. DATE OF DISCHARGE: 06/08/2021 ADMISSION AND DISCHARGE DIAGNOSES: 1. Major depressive disorder without psychotic features. 2. Opioid use disorder. 3. Cocaine use disorder. 4. Benzodiazepine abuse. HISTORY OF PRESENTING ILLNESS: The patient is a 35-year-old female. She presented to the ED with a report indicating that she had made threats to harm herself and others. She was petitioned by her mother. The petition indicated that she had taken a gun that was her father's gun. It was hidden under a bed. She had brandished the gun and made statements that she was going to kill 3 people and kill herself. Her urine drug screen was positive for barbiturates, amphetamines, benzodiazepines and cocaine. For the patient's part, she denied that she ever had handled a weapon, though she also indicated that at that time she was "delusional." She acknowledged that she has had significant substance use issues. She has been struggling with depression. Psychotropic medications she was on prior to admission included Pristiq 100 mg a day and Seroquel 50 mg a day. She was also on Suboxone. Patient was admitted for further evaluation. PAST MEDICAL HISTORY AND PHYSICAL EXAM: Please refer to medical consultation for details. MENTAL STATUS EXAM: The patient presented in a very withdrawn manner and seemed lethargic. She was minimally cooperative and presented in a guarded, evasiveness way. Hygiene and grooming were poor. Speech was fluent. She was depressed. She had a constricted affect. She was denying thoughts of harm to self or others at the time of the interview. She was not reporting any symptoms of thought disorder. She was oriented and alert. COURSE OF HOSPITALIZATION: The patient was admitted for comprehensive medical, psychiatric and psychosocial evaluation. We engaged the patient in individual and group therapeutic activities. She was continued on outpatient medications, including Pristiq 100 mg a day and Seroquel 50 mg a day. It is noted that early on the patient isolated herself. She spent much time in her room lying in bed. She had a lot of physical complaints, especially GI complaints. She attributed much of that to the fact that she was not able to continue on her Suboxone, given that she did not have a supply of the medication at the time of admission. She noted that a prescription was available to her at the pharmacy, though she was not able to get to the pharmacy to actually pick it up. She did not socialize much with others. She did not attend groups. As the hospitalization progressed, the patient did show overall improvement. She was able to attend some groups. She seemed to be positive with her interactions. She made contact with [facility] and was able to set up an admission process for [place] on the day of discharge. Given that that got into place, it seemed to be a significant improvement for her. Her mood brightened considerably. She had a much better outlook. She was able to initiate most of the discharge planning. It is noteworthy that we titrated up on her Seroquel, where she received 50 mg twice a day and 150 mg at bedtime. She felt that that helped in a significant way. She said she felt much less anxious and restless in the daytime and also that she was sleeping better at nighttime. CONDITION AT DISCHARGE: Patient was stable. Her mood was significantly improved. She was voicing no thoughts of harm to self or others. She tolerated her psychotropic medications. RECOMMENDATIONS AND FOLLOWUP: Discharge medications include Seroquel 50 mg twice a day, 150 mg at bedtime, and Pristiq 100 mg a day. In addition, she is on Topamax 50 mg twice a day and anticipates restarting her Suboxone once she is discharged. Patient is discharged. She will be going to [place] for an intake evaluation on this day. MMKAIL / PING: [id number] /
== END 2021-06-08 14:00 | disposition home or self-care (01) | DRG 881 ==
LOC: EC 05:58 → 3MHU 14:26
PROVIDERS: ADMIT Psychiatry & Neurology Psychiatry; ATTEND Psychiatry & Neurology Psychiatry
DX: F32.9 Major depressive disorder, single episode, unspecified (principal); F11.23 Opioid dependence with withdrawal; R45.850 Homicidal ideations; G40.909 Epilepsy, unspecified, not intractable, without status epilepticus; F14.10 Cocaine abuse, uncomplicated; F13.10 Sedative, hypnotic or anxiolytic abuse, uncomplicated; Z20.822 Contact with and (suspected) exposure to COVID-19; F15.90 Other stimulant use, unspecified, uncomplicated; F41.9 Anxiety disorder, unspecified; G89.29 Other chronic pain; J45.909 Unspecified asthma, uncomplicated; G47.00 Insomnia, unspecified; M25.569 Pain in unspecified knee; E66.9 Obesity, unspecified; Z68.35 Body mass index [BMI] 35.0-35.9, adult; F17.210 Nicotine dependence, cigarettes, uncomplicated; Z71.6 Tobacco abuse counseling; Z79.899 Other long term (current) drug therapy; Z98.891 History of uterine scar from previous surgery; Z56.0 Unemployment, unspecified; Z59.00 Homelessness unspecified; Z71.51 Drug abuse counseling and surveillance of drug abuser; Z81.4 Family history of other substance abuse and dependence; Z82.5 Family history of asthma and other chronic lower respiratory diseases
CPT/HCPCS: 80306; 82075; 87635; 96372; 99285

== ENCOUNTER 2022-07-22 13:31 | Emergency (ER) | payer OTHER ==
--- NOTE | 2022-07-22 14:49 | ED ---
General Adult HPI - General Source: family, RN notes reviewed Mode of arrival: ambulatory Limitations: no limitations <Davie Rod - Last Filed: 07/22/22 14:48> <Val Raphael - Last Filed: 07/22/22 23:40> - General Chief complaint: Skin/Abscess/Foreign Body Stated complaint: cellulitis Time Seen by Provider: 07/22/22 14:42 - History of Present Illness Initial comments: This a 36-year-old female presents emergency Department with chief complaint of leg pain and leg swelling. Patient states both legs are swollen, painful and red. Patient was placed on antibiotics by her PCP but states that the antibi otics are not helping she is unsure what the antibiotics were called. Patient has no history DVT or PE. Patient states that she is short of breath because of her asthma denies any pain currently in her chest. Patient's RN ultrasound of her lower extremities. Denies any trauma. States that her legs are very tight feeling, very painful to touch (Davie Rod) Quick note reviewed. Additional history provided by patient. She notes bilateral leg swelling since 07/09/2022. She notes the swelling started in her feet has has worsened and has noticed swelling in her ankles and calfs. She denie CP, palpitations, SOB, cardiac or pulmonary history. She does smoke cigarettes, denies oral contraceptive use, recent long travel, hx of blood clots. (Val Raphael) - Related Data Home Medications Medication Instructions Recorded Confirmed Cholecalciferol [Vitamin D3 (10 10 mcg PO DAILY 07/22/22 07/22/22 Mcg = 400 Iu)] Desvenlafaxine [Pristiq ER] 100 mg PO DIRECTED 07/22/22 07/22/22 Effexor(Unknown Dose) 1 tab PO DIRECTED 07/22/22 07/22/22 Ferrous Sulfate [Iron] 325 mg PO DAILY 07/22/22 07/22/22 Montelukast Sodium [Singulair] 10 mg PO DIRECTED 07/22/22 07/22/22 Topiramate [Topamax] 50 mg PO DIRECTED 07/22/22 07/22/22 hydrOXYzine pamoate [Vistaril] 50 mg PO DIRECTED 07/22/22 07/22/22 Previous Rx's Medication Instructions Recorded Furosemide [Lasix] 40 mg PO DAILY 30 Days #30 tablet 07/22/22 Allergies Allergy/AdvReac Type Severity Reaction Status Date / Time lorazepam [From Ativan] AdvReac Hallucinati Verified 07/22/22 18:02 ons Review of Systems ROS Other: All systems not noted in ROS Statement are negative. <LeecyndeeDavie Hinson - Last Filed: 07/22/22 14:48> ROS Other: All systems not noted in ROS Statement are negative. <Val Raphael - Last Filed: 07/22/22 23:40> ROS Statement: Those systems with pertinent positive or pertinent negative responses have been documented in the HPI. Past Medical History Past Medical History: Asthma, Seizure Disorder Additional Past Medical History / Comment(s): last seizure two years ago. History of Any Multi-Drug Resistant Organisms: None Reported Past Surgical History: Section Past Anesthesia/Blood Transfusion Reactions: No Reported Reaction Past Psychological History: Anxiety, Bipolar, Depression Smoking Status: Current every day smoker Past Alcohol Use History: Daily, Heavy Past Drug Use History: Cocaine, Marijuana - Past Family History Father Family Medical History: No Reported History Mother Family Medical History: COPD <ViolaDavie Hinson - Last Filed: 07/22/22 14:48> General Exam Limitations: no limitations <ViolaDavie Hinson - Last Filed: 07/22/22 14:48> General appearance: alert, in no apparent distress Head exam: Present: atraumatic, normocephalic, normal inspection Eye exam: Present: normal appearance, PERRL, EOMI. Absent: scleral icterus, conjunctival injection, periorbital swelling ENT exam: Present: normal exam, mucous membranes moist Neck exam: Present: normal inspection. Absent: tenderness, meningismus, lymphadenopathy Respiratory exam: Present: normal lung sounds bilaterally, other (tachypneic). Absent: respiratory distress, wheezes, rales, rhonchi, stridor Cardiovascular Exam: Present: regular rate, normal rhythm, normal heart sounds. Absent: systolic murmur, diastolic murmur, rubs, gallop, clicks GI/Abdominal exam: Present: soft, normal bowel sounds. Absent: distended, tenderness, guarding, rebound, rigid Extremities exam: Present: normal inspection, full ROM, normal capillary refill, pedal edema (2+), calf tenderness. Absent: tenderness, joint swelling Back exam: Present: normal inspection Neurological exam: Present: alert, oriented X3, CN II-XII intact Psychiatric exam: Present: normal affect, normal mood Skin exam: Present: warm, dry, intact, normal color. Absent: rash <Val Raphael - Last Filed: 07/22/22 23:40> Course Vital Signs 07/22/22 07/22/22 13:58 18:14 Temperature 98.0 F 98.6 F Pulse Rate 120 H 84 Respiratory 26 H 18 Rate Blood Pressure 146/70 136/63 O2 Sat by Pulse 96 94 L Oximetry Medical Decision Making - Lab Data Result diagrams: 07/22/22 15:10 07/22/22 15:10 <Val Raphael - Last Filed: 07/22/22 23:40> - Medical Decision Making Was pt. sent in by a medical professional or institution? @ -Self Did you speak to anyone other than the patient for history? @ -Patient Did you review nursing and triage notes? @ -I reviewed nursing triage notes Were old charts reviewed? @ -No Differential Diagnosis? @ -cellulitis, CHF, DVT EKG interpreted by me (3pts min.)? @ -[none] X-rays interpreted by me (1pt min.)? @ -[none] CT interpreted by me (1pt min.)? @ -[none] U/S interpreted by me (1pt. min.)? @ -US doppler bilateral extremities negative for DVT What testing was considered but not performed? (CT, X-rays, U/S, labs)? Why? @ meds were considered but not given? Why? @ -[none] Did you discuss the management of the patient with other professionals? @ -I discussed the case with Dr. Wu, [facility] who agrees with the plan for discharge Did you reconcile home meds? @ -[none] Was smoking cessation discussed for >3mins.? @ -[none] Was critical care preformed (if so, how long)? @ -[none] Were there social determinants of health that impacted care today? How? (Homelessness, low income, unemployed, alcoholism, drug addiction, transportation, low edu. Level, literacy, decrease access to med. care, group home, rehab)? @ -[Homelessness, low income, unemployed, alcoholism, drug addiction, transportation, low edu. Level, literacy, decrease access to med. care, group home, rehab?] Was there de-escalation of care discussed even if they declined? (Discuss DNR or withdrawal of care, Hospice)? @ -[Discuss DNR or withdrawal of care, Hospice?] What co-morbidities impacted this encounter? (DM, HTN, Smoking, COPD, CAD, Cancer, CVA, Hep., AIDS, mental health diagnosis, sleep apnea, morbid obesity)? @ -[DM, HTN, Smoking, COPD, CAD, Cancer, CVA, Hep., AIDS, mental health diagnosis, sleep apnea, morbid obesity?] Was patient admitted / discharged? @ -discharged in stable condition with recommend close follow up with PCP Undiagnosed new problem with uncertain prognosis? @ -[none] Drug Therapy requiring intensive monitoring for toxicity (Heparin, Nitro, Insulin, Cardizem)? @ -[none] Were any procedures done? @ -[none] Diagnosis/symptom? @ -Bilateral leg swelling Acute, or Chronic, or Acute on Chronic? @ -acute Uncomplicated (without systemic symptoms) or Complicated (systemic symptoms)? @ -uncomplicated Side effects of treatment? @ -frequent urination Exacerbation, Progression, or Severe Exacerbation] @ -[no] Poses a threat to life or bodily function? @ -mild likelihood (Val Raphael) - Lab Data Lab Results 07/22/22 07/22/22 07/22/22 Range/Units 15:10 15:10 15:10 WBC 6.1 (3.8-10.6) k/uL RBC 4.23 (3.80-5.40) m/uL Hgb 12.5 (11.4-16.0) gm/dL Hct 36.6 (34.0-46.0) % MCV 86.7 (80.0-100.0) fL MCH 29.6 (25.0-35.0) pg MCHC 34.2 (31.0-37.0) g/dL RDW 13.4 (11.5-15.5) % Plt Count 239 (150-450) k/uL MPV 7.6 Neutrophils % 63 % Lymphocytes % 27 % Monocytes % 5 % Eosinophils % 2 % Basophils % 0 % Neutrophils # 3.8 (1.3-7.7) k/uL Lymphocytes # 1.6 (1.0-4.8) k/uL Monocytes # 0.3 (0-1.0) k/uL Eosinophils # 0.1 (0-0.7) k/uL Basophils # 0.0 (0-0.2) k/uL PT 9.5 (9.0-12.0) sec INR 0.9 (<1.2) APTT 23.1 (22.0-30.0) sec Sodium 138 (137-145) mmol/L Potassium 4.5 (3.5-5.1) mmol/L Chloride 108 H (98-107) mmol/L Carbon Dioxide 24 (22-30) mmol/L Anion Gap 6 mmol/L BUN 13 (7-17) mg/dL Creatinine 0.63 (0.52-1.04) mg/dL Est GFR (CKD-EPI)AfAm >90 (>60 ml/min/1.73 sqM) Est GFR (CKD-EPI)NonAf >90 (>60 ml/min/1.73 sqM) Glucose 120 H (74-99) mg/dL Plasma Lactic Acid Jorge (0.7-2.0) mmol/L Calcium 9.2 (8.4-10.2) mg/dL Magnesium 1.7 (1.6-2.3) mg/dL Total Bilirubin 0.3 (0.2-1.3) mg/dL AST 25 (14-36) U/L ALT 22 (4-34) U/L Alkaline Phosphatase 73 (38-126) U/L NT-Pro-B Natriuret Pep pg/mL Total Protein 6.9 (6.3-8.2) g/dL Albumin 4.0 (3.5-5.0) g/dL 07/22/22 07/22/22 Range/Units 15:10 15:10 WBC (3.8-10.6) k/uL RBC (3.80-5.40) m/uL Hgb (11.4-16.0) gm/dL Hct (34.0-46.0) % MCV (80.0-100.0) fL MCH (25.0-35.0) pg MCHC (31.0-37.0) g/dL RDW (11.5-15.5) % Plt Count (150-450) k/uL MPV Neutrophils % % Lymphocytes % % Monocytes % % Eosinophils % % Basophils % % Neutrophils # (1.3-7.7) k/uL Lymphocytes # (1.0-4.8) k/uL Monocytes # (0-1.0) k/uL Eosinophils # (0-0.7) k/uL Basophils # (0-0.2) k/uL PT (9.0-12.0) sec INR (<1.2) APTT (22.0-30.0) sec Sodium (137-145) mmol/L Potassium (3.5-5.1) mmol/L Chloride (98-107) mmol/L Carbon Dioxide (22-30) mmol/L Anion Gap mmol/L BUN (7-17) mg/dL Creatinine (0.52-1.04) mg/dL Est GFR (CKD-EPI)AfAm (>60 ml/min/1.73 sqM) Est GFR (CKD-EPI)NonAf (>60 ml/min/1.73 sqM) Glucose (74-99) mg/dL Plasma Lactic Acid Jorge 1.3 (0.7-2.0) mmol/L Calcium (8.4-10.2) mg/dL Magnesium (1.6-2.3) mg/dL Total Bilirubin (0.2-1.3) mg/dL AST (14-36) U/L ALT (4-34) U/L Alkaline Phosphatase (38-126) U/L NT-Pro-B Natriuret Pep 151 pg/mL Total Protein (6.3-8.2) g/dL Albumin (3.5-5.0) g/dL Disposition <Davie Rod - Last Filed: 07/22/22 14:48> Is patient prescribed a controlled substance at d/c from ED?: No Time of Disposition: 18:06 <Val Raphael - Last Filed: 07/22/22 23:40> Clinical Impression: Localized swelling of both lower legs Disposition: HOME SELF-CARE Condition: Stable Instructions (If sedation given, give patient instructions): Leg Edema (ED) Additional Instructions: please return to the nearest ED if worsening leg swelling, shortness of breath, chest pain develops Prescriptions: Furosemide [Lasix] 40 mg PO DAILY 30 Days #30 tablet Referrals: Vipin Wilkes MD [Primary Care Provider] - 1-2 days
[2022-07-22 15:29] LABS: Basophils % (A) 0 %; Eosinophils # (A) 0.1 k/uL (0-0.7); Eosinophils % (A) 2 %; HCT 36.6 % (34.0-46.0); HGB 12.5 gm/dL (11.4-16.0); Lymphocytes # (A) 1.6 k/uL (1.0-4.8); Lymphocytes % (A) 27 %; MCH 29.6 pg (25.0-35.0); MCHC 34.2 g/dL (31.0-37.0); MCV 86.7 fL (80.0-100.0); Mean Platelet Volume 7.6; Monocytes # (A) 0.3 k/uL (0-1.0); Monocytes % (A) 5 %; Neutrophils # (A) 3.8 k/uL (1.3-7.7); Neutrophils % (A) 63 %; Platelet Count 239 k/uL (150-450); RBC 4.23 m/uL (3.80-5.40); RDW 13.4 % (11.5-15.5); WBC 6.1 k/uL (3.8-10.6)
[2022-07-22 15:37] LABS: INR 0.9 (<1.2); Partial Thromboplastin Time 23.1 sec (22.0-30.0); Prothrombin Time 9.5 sec (9.0-12.0)
[2022-07-22 15:52] LABS: ALT 22 U/L (4-34); AST 25 U/L (14-36); African American GFR (CKD) >90 (>60 ml/min/1.73 sqM); Alkaline Phosphatase 73 U/L (38-126); Anion Gap 6 mmol/L; Blood Urea Nitrogen 13 mg/dL (7-17); Calcium 9.2 mg/dL (8.4-10.2); Carbon Dioxide 24 mmol/L (22-30); Chloride 108 mmol/L (98-107); Glucose 120 mg/dL (74-99); Magnesium 1.7 mg/dL (1.6-2.3); Non-African American GFR(CKD) >90 (>60 ml/min/1.73 sqM); Potassium 4.5 mmol/L (3.5-5.1); Sodium 138 mmol/L (137-145); Total Bilirubin 0.3 mg/dL (0.2-1.3); Total Protein 6.9 g/dL (6.3-8.2)
--- NOTE | 2022-07-22 17:39 | US ---
EXAMINATION TYPE: US venous doppler duplex LE DATE OF EXAM: 07/22/2022 5:15 PM COMPARISON: NONE CLINICAL HISTORY: BL edema. Cellulitis SIDE PERFORMED: bilateral TECHNIQUE: The lower extremity deep venous system is examined utilizing real time linear array sonog renny with graded compression, doppler sonography and color-flow sonography. VESSELS IMAGED: Common Femoral Vein Deep Femoral Vein Greater Saphenous Vein * Femoral Vein Popliteal Vein Small Saphenous Vein * Proximal Calf Veins (* superficial vessels) Right Leg: No evidence of DVT. Patient unable to tolerate compressions lower femoral vein Left Leg: No evidence of DVT. Patient unable to tolerate compressions femoral vein IMPRESSION: No evidence of deep vein thrombosis in both legs.
[2022-07-22 18:14] VITALS: BP 136/63; PULSE 84; RESP 18; TEMP 98.6
== END 2022-07-22 18:14 | disposition home or self-care (01) ==
LOC: EC 13:31
DX: R22.43 Localized swelling, mass and lump, lower limb, bilateral (principal); J45.909 Unspecified asthma, uncomplicated; F41.9 Anxiety disorder, unspecified; F31.9 Bipolar disorder, unspecified; F17.200 Nicotine dependence, unspecified, uncomplicated; Z88.8 Allergy status to other drugs, medicaments and biological substances
CPT/HCPCS: 36415; 80053; 83605; 83735; 83880; 85025; 85610; 85730; 93970; 99284

== ENCOUNTER 2022-10-10 11:22 | Emergency (ER) | payer OTHER ==
[2022-10-10 11:32] VITALS: TEMP 98.3
--- NOTE | 2022-10-10 11:56 | ED ---
Extremity Problem HPI - General Chief complaint: Extremity Injury, Lower Stated complaint: leg edema Time Seen by Provider: 10/10/22 11:34 Source: patient, RN notes reviewed Mode of arrival: ambulatory Limitations: no limitations - History of Present Illness Initial comments: This is a 36-year-old female who presents to the emergency department for bilat eral lower extremity swelling. Patient states that this has been present for the last month. She's been on Lasix 40 mg for 2 weeks with no improvement in symptoms. She has also had blood work and an ultrasound of both lower extremities within the last couple of weeks, also revealing no acute findings. States that she's had problems with leg swelling that typically occurs several times a year. However, it always improves with Lasix, which has not been the case this time. The legs are also painful. Denies any pain or swelling elsewhere. She denies any chest pain or shortness of breath. Denies any fevers, chills, sore throat, cough, dyspnea, chest pain, palpitations, abdominal pain, nausea, vomiting, diarrhea, back pain, or headaches. MD Complaint: extremity pain, extremity swelling - Related Data Previous Rx's Medication Instructions Recorded Furosemide [Lasix] 40 mg PO DAILY 30 Days #30 tablet 07/22/22 Allergies Allergy/AdvReac Type Severity Reaction Status Date / Time lorazepam [From Ativan] AdvReac Hallucinati Verified 10/10/22 13:00 ons Review of Systems ROS Statement: Those systems with pertinent positive or pertinent negative responses have been documented in the HPI. ROS Other: All systems not noted in ROS Statement are negative. Past Medical History Past Medical History: Asthma, Seizure Disorder Additional Past Medical History / Comment(s): last seizure two years ago. History of Any Multi-Drug Resistant Organisms: None Reported Past Surgical History: Section Past Anesthesia/Blood Transfusion Reactions: No Reported Reaction Past Psychological History: Anxiety, Bipolar, Depression Smoking Status: Current every day smoker Past Alcohol Use History: Daily, Heavy Past Drug Use History: Cocaine, Marijuana - Past Family History Father Family Medical History: No Reported History Mother Family Medical History: COPD General Exam Limitations: no limitations General appearance: alert, in no apparent distress Respiratory exam: Present: normal lung sounds bilaterally. Absent: respiratory distress, wheezes, rales, rhonchi, stridor Cardiovascular Exam: Present: regular rate, normal rhythm, normal heart sounds. Absent: systolic murmur, diastolic murmur, rubs, gallop, clicks Extremities exam: Present: other (Nonpitting bilateral lower extremity edema with overlying erythema and tenderness. 2+ DP and TP pulses bilaterally. Capillary refill less than 1 second.) Neurological exam: Present: alert, oriented X3, CN II-XII intact Psychiatric exam: Present: normal affect, normal mood Skin exam: Present: warm, dry, intact Course Vital Signs 10/10/22 10/10/22 10/10/22 11:30 12:32 14:47 Temperature 98.3 F Pulse Rate 99 78 68 Respiratory 16 18 18 Rate Blood Pressure 133/70 116/58 113/65 O2 Sat by Pulse 98 95 96 Oximetry Medical Decision Making - Medical Decision Making This is a 36-year-old female who presents to the emergency department for bilateral lower extremity swelling. Was pt. sent in by a medical professional or institution? @ -No Did you speak to anyone other than the patient for history? @ -No Did you review nursing and triage notes? @ -Yes, and I agree, it is accurate with regards to the patient's symptoms. Were old charts reviewed? @ -No Differential Diagnosis? @ -Differential Leg Swelling: Cellullitis, Gout, DVT, PVD, arterial insufficiency, congestive heart failure, compartment syndrome, venous stasis changes, thrombophlebitis, contact dermatitis, necrotizing fasciitis, septic arthritis, this is not meant to be an all-inclusive list. CT interpreted by me (1pt min.)? @ -Computed tomography scan of the abdomen and pelvis obtained. My interpretation identifies no evidence of bowel wall thickening or masses on the IVC. What testing was considered but not performed? (CT, X-rays, U/S, labs)? Why? @ -None What meds were considered but not given? Why? @ -None Did you discuss the management of the patient with other professionals? @ -No Did you reconcile home meds? @ -No Was smoking cessation discussed for >3mins.? @ -No Was critical care preformed (if so, how long)? @ -No Were there social determinants of health that impacted care today? How? (Homelessness, low income, unemployed, alcoholism, drug addiction, transportation, low edu. Level, literacy, decrease access to med. care, skilled nursing, rehab)? @ -No Was there de-escalation of care discussed even if they declined? (Discuss DNR or withdrawal of care, Hospice)? @ -No What co-morbidities impacted this encounter? (DM, HTN, Smoking, COPD, CAD, Cancer, CVA, Hep., AIDS, mental health diagnosis, sleep apnea, morbid obesity)? @ -Morbid obesity Was patient admitted / discharged? @ -Discharged. Lab work obtained and found to be nonactionable. Duplex ultrasound obtained 2 weeks ago at [facility] was negative, will not repeat. Case discussed with Dr. Carreon, who advised a computed tomography scan of the abdomen and pelvis to look for evidence of an outflow ob struction. Computed tomography scan revealed no evidence of this, such as no masses over the IVC. Discussed with the patient, that we do not have an answer at this time, as she has no evidence of congestive heart failure, hepatic or renal impairment, or hypothyroidism. Prior to discharge, she did inquire about sleepwalking. States that she's never seen a sleep specialist or had a sleep study. Discussed that if she were to have other sleep disorders such as an obstructive sleep apnea, this can contribute to swelling. Information for follow-up with sleep specialist provided. She otherwise advised to continue taking her Lasix as prescribed and follow up with her primary care provider as andrew velez. Also encouraged weight loss, limiting sodium intake, and elevating the legs. Undiagnosed new problem with uncertain prognosis? @ -None Drug Therapy requiring intensive monitoring for toxicity (Heparin, Nitro, Insulin, Cardizem)? @ -None Were any procedures done? @ -None Diagnosis/symptom? @ -Bilateral LE edema Acute, or Chronic, or Acute on Chronic? @ -Acute Uncomplicated (without systemic symptoms) or Complicated (systemic symptoms)? @ -Uncomplicated Side effects of treatment? @ -None Exacerbation, Progression, or Severe Exacerbation] @ -Not applicable Poses a threat to life or bodily function? @ -No Diagnosis/symptom? @ -Sleep walking Acute, or Chronic, or Acute on Chronic? @ -Chronic Uncomplicated (without systemic symptoms) or Complicated (systemic symptoms)? @ -Uncomplicated Side effects of treatment? @ -None Exacerbation, Progression, or Severe Exacerbation] @ -Stable Poses a threat to life or bodily function? @ -No Return precautions reviewed in depth, the patient is instructed to return to the emergency department with any new, worsening, or concerning symptoms. Patient verbalized understanding. This case was discussed in detail with the attending ED physician, Dr. Carreon. Presentation, findings, and treatment plan discussed in detail as well. - Lab Data Result diagrams: 10/10/22 12:16 10/10/22 12:16 Lab Results 10/10/22 10/10/22 10/10/22 Range/Units 12:16 12:16 12:16 WBC 5.6 (3.8-10.6) k/uL RBC 4.11 (3.80-5.40) m/uL Hgb 11.8 (11.4-16.0) gm/dL Hct 35.0 (34.0-46.0) % MCV 85.0 (80.0-100.0) fL MCH 28.6 (25.0-35.0) pg MCHC 33.6 (31.0-37.0) g/dL RDW 12.9 (11.5-15.5) % Plt Count 215 (150-450) k/uL MPV 7.8 Neutrophils % 67 % Lymphocytes % 22 % Monocytes % 5 % Eosinophils % 4 % Basophils % 0 % Neutrophils # 3.7 (1.3-7.7) k/uL Lymphocytes # 1.2 (1.0-4.8) k/uL Monocytes # 0.3 (0-1.0) k/uL Eosinophils # 0.2 (0-0.7) k/uL Basophils # 0.0 (0-0.2) k/uL ESR 23 H (0-20) mm/hr Sodium 137 (137-145) mmol/L Potassium 4.9 (3.5-5.1) mmol/L Chloride 107 (98-107) mmol/L Carbon Dioxide 25 (22-30) mmol/L Anion Gap 5 mmol/L BUN 12 (7-17) mg/dL Creatinine 0.51 L (0.52-1.04) mg/dL Est GFR (CKD-EPI)AfAm >90 (>60 ml/min/1.73 sqM) Est GFR (CKD-EPI)NonAf >90 (>60 ml/min/1.73 sqM) Glucose 99 (74-99) mg/dL Plasma Lactic Acid Jorge 1.4 (0.7-2.0) mmol/L Calcium 8.3 L (8.4-10.2) mg/dL Total Bilirubin 0.4 (0.2-1.3) mg/dL AST 25 (14-36) U/L ALT 22 (4-34) U/L Alkaline Phosphatase 65 (38-126) U/L C-Reactive Protein <0.5 (<1.0) mg/dL NT-Pro-B Natriuret Pep pg/mL Total Protein 6.4 (6.3-8.2) g/dL Albumin 3.6 (3.5-5.0) g/dL TSH 1.480 (0.465-4.680) mIU/L Urine Color Urine Appearance (Clear) Urine pH (5.0-8.0) Ur Specific [place] (1.001-1.035) Urine Protein (Negative) Urine Glucose (UA) (Negative) Urine Ketones (Negative) Urine Blood (Negative) Urine Nitrite (Negative) Urine Bilirubin (Negative) Urine Urobilinogen (<2.0) mg/dL Ur Leukocyte Esterase (Negative) Urine RBC (0-5) /hpf Urine WBC (0-5) /hpf Ur Squamous Epith Cells (0-4) /hpf Urine Bacteria (None) /hpf Hyaline Casts (0-2) /lpf Urine Mucus (None) /hpf Urine HCG, Qual (Not Detectd) 10/10/22 10/10/22 10/10/22 Range/Units 12:16 12:44 12:44 WBC (3.8-10.6) k/uL RBC (3.80-5.40) m/uL Hgb (11.4-16.0) gm/dL Hct (34.0-46.0) % MCV (80.0-100.0) fL MCH (25.0-35.0) pg MCHC (31.0-37.0) g/dL RDW (11.5-15.5) % Plt Count (150-450) k/uL MPV Neutrophils % % Lymphocytes % % Monocytes % % Eosinophils % % Basophils % % Neutrophils # (1.3-7.7) k/uL Lymphocytes # (1.0-4.8) k/uL Monocytes # (0-1.0) k/uL Eosinophils # (0-0.7) k/uL Basophils # (0-0.2) k/uL ESR (0-20) mm/hr Sodium (137-145) mmol/L Potassium (3.5-5.1) mmol/L Chloride (98-107) mmol/L Carbon Dioxide (22-30) mmol/L Anion Gap mmol/L BUN (7-17) mg/dL Creatinine (0.52-1.04) mg/dL Est GFR (CKD-EPI)AfAm (>60 ml/min/1.73 sqM) Est GFR (CKD-EPI)NonAf (>60 ml/min/1.73 sqM) Glucose (74-99) mg/dL Plasma Lactic Acid Jorge (0.7-2.0) mmol/L Calcium (8.4-10.2) mg/dL Total Bilirubin (0.2-1.3) mg/dL AST (14-36) U/L ALT (4-34) U/L Alkaline Phosphatase (38-126) U/L C-Reactive Protein (<1.0) mg/dL NT-Pro-B Natriuret Pep 215 pg/mL Total Protein (6.3-8.2) g/dL Albumin (3.5-5.0) g/dL TSH (0.465-4.680) mIU/L Urine Color Colorless Urine Appearance Clear (Clear) Urine pH 5.0 (5.0-8.0) Ur Specific [place] 1.006 (1.001-1.035) Urine Protein Negative (Negative) Urine Glucose (UA) Negative (Negative) Urine Ketones Negative (Negative) Urine Blood Large H (Negative) Urine Nitrite Negative (Negative) Urine Bilirubin Negative (Negative) Urine Urobilinogen <2.0 (<2.0) mg/dL Ur Leukocyte Esterase Moderate H (Negative) Urine RBC 1 (0-5) /hpf Urine WBC 8 H (0-5) /hpf Ur Squamous Epith Cells 4 (0-4) /hpf Urine Bacteria Rare H (None) /hpf Hyaline Casts 3 H (0-2) /lpf Urine Mucus Rare H (None) /hpf Urine HCG, Qual Not Detected (Not Detectd) - Radiology Data Radiology results: report reviewed, image reviewed Disposition Clinical Impression: Swelling of both lower extremities, Sleep walking Disposition: HOME SELF-CARE Instructions (If sedation given, give patient instructions): Leg Edema (ED) Additional Instructions: Return to the emergency department with any new, worsening, or concerning symptoms. Reduce your sodium intake and keep your legs elevated. Continue taking your Lasix as prescribed. Contact Dr. Patrick as listed below, to discuss your sleepwalking and leg swelling, in the event the swelling may be related to sleep apnea or another sleep disorder. Follow up with your primary care provider in 1-2 days. Is patient prescribed a controlled substance at d/c from ED?: No Referrals: Vipin Wilkes MD [Primary Care Provider] - 1-2 days Bulmaro Patrick MD [STAFF PHYSICIAN] - 1-2 days
[2022-10-10 12:23] LABS: Basophils % (A) 0 %; Eosinophils # (A) 0.2 k/uL (0-0.7); Eosinophils % (A) 4 %; HGB 11.8 gm/dL (11.4-16.0); Lymphocytes # (A) 1.2 k/uL (1.0-4.8); Lymphocytes % (A) 22 %; MCH 28.6 pg (25.0-35.0); MCHC 33.6 g/dL (31.0-37.0); Mean Platelet Volume 7.8; Monocytes # (A) 0.3 k/uL (0-1.0); Monocytes % (A) 5 %; Neutrophils # (A) 3.7 k/uL (1.3-7.7); Neutrophils % (A) 67 %; Platelet Count 215 k/uL (150-450); RBC 4.11 m/uL (3.80-5.40); RDW 12.9 % (11.5-15.5); WBC 5.6 k/uL (3.8-10.6)
[2022-10-10 12:36] LABS: ALT 22 U/L (4-34); AST 25 U/L (14-36); African American GFR (CKD) >90 (>60 ml/min/1.73 sqM); Albumin 3.6 g/dL (3.5-5.0); Alkaline Phosphatase 65 U/L (38-126); Anion Gap 5 mmol/L; Blood Urea Nitrogen 12 mg/dL (7-17); C Reactive Protein <0.5 mg/dL (<1.0); Calcium 8.3 mg/dL (8.4-10.2); Carbon Dioxide 25 mmol/L (22-30); Chloride 107 mmol/L (98-107); Glucose 99 mg/dL (74-99); Non-African American GFR(CKD) >90 (>60 ml/min/1.73 sqM); Potassium 4.9 mmol/L (3.5-5.1); Sodium 137 mmol/L (137-145); Total Bilirubin 0.4 mg/dL (0.2-1.3); Total Protein 6.4 g/dL (6.3-8.2)
[2022-10-10 13:07] LABS: Appearance,Urine Clear (Clear); Bacteria,Urine Rare /hpf; Bilirubin,Urine Negative (Negative); Blood,Urine Large (Negative); Color,Urine Colorless; Glucose,Urine (UA) Negative (Negative); Hyaline Casts,Urine 3 /lpf (0-2); Ketones,Urine Negative (Negative); Leukocyte Esterase,Urine Moderate (Negative); Mucus,Urine Rare /hpf; Nitrite,Urine Negative (Negative); Protein,Urine Negative (Negative); RBC,Urine 1 /hpf (0-5); Specific Gravity,Urine 1.006 (1.001-1.035); Squamous Epithelial Cell,Urine 4 /hpf (0-4); Urobilinogen,Urine <2.0 mg/dL (<2.0); WBC,Urine 8 /hpf (0-5)
[2022-10-10 13:10] VITALS: RESP 18
--- NOTE | 2022-10-10 14:45 | CT ---
EXAMINATION TYPE: CT abdomen pelvis w con DATE OF EXAM: 10/10/2022 COMPARISON: 03/08/2021 HISTORY: B/L leg swelling CT DLP: 3240.4 mGycm Automated exposure control for dose reduction was used. CONTRAST: Performed with IV Contrast, patient injected with 100 mL of Isovue 300. Images obtained from the diaphragm to the floor the pelvis with IV contrast. Lung bases are clear of consolidation. No pleural effusion. Heart size is normal. No pericardial effu jignesh. Liver spleen and stomach pancreas and gallbladder appear intact. The bile ducts are not dilated. There is no adrenal mass. Kidneys show satisfactory contrast opacification. No hydronephrosis. Ureter s are not dilated. There is very little contrast excretion on the delayed images. No retroperitoneal adenopathy. The bladder distends smoothly. No inguinal hernia. No free fluid in the pelvis. Uterus is anteverted. No pelvic mass. Appendix is posterior and medial and appears normal. There is no mesenteric edema. No ascites or free air. No sign of a bowel obstruction. There is L5 spondylolysis with minimal L5-S1 spondylolisthesis. No lumbar compression fracture. Bony pelvis is intact. The hip joints are intact. There is mild subc utaneous edema over the posterior lower lumbar spine. Impression There is no contrast excretion on the delayed images that could relate to renal failure. No evidence of renal mass or obstruction. Normal appendix.
[2022-10-10 14:54] VITALS: BP 113/65; PULSE 68
[2022-10-10 15:21] LABS: Erythrocyte Sedimentation Rate 23 mm/hr (0-20)
[2022-10-10] MEDS ORDERED: ACET/COD 300 MG/30 MG STARTER PACK 6 TAB BTL PO STA (15:23)
== END 2022-10-10 15:29 | disposition home or self-care (01) ==
LOC: EC 11:22
DX: F51.3 Sleepwalking [somnambulism] (principal); R22.43 Localized swelling, mass and lump, lower limb, bilateral; J45.909 Unspecified asthma, uncomplicated; F17.200 Nicotine dependence, unspecified, uncomplicated; F12.90 Cannabis use, unspecified, uncomplicated; F14.90 Cocaine use, unspecified, uncomplicated; Z88.8 Allergy status to other drugs, medicaments and biological substances
CPT/HCPCS: 99284 ×2; 36415; 83880; 80053; 85652; 84443; 83605; 85025; 86140; 81001; 81025; 74177; Q9967

== ENCOUNTER → 2023-03-22 | Outpatient (CLI) | payer OTHER ==
[2023-03-22 13:45] VITALS: BP 127/84; PULSE 88; RESP 17; TEMP 98.8
--- NOTE | 2023-03-22 14:49 | P.HPOB ---
History of Present Illness H&P Date: 03/22/23 Chief Complaint: The patient is here for her routine gynecologic exam. This is a 37-year-old with an LMP of 03/08/2023. The patient is here to establish with this office. It has been about 3 years since her last pelvic exam. She states she has been actively trying to get for about 2-1/2 years and this has been unsuccessful. Menstrual periods have been regular every month. Her has children from a previous relationship. She did not have any problems getting with her 13-year-old and 17-year-old children. She is experiencing urinary frequency and urinary urgency for about 2 weeks. She denies dysuria or genital odor. Review of Systems She states her weight can fluctuate by 50 pounds. This is typically after dieting and she then can gain the weight back very Quickly. She denies respiratory, cardiac, or GI problems. Past Medical History Past Medical History: Asthma, Seizure Disorder Additional Past Medical History / Comment(s): Grand mal seizures, last seizure 2019. 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 She has not had HSV outbreaks. History of Any Multi-Drug Resistant Organisms: None Reported Past Surgical History: Section Additional Past Surgical History / Comment(s): section 2. Past Anesthesia/Blood Transfusion Reactions: No Reported Reaction Past Psychological History: Anxiety, Bipolar, Depression Smoking Status: Current every day smoker (1 pack per day.) Past Alcohol Use History: Daily, Heavy Past Drug Use History: Cocaine, Marijuana (Daily use.), Prescription Drug Abuse Additional Drug Use History / Comment(s): She states she has been off of prescription opioid pain medications since July 2022. - Past Family History Father Family Medical History: No Reported History Mother Family Medical History: Cancer, COPD Additional Family Medical History / Comment(s): Hysterectomy for some type of cancer. Exact type is unknown. Medications and Allergies Home Medications Medication Instructions Recorded Confirmed Type ARIPiprazole [Abilify] 5 mg PO DAILY 03/22/23 03/22/23 History Buprenorphine HCl/Naloxone HCl 8 mg PO BID 03/22/23 03/22/23 History [Suboxone 8 mg-2 mg Sl Film] Allergies Allergy/AdvReac Type Severity Reaction Status Date / Time lorazepam [From Ativan] AdvReac Hallucinati Verified 03/22/23 13:38 ons Exam Vital Signs Temp Pulse Resp BP Pulse Ox 03/22/23 13:40 98.8 F 88 17 127/84 97 Intake and Output 03/21/23 03/22/23 03/22/23 22:59 06:59 14:59 Other: Weight 136.078 kg Height 5 feet 9 inches, weight 300 pounds, BMI 44.3. This is a well-developed well-nourished heavyset white female who is alert and oriented times 3 in no acute distress. HEENT: Within normal limits. NECK: Supple without mass or thyromegaly. CHEST AND LUNGS: Clear to auscultation. HEART: Regular rate and rhythm. BREASTS: Are without mass or discharge. AXILLARY EXAM: Negative for adenopathy. BACK: Negative for CVA tenderness. ABDOMEN: Soft, nontender, without palpable masses. PELVIC EXAM: Normal external genitalia. Cervix and vagina appear normal. There is no unusual discharge. There is no evidence of prolapse. The uterus is midposition, nongravid size and nontender. There are no palpable adnexal masses or tenderness. Bimanual examination is somewhat limited secondary to her size. RECTAL EXAM: negative for mass or tenderness. EXTREMITIES: Nontender. IMPRESSION: 1. 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 2. Obesity 3. Urinary urgency and urinary frequency. PLAN: 1. Pap smear cotest was performed. 2. Self breast awareness was discussed with the patient. We have also discussed symptoms associated with inflammatory breast cancer. 3. GC and chlamydia testing were obtained from the cervix. 4. Urine has been obtained for urinalysis and culture with sensitivities. 5. Recommended taking a multivitamin since she is actively trying to get . She should make sure that the multivitamin has folic acid. She understands this may help to decrease certain defects. 6. We have discussed theoretical risks with medications taken during . Risks can include defects as well as other effects on the baby or . She can discuss the need for medications that she is on with the prescriber. I have also recommended that she try to establish with an [employer] who deliveries babies uterine prior to getting . 7. We have had a long discussion regarding infertility and possible causes. She understands that I generally do not test or treat for infertility. She is requesting testing for tubal blockage. I will order an HSG for this purpose. She understands that I will not be doing any additional testing or treatment for her infertility. She understands there are infertility specialist that she can see for this she understands she should do the HSG within the 2 weeks following a normal menstrual period. 8. She was advised to return in one year for her annual well woman exam and as needed.
--- NOTE | 2023-03-23 16:04 | P.PN ---
Progress Note - Text Progress Note Date: 03/23/23 OUTPATIENT FOLLOW-UP NOTE TEST(S)/RESULTS: Urinalysis done on 03/22/2023. Trace leukocyte esterase, 6-10 white blood cells and 2-5 red blood cells. METHOD OF NOTIFICATION: The patient was notified by phone. PATIENT COMMENTS: She states she does have UTI symptoms including urinary frequency and urgency. DIAGNOSIS: Cystitis UTI. DISCUSSION: She will be treated with Macrobid 1 by mouth twice a day 7 days. We will also await the urine culture with sensitivities. If her symptoms are not improving, we will be able to check the culture to see if the infection was sensitive to nitrofurantoin. PLAN: The electronic prescription for the above was sent to [facility] on
== END ==
LOC: WWCWWP 13:21
PROVIDERS: ATTEND Obstetrics & Gynecology
DX: Z01.419 Encounter for gynecological examination (general) (routine) without abnormal findings (principal); E66.9 Obesity, unspecified; F17.210 Nicotine dependence, cigarettes, uncomplicated; N30.90 Cystitis, unspecified without hematuria; G40.409 Other generalized epilepsy and epileptic syndromes, not intractable, without status epilepticus; N97.9 Female infertility, unspecified; J45.909 Unspecified asthma, uncomplicated; Z68.41 Body mass index [BMI] 40.0-44.9, adult; Z88.8 Allergy status to other drugs, medicaments and biological substances

== ENCOUNTER 2023-06-29 14:09 | Inpatient (IN) | payer MEDICAID, OTHER ==
--- NOTE | 2023-06-29 14:29 | ED ---
Psych HPI - General Chief Complaint: Psychiatric Symptoms Stated Complaint: Mental Health Time Seen by Provider: 06/29/23 14:14 Source: patient, RN notes reviewed Mode of arrival: ambulatory Limitations: no limitations - History of Present Illness Initial Comments: 37-year-old female presents emergency Department with chief complaint of needing psychiatric evaluation. Patient states she is currently on Abilify for her bipolar disorder. Patient states is not helping. She's been on several antipsychotics in the past. Patient states that she just doesn't feel stable she states she is depressed and suicidal. Patient denies any current illicit drug use or alcohol abuse - Related Data Home Medications Medication Instructions Recorded Confirmed Buprenorphine HCl/Naloxone HCl 1 film PO BID 03/22/23 06/29/23 [Suboxone 8 mg-2 mg Sl Film] ARIPiprazole [Abilify] 10 mg PO HS 06/29/23 06/29/23 Albuterol Sulfate [Ventolin HFA] 1 puff QID PRN 06/29/23 06/29/23 Allergies Allergy/AdvReac Type Severity Reaction Status Date / Time lorazepam [From Ativan] AdvReac Hallucinati Verified 06/29/23 16:48 ons Review of Systems ROS Statement: Those systems with pertinent positive or pertinent negative responses have been documented in the HPI. ROS Other: All systems not noted in ROS Statement are negative. Past Medical History Past Medical History: Asthma, Seizure Disorder Additional Past Medical History / Comment(s): Grand mal seizures, last seizure 2019. 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 She has not had HSV outbreaks. History of Any Multi-Drug Resistant Organisms: None Reported Past Surgical History: Section Additional Past Surgical History / Comment(s): section 2. Past Anesthesia/Blood Transfusion Reactions: No Reported Reaction Past Psychological History: Anxiety, Bipolar, Depression Smoking Status: Current every day smoker Past Alcohol Use History: Daily, Heavy Past Drug Use History: Cocaine, Marijuana, Prescription Drug Abuse - Past Family History Father Family Medical History: No Reported History Mother Family Medical History: Cancer, COPD Additional Family Medical History / Comment(s): Hysterectomy for some type of cancer. Exact type is unknown. General Exam Limitations: no limitations General appearance: alert, in no apparent distress Head exam: Present: atraumatic, normocephalic, normal inspection Eye exam: Present: normal appearance, PERRL, EOMI. Absent: scleral icterus, conjunctival injection, periorbital swelling ENT exam: Present: normal exam, normal oropharynx, mucous membranes moist Neck exam: Present: normal inspection, full ROM. Absent: tenderness, meningismus, lymphadenopathy Respiratory exam: Present: normal lung sounds bilaterally. Absent: respiratory distress, wheezes, rales, rhonchi, stridor Cardiovascular Exam: Present: regular rate, normal rhythm, normal heart sounds. Absent: systolic murmur, diastolic murmur, rubs, gallop, clicks Psychiatric exam: Present: depressed Course Vital Signs 06/29/23 06/29/23 14:11 18:43 Temperature 98.2 F 97.2 F L Pulse Rate 103 H 90 Respiratory 18 18 Rate Blood Pressure 133/82 108/77 O2 Sat by Pulse 100 97 Oximetry Medical Decision Making - Medical Decision Making Was pt. sent in by a medical professional or institution (LILIANE Walker, SEWER INSPECTOR, urgent care, hospital, or custodial...) When possible be specific @ -No Did you speak to anyone other than the patient for history (EMS, parent, family, police, friend...)? What history was obtained from this source @ -No Did you review nursing and triage notes (agree or disagree)? Why? @ -I reviewed and agree with nursing and triage notes Were old charts reviewed (outside hosp., previous admission, EMS record, old EKG, old radiological studies, urgent care reports/EKG's, custodial records)? Report findings @ -No old charts were reviewed Differential Diagnosis (chest pain, altered mental status, abdominal pain women, abdominal pain men, vaginal bleeding, weakness, fever, dyspnea, syncope, headache, dizziness, GI bleed, back pain, seizure, CVA, palpatations, mental health, musculoskeletal)? @ -Differential Mental Health Depression, anxiety, bipolar, psychosis, schizophrenia, borderline personality, situational depression, adjustment disorder, behavioral disorder, brain tumor, malingering, substance abuse, encephalopathy, medication reaction, dementia, hypothyroidism, degenerative neurologic disorder, lupus.... This is not meant to be all-inclusive list EKG interpreted by me (3pts min.). @ -None X-rays interpreted by me (1pt min.). @ -None done CT interpreted by me (1pt min.). @ -None done U/S interpreted by me (1pt. min.). @ -None done What testing was considered but not performed or refused? (CT, X-rays, U/S, l abs)? Why? @ -None What meds were considered but not given or refused? Why? @ -None Did you discuss the management of the patient with other professionals (professionals i.e. , PA, SEWER INSPECTOR, lab, RT, psych nurse, social studies teacher, fulfillment associate, teacher, licensed loan officer assistant, corrections caseworker)? Give summary @ -Patient by EPS recommended to be transferred to psychiatric facility. Was smoking cessation discussed for >3mins.? @ -No Was critical care preformed (if so, how long)? @ -No Were there social determinants of health that impacted care today? How? (Homelessness, low income, unemployed, alcoholism, drug addiction, transpor tation, low edu. Level, literacy, decrease access to med. care, prison, rehab)? @ -No Was there de-escalation of care discussed even if they declined (Discuss DNR or withdrawal of care, Hospice)? DNR status @ -No What co-morbidities impacted this encounter? (DM, HTN, Smoking, COPD, CAD, Cancer, CVA, ARF, Chemo, Hep., AIDS, mental health diagnosis, sleep apnea, morbid obesity)? @ -None Was patient admitted / discharged? Hospital course, mention meds given and route, prescriptions, significant lab abnormalities, going to OR and other pertinent info. @ -Transferred to psychiatric facility for further treatment Undiagnosed new problem with uncertain prognosis? @ -No Drug Therapy requiring intensive monitoring for toxicity (Heparin, Nitro, Insulin, Cardizem)? @ -No Were any procedures done? @ -No Diagnosis/symptom? @ -Bipolar disorder Acute, or Chronic, or Acute on Chronic? @ -Acute Uncomplicated (without systemic symptoms) or Complicated (systemic symptoms)? @ -[Complicated Side effects of treatment? @ -No Exacerbation, Progression, or Severe Exacerbation? @ -No Poses a threat to life or bodily function? How? (Chest pain, [place], [place], pneumonia, PE, COPD, DKA, ARF, appy, cholecystitis, CVA, Diverticulitis, Homicidal, Suicidal, threat to staff... and all critical care pts) @ -[Yes patient is suicidal - Lab Data Result diagrams: 06/29/23 16:28 06/29/23 16:28 Lab Results 06/29/23 06/29/23 06/29/23 Range/Units 14:34 16:14 16:14 WBC (3.8-10.6) k/uL RBC (3.80-5.40) m/uL Hgb (11.4-16.0) gm/dL Hct (34.0-46.0) % MCV (80.0-100.0) fL MCH (25.0-35.0) pg MCHC (31.0-37.0) g/dL RDW (11.5-15.5) % Plt Count (150-450) k/uL MPV Neutrophils % % Lymphocytes % % Monocytes % % Eosinophils % % Basophils % % Neutrophils # (1.3-7.7) k/uL Lymphocytes # (1.0-4.8) k/uL Monocytes # (0-1.0) k/uL Eosinophils # (0-0.7) k/uL Basophils # (0-0.2) k/uL Sodium (137-145) mmol/L Potassium (3.5-5.1) mmol/L Chloride (98-107) mmol/L Carbon Dioxide (22-30) mmol/L Anion Gap mmol/L BUN (7-17) mg/dL Creatinine (0.52-1.04) mg/dL Est GFR (CKD-EPI)AfAm (>60 ml/min/1.73 sqM) Est GFR (CKD-EPI)NonAf (>60 ml/min/1.73 sqM) Glucose (74-99) mg/dL Calcium (8.4-10.2) mg/dL Total Bilirubin (0.2-1.3) mg/dL AST (14-36) U/L ALT (4-34) U/L Alkaline Phosphatase (38-126) U/L Total Protein (6.3-8.2) g/dL Albumin (3.5-5.0) g/dL Urine Color Lizet Urine Appearance Clear (Clear) Urine pH 7.0 (5.0-8.0) Ur Specific [place] 1.015 (1.001-1.035) Urine Protein Negative (Negative) Urine Glucose (UA) Negative (Negative) Urine Ketones Negative (Negative) Urine Blood Negative (Negative) Urine Nitrite Negative (Negative) Urine Bilirubin Negative (Negative) Urine Urobilinogen <2.0 (<2.0) mg/dL Ur Leukocyte Esterase Negative (Negative) Urine HCG, Qual Not Detected (Not Detectd) Urine Opiates Screen Not Detected (NotDetected) Ur Oxycodone Screen Not Detected (NotDetected) Urine Methadone Screen Not Detected (NotDetected) Ur Propoxyphene Screen Not Detected (NotDetected) Ur Barbiturates Screen Not Detected (NotDetected) U Tricyclic Antidepress Not Detected (NotDetected) Ur Phencyclidine Scrn Not Detected (NotDetected) Ur Amphetamines Screen Not Detected (NotDetected) U Methamphetamines Scrn Not Detected (NotDetected) U Benzodiazepines Scrn Not Detected (NotDetected) Urine Cocaine Screen Not Detected (NotDetected) U Marijuana (THC) Screen Not Detected (NotDetected) SARS-CoV-2 (PCR) (Not Detectd) 06/29/23 06/29/23 06/29/23 Range/Units 16:28 16:28 16:48 WBC 7.2 (3.8-10.6) k/uL RBC 4.73 (3.80-5.40) m/uL Hgb 13.3 (11.4-16.0) gm/dL Hct 39.1 (34.0-46.0) % MCV 82.7 (80.0-100.0) fL MCH 28.2 (25.0-35.0) pg MCHC 34.1 (31.0-37.0) g/dL RDW 12.8 (11.5-15.5) % Plt Count 217 (150-450) k/uL MPV 7.7 Neutrophils % 61 % Lymphocytes % 30 % Monocytes % 5 % Eosinophils % 1 % Basophils % 0 % Neutrophils # 4.4 (1.3-7.7) k/uL Lymphocytes # 2.2 (1.0-4.8) k/uL Monocytes # 0.3 (0-1.0) k/uL Eosinophils # 0.1 (0-0.7) k/uL Basophils # 0.0 (0-0.2) k/uL Sodium 136 L (137-145) mmol/L Potassium 4.3 (3.5-5.1) mmol/L Chloride 102 (98-107) mmol/L Carbon Dioxide 22 (22-30) mmol/L Anion Gap 12 mmol/L BUN 15 (7-17) mg/dL Creatinine 0.57 (0.52-1.04) mg/dL Est GFR (CKD-EPI)AfAm >90 (>60 ml/min/1.73 sqM) Est GFR (CKD-EPI)NonAf >90 (>60 ml/min/1.73 sqM) Glucose 96 (74-99) mg/dL Calcium 9.2 (8.4-10.2) mg/dL Total Bilirubin 0.5 (0.2-1.3) mg/dL AST 30 (14-36) U/L ALT 24 (4-34) U/L Alkaline Phosphatase 91 (38-126) U/L Total Protein 7.3 (6.3-8.2) g/dL Albumin 4.1 (3.5-5.0) g/dL Urine Color Urine Appearance (Clear) Urine pH (5.0-8.0) Ur Specific [place] (1.001-1.035) Urine Protein (Negative) Urine Glucose (UA) (Negative) Urine Ketones (Negative) Urine Blood (Negative) Urine Nitrite (Negative) Urine Bilirubin (Negative) Urine Urobilinogen (<2.0) mg/dL Ur Leukocyte Esterase (Negative) Urine HCG, Qual (Not Detectd) Urine Opiates Screen (NotDetected) Ur Oxycodone Screen (NotDetected) Urine Methadone Screen (NotDetected) Ur Propoxyphene Screen (NotDetected) Ur Barbiturates Screen (NotDetected) U Tricyclic Antidepress (NotDetected) Ur Phencyclidine Scrn (NotDetected) Ur Amphetamines Screen (NotDetected) U Methamphetamines Scrn (NotDetected) U Benzodiazepines Scrn (NotDetected) Urine Cocaine Screen (NotDetected) U Marijuana (THC) Screen (NotDetected) SARS-CoV-2 (PCR) Not Detected (Not Detectd) Disposition Clinical Impression: Depression, Suicidal ideation, Bipolar disorder Disposition: TRANSFER TO PSYCH HOSP/UNIT Time of Disposition: 16:14
[2023-06-29 14:59] LABS: Amphetamine Screen,Urine Not Detected (NotDetected); Barbiturate Screen,Urine Not Detected (NotDetected); Benzodiazepines Screen,Urine Not Detected (NotDetected); Cocaine Screen,Urine Not Detected (NotDetected); Methadone Screen, Urine Not Detected (NotDetected); Opiate Screen,Urine Not Detected (NotDetected); Oxycodone Screen, Urine Not Detected (NotDetected); Phencyclidine Screen,Urine Not Detected (NotDetected); Tricyclic Antidepressant,Urine Not Detected (NotDetected); Urn Cannabinoid Scrn Not Detected (NotDetected)
[2023-06-29 16:48] LABS: Basophils % (A) 0 %; Eosinophils # (A) 0.1 k/uL (0-0.7); Eosinophils % (A) 1 %; HCT 39.1 % (34.0-46.0); HGB 13.3 gm/dL (11.4-16.0); Lymphocytes # (A) 2.2 k/uL (1.0-4.8); Lymphocytes % (A) 30 %; MCH 28.2 pg (25.0-35.0); MCHC 34.1 g/dL (31.0-37.0); MCV 82.7 fL (80.0-100.0); Mean Platelet Volume 7.7; Monocytes # (A) 0.3 k/uL (0-1.0); Monocytes % (A) 5 %; Neutrophils # (A) 4.4 k/uL (1.3-7.7); Neutrophils % (A) 61 %; Platelet Count 217 k/uL (150-450); RBC 4.73 m/uL (3.80-5.40); RDW 12.8 % (11.5-15.5); WBC 7.2 k/uL (3.8-10.6)
[2023-06-29 17:14] LABS: ALT 24 U/L (4-34); AST 30 U/L (14-36); African American GFR (CKD) >90 (>60 ml/min/1.73 sqM); Albumin 4.1 g/dL (3.5-5.0); Alkaline Phosphatase 91 U/L (38-126); Anion Gap 12 mmol/L; Blood Urea Nitrogen 15 mg/dL (7-17); Calcium 9.2 mg/dL (8.4-10.2); Carbon Dioxide 22 mmol/L (22-30); Chloride 102 mmol/L (98-107); Glucose 96 mg/dL (74-99); Non-African American GFR(CKD) >90 (>60 ml/min/1.73 sqM); Potassium 4.3 mmol/L (3.5-5.1); Sodium 136 mmol/L (137-145); Total Bilirubin 0.5 mg/dL (0.2-1.3); Total Protein 7.3 g/dL (6.3-8.2)
[2023-06-29 18:01] LABS: Appearance,Urine Clear (Clear); Color,Urine Amber
[2023-06-29 18:02] LABS: Bilirubin,Urine Negative (Negative); Blood,Urine Negative (Negative); Glucose,Urine (UA) Negative (Negative); Ketones,Urine Negative (Negative); Leukocyte Esterase,Urine Negative (Negative); Nitrite,Urine Negative (Negative); Protein,Urine Negative (Negative); Specific Gravity,Urine 1.015 (1.001-1.035); Urobilinogen,Urine <2.0 mg/dL (<2.0)
[2023-06-29] MEDS ORDERED: MAG HYDROX/AL HYDROX/SIMETH 30 ML CUP PO PRN (20:42)
[2023-06-29] MEDS ORDERED: hydrOXYzine HCL 25 MG TAB PO PRN (20:42)
[2023-06-29] MEDS ORDERED: MAGNESIUM HYDROXIDE 2,400 MG/30 ML CUP PO PRN (20:42)
[2023-06-29] MEDS ORDERED: haloperidoL 5 MG TAB PO PRN (20:42)
[2023-06-29] MEDS ORDERED: HALOPERIDOL LACTATE 5 MG/ML 1 ML VIAL IM PRN (20:42)
[2023-06-29] MEDS ORDERED: ARIPiprazole 10 MG TAB PO SCH (21:00)
[2023-06-30] MEDS: NICOTINE 14MG/24HR PATCH TRANSDERM SCH (08:42)
[2023-06-30] MEDS: lamoTRIgine 25 MG TAB PO SCH ×2 (10:19→20:40)
[2023-06-30] MEDS: ARIPiprazole 10 MG TAB PO SCH (10:19)
--- NOTE | 2023-06-30 10:27 | P.HP ---
Psychiatric H&P - . H&P Date: 06/30/23 History & Physical: Allergies Allergy/AdvReac Type Severity Reaction Status Date / Time lorazepam [From Ativan] AdvReac Hallucinati Verified 06/29/23 16:48 ons Vital Signs Temp 97.7 F 06/29/23 22:22 Pulse 83 06/30/23 06:58 Resp 18 06/30/23 06:58 BP 138/79 06/30/23 06:58 Pulse Ox 97 06/29/23 22:22 FiO2 Intake & Output 06/29/23 06/30/23 06/30/23 18:59 06:59 18:59 Weight 136.622 kg 137.58 kg Laboratory Last Values WBC 7.2 k/uL (3.8-10.6) 06/29/23 16:28 RBC 4.73 m/uL (3.80-5.40) 06/29/23 16:28 Hgb 13.3 gm/dL (11.4-16.0) 06/29/23 16:28 Hct 39.1 % (34.0-46.0) 06/29/23 16:28 MCV 82.7 fL (80.0-100.0) 06/29/23 16:28 MCH 28.2 pg (25.0-35.0) 06/29/23 16:28 MCHC 34.1 g/dL (31.0-37.0) 06/29/23 16:28 RDW 12.8 % (11.5-15.5) 06/29/23 16:28 Plt Count 217 k/uL (150-450) 06/29/23 16:28 MPV 7.7 06/29/23 16:28 Neutrophils % 61 % 06/29/23 16:28 Lymphocytes % 30 % 06/29/23 16:28 Monocytes % 5 % 06/29/23 16:28 Eosinophils % 1 % 06/29/23 16:28 Basophils % 0 % 06/29/23 16:28 Neutrophils # 4.4 k/uL (1.3-7.7) 06/29/23 16:28 Lymphocytes # 2.2 k/uL (1.0-4.8) 06/29/23 16:28 Monocytes # 0.3 k/uL (0-1.0) 06/29/23 16:28 Eosinophils # 0.1 k/uL (0-0.7) 06/29/23 16:28 Basophils # 0.0 k/uL (0-0.2) 06/29/23 16:28 Sodium 136 mmol/L (137-145) L 06/29/23 16:28 Potassium 4.3 mmol/L (3.5-5.1) 06/29/23 16:28 Chloride 102 mmol/L (98-107) 06/29/23 16:28 Carbon Dioxide 22 mmol/L (22-30) 06/29/23 16:28 Anion Gap 12 mmol/L 06/29/23 16:28 BUN 15 mg/dL (7-17) 06/29/23 16:28 Creatinine 0.57 mg/dL (0.52-1.04) 06/29/23 16:28 Est GFR (CKD-EPI)AfAm >90 (>60 ml/min/1.73 sqM) 06/29/23 16:28 Est GFR (CKD-EPI)NonAf >90 (>60 ml/min/1.73 sqM) 06/29/23 16:28 Glucose 96 mg/dL (74-99) 06/29/23 16:28 Calcium 9.2 mg/dL (8.4-10.2) 06/29/23 16:28 Total Bilirubin 0.5 mg/dL (0.2-1.3) 06/29/23 16:28 AST 30 U/L (14-36) 06/29/23 16:28 ALT 24 U/L (4-34) 06/29/23 16:28 Alkaline Phosphatase 91 U/L (38-126) 06/29/23 16:28 Total Protein 7.3 g/dL (6.3-8.2) 06/29/23 16:28 Albumin 4.1 g/dL (3.5-5.0) 06/29/23 16:28 Urine Color Lizet 06/29/23 16:14 Urine Appearance Clear (Clear) 06/29/23 16:14 Urine pH 7.0 (5.0-8.0) 06/29/23 16:14 Ur Specific [place] 1.015 (1.001-1.035) 06/29/23 16:14 Urine Protein Negative (Negative) 06/29/23 16:14 Urine Glucose (UA) Negative (Negative) 06/29/23 16:14 Urine Ketones Negative (Negative) 06/29/23 16:14 Urine Blood Negative (Negative) 06/29/23 16:14 Urine Nitrite Negative (Negative) 06/29/23 16:14 Urine Bilirubin Negative (Negative) 06/29/23 16:14 Urine Urobilinogen <2.0 mg/dL (<2.0) 06/29/23 16:14 Ur Leukocyte Esterase Negative (Negative) 06/29/23 16:14 Urine HCG, Qual Not Detected (Not Detectd) 06/29/23 16:14 Urine Opiates Screen Not Detected (NotDetected) 06/29/23 14:34 Ur Oxycodone Screen Not Detected (NotDetected) 06/29/23 14:34 Urine Methadone Screen Not Detected (NotDetected) 06/29/23 14:34 Ur Propoxyphene Screen Not Detected (NotDetected) 06/29/23 14:34 Ur Barbiturates Screen Not Detected (NotDetected) 06/29/23 14:34 U Tricyclic Antidepress Not Detected (NotDetected) 06/29/23 14:34 Ur Phencyclidine Scrn Not Detected (NotDetected) 06/29/23 14:34 Ur Amphetamines Screen Not Detected (NotDetected) 06/29/23 14:34 U Methamphetamines Scrn Not Detected (NotDetected) 06/29/23 14:34 U Benzodiazepines Scrn Not Detected (NotDetected) 06/29/23 14:34 Urine Cocaine Screen Not Detected (NotDetected) 06/29/23 14:34 U Marijuana (THC) Screen Not Detected (NotDetected) 06/29/23 14:34 SARS-CoV-2 (PCR) Not Detected (Not Detectd) 06/29/23 16:48 IDENTIFYING DATA: Patient is a 37-year-old female, works at [employer] part-time, also on disability, , 2 children, 2 step children, lives in a house with , children there on the weekends.. HPI: Patient presented to the hospital ED on 06/29 with . As per EPS note ".brought in by due to increased SI w no plan. Cl reports racing thoughts, depression, crying spells, irritability, mood swings, broken sleep, 2- 4 hrs a night for last 2 weeks, hopeless, overwhelemed, loss of interest" Upon todays interview, patient states that feels mechelle is not working for her, and she can't get into [facility] fast enough for a med adjustment. She came in because she's manic, has crying spells, and can't sleep at night. Easily irritated. States her appetite fluctuates. She states that she has not been compliant with her medications, and hasn't taken them daily as directed. Patient states currently she is not feeling depressed, but her anxiety is 'pretty bad'.She admitted herself to get stabilized on her medications. Patient counseled on the need to be compliant with medications. Patient agreeable. she states that her mood is labile, having crying spells, depression and severe anxiety. she claims that she is not doing well at this time and having issues at home and also her workplace. Patient denies any suicidal or homicidal ideations intent or plan. At this time patient denies any auditory or visual hallucinations. Patient admitts to having flight of ideas racing thoughts and increased in goal directed behavior. Patient admits to using marijuana., however UDS was negative. Patient is a smoker, and states she is a social drinker.patient on suboxone, had an opiate addiction, PAST PSYCHIATRIC HISTORY: Patient on Abilify.was seeing Dr Johnson via telehealth at [facility]. Patient states she missed her appointments, so she is cur rently closed at [facility]. Patient was admitted to this U in 2020. Patient states when she was 12, she took too many tylenol in an OD, and had to drink 'the charcoal efren" PMH: as per ED note ALLERGIES: as per EMR CHEMICAL DEPENDENCY HISTORY: as per HPI FAMILY PSYCHIATRIC: denies SOCIAL HISTORY: Patient was born and raised in [place]. Completed through grade 11. Patient was incarcerated in 2004 for retail fraud. Patient is , and lives in a house with her . Has her children on the weekends. 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 directable, and attempts to cooperate. Patient appears to have fair hygiene and grooming. Behavior: Patient is seated without any agitated behavior. Drowsy Speech: Patient's speech is fluent and nonpressured. concrete. Mood/Affect: Patient reports their mood is anxious, affect is congruent and constricted. Flat. Suicidality/Homicidality: Patient denies having any homicidal ideation intent or plan. Denies any suicidal ideations intent or plan Perceptions: Patient denies any visual hallucinations and denies any auditory hallucinations. Though content/process: There is no evidence of any delusional thought content and thought process is linear and goal-directed. Mildly Guarded Memory and concentration: AOX3, grossly intact for the purposes of this session. Can spell "WORLD" backwards Judgment and insight: poor STRENGTHS/WEAKNESSES: strength is that patient is resilient. Weakness is that patient has poor judgment and non compliant with meds. INTELLECT: average IMPRESSIONS: Bipolar disorder type I, current mixed episode Anxiety disorder unspecified Cannabis use disorder Opioid dependence Nicotine dependence PLAN: -Patient is admitted under [voluntary] status to MHU for stabilization of psychiatric symptoms and safety. Patient has signed adult voluntary form and medication consent and is placed in patient's chart. -Medications : Will start patient on Abilify 10 mg qd for mood stabilization, Lamictal 25mg bid for mood stabilization/depression. counseled patient to monitor for a rash, and to let nursing staff know if she notices it. trazadone 50mg qhs for sleep Visteral 25mg prn q6 hours for anxiety. Continue with home dose suboxone, 8/2mg bid for opiod use disorder -Ativan [and Haldol] PRN for agitation/aggression -Patient was counselled on substance abuse and desired to cut back on use] -Patient was informed of the risks, benefits and side effects of the medication and patient verbally consented to taking the medications. Patient signed med consent form and was placed in chart. -Internal Medicine consult to perform medical evaluation and physical. -NRT - nicotine patch -SW on board for discharge planning. Encourage patient to participate in groups to work on coping skills. 06/30/23 09:54 06/30/23 10:23
[2023-06-30 16:37] LABS: Chol/HDL Ratio 3.31 Ratio; LDL Cholesterol,Calculated 87.3 mg/dL (0.0-131.0)
[2023-06-30] MEDS: NON FORMULARY DRUG (Buprenorphine Hcl/Naloxone Hcl [Suboxone 8 Mg-2 Mg Sl Film] 1 FILM) PO SCH (17:50)
[2023-06-30] MEDS: ALBUTEROL INHALER 60 PUFF/8 GM INHALER (MHU) INHALATION PRN ×2 (18:19→20:42)
[2023-06-30] MEDS: traZODone HCL 50 MG TAB PO SCH (20:40)
[2023-06-30] MEDS: hydrOXYzine pamoate 25 MG CAP PO PRN (20:41)
[2023-07-01] MEDS: lamoTRIgine 25 MG TAB PO SCH ×3 (09:46→20:36)
[2023-07-01] MEDS: ARIPiprazole 10 MG TAB PO SCH (09:46)
[2023-07-01] MEDS: NICOTINE 14MG/24HR PATCH TRANSDERM SCH (09:46)
[2023-07-01] MEDS: NON FORMULARY DRUG (Buprenorphine Hcl/Naloxone Hcl [Suboxone 8 Mg-2 Mg Sl Film] 1 FILM) PO SCH (09:57)
[2023-07-01] MEDS: ALBUTEROL INHALER 60 PUFF/8 GM INHALER (MHU) INHALATION PRN ×3 (10:00→20:38)
--- NOTE | 2023-07-01 11:41 | P.PN ---
Progress Note - Text Progress Note Date: 07/01/23 Interval History: Patient was seen wandering the hallways and was directable and agreeable to speak with loan underwriter in the office. Patient states she's feeling better today, and appears to be less drowsy. Patient states that she slept really good last ngiht. Patient states her mood/anxiety is improving, and that she has a good appetite. Asked patient about monitoring for a rash, from Lamictal, she verbalized that she is not noticing anything at this time. Will continue to m onitor. Talked to patient about taking a SWANSON, due to her noncomplience with meds, and patient willing to take the injection.. At this time patient denies any suicidal or homical ideations, intent or plan. Patient denies any auditory, visual hallucinations and denies any paranoia or delusions. Patient denies any side effects from the medications and has been compliant with meds. MENTAL STATUS EXAM: General Appearance: Patient appears to be stated age is alert, Patient is overweight, has long dark hair, glasses, multiple tattoos. directable, and attempts to cooperate. Patient appears to have fair hygiene and grooming. Behavior: Patient is seated without any agitated behavior. Speech: Patient's speech is fluent and nonpressured. concrete.improving mildly Mood/Affect: Patient reports their mood is anxious, affect is congruent and constricted. Suicidality/Homicidality: Patient denies having any homicidal ideation intent or plan. Denies any suicidal ideations intent or plan Perceptions: Patient denies any visual hallucinations and denies any auditory hallucinations. Though content/process: There is no evidence of any delusional thought content and thought process is linear and goal-directed. Mildly Guarded improving mildly Memory and concentration: AOX3, grossly intact for the purposes of this session. Judgment and insight: poor mildly improving IMPRESSIONS: Bipolar disorder type I, current mixed episode Anxiety disorder unspecified Cannabis use disorder Opioid dependence Nicotine dependence PLAN: -Patient is admitted under voluntary status to MHU for stabilization of psychiatric symptoms and safety. Patient has signed adult voluntary form and medication consent and is placed in patient's chart. -Medications : Abilify 10mg qd for mood stabilization, add Ablilify SWANSON 400mg IM to ensure compliance, starting 07/02 for mood stabilization, next dose will be due on 07/29/22, Increase Lamictal 25mg tid for mood stabilization/depression. counseled patient to monitor for a rash, and to let nursing staff know if she notices it. trazadone 50mg qhs for sleep Visteral 25mg prn q6 hours for anxiety. Continue with home dose suboxone, 8/2mg bid for opiod use disorder. -Ativan and Haldol PRN for agitation/aggression -NRT - nicotine patch -SW on board for discharge planning. Encourage patient to participate in groups to work on coping skills. Likely d/c Tuesday, if patient continues to improve
[2023-07-01] MEDS: hydrOXYzine pamoate 25 MG CAP PO PRN (17:37)
[2023-07-01] MEDS: traZODone HCL 50 MG TAB PO SCH (20:36)
--- NOTE | 2023-07-02 02:23 | CONS ---
CONSULTATION CHIEF COMPLAINT: Major depression. HISTORY OF PRESENT ILLNESS: This lady presented to the emergency room with major depression. She states that she felt that her psych medications were not working. We have not seen her in the office since December. She had basically been dismissed from the practice because of violating her drug contract. She had been on Suboxone, but we were not giving her any more schedule to drugs, it looks as though she is still on it from someone. REVIEW OF SYSTEMS: She denies any headaches, chest pain, shortness of breath, abdominal pain, nausea, vomiting, GI or complaints, etc. Past medical history, family history and personal and social histories can be found in her admitting summary. PHYSICAL EXAMINATION: VITAL SIGNS: Blood pressure 126/72, pulse of 83, respirations 14. She is afebrile. GENERAL: She appeared to be overweight and in no acute distress. SKIN: Color is normal. Skin is warm, dry. LYMPHATICS: Lymph nodes are not enlarged. HEENT: Head, ears, eyes, nose, mouth and throat were normal. NECK: Veins are not distended. Thyroid is enlarged. CHEST: Clear. CARDIAC: Normal. ABDOMEN: Soft and protuberant. EXTREMITIES: Normal. NEUROLOGICAL: She is intact. DIAGNOSES: She is admitted with a diagnoses, 1. Depression. 2. History of substance abuse. RECOMMENDATIONS: None. MMODL / IJN: [id number] /
[2023-07-02] MEDS: NICOTINE 21MG/24HR PATCH TRANSDERM SCH (08:18)
[2023-07-02] MEDS: ARIPiprazole 10 MG TAB PO SCH (08:18)
[2023-07-02] MEDS: lamoTRIgine 25 MG TAB PO SCH ×3 (08:18→20:37)
[2023-07-02] MEDS ORDERED: NICOTINE GUM (POLACRILEX) 2 MG GUM BUCCAL PRN (11:12)
[2023-07-02] MEDS: hydrOXYzine pamoate 25 MG CAP PO PRN ×2 (11:35→17:53)
[2023-07-02] MEDS ORDERED: ARIPiprazole IM SYRINGE 400 MG (NO CHARGE) PHARMACY STOCK IM ONE (12:00)
--- NOTE | 2023-07-02 12:41 | P.PN ---
Progress Note - Text Progress Note Date: 07/02/23 Interval History: The patient was seen today as coverage for Dr. Gant. Their chart was reviewed, and the case was discussed with the nursing staff. The patient reports fair sleep and appetite. The patient has been participating in groups and other unit activities. The patient has been taking their psychiatric medications and denies side effects. The patient reports feeling more stable mentally and denies suicidal or homicidal ideation. There are no reports of delusions, manic symptoms, or hallucinations. The patient reports having increased anxiety today because she is around other people. The patient reports her mood is stable and feels less depressed. She denies bout of anger, agitation or severe mood swings. Pt reports fair sleep and appetite. The patient denies any suicidal or homicidal ideation and no delusions could be elicited. She reports since Lamictal dose was increased to 3 times daily and she feels more drowsy. The nursing report that patient has a visitor earlier today who attempted to smuggle in unidentified pills, and nursing staff secured those pills. Mental Status Examination: Appearance: Appears stated age, fairly groomed, average body built, and no specific features. Gait/ posture: steady gait, normal arm swinging, no abnormal movements. Attitude and Behavior: Engaged, cooperative, maintained eye contact during course of interview. Motor Activity: normal psychomotor activity. Speech: Normal rate, rhythm, articulation, and prosody. None pressured. Mood: " anxious Affect: stable, reactive, congruent to mood, appropriate to context and situation. Thought form: Goal directed, linear, and relevant, not incoherent and no clang association. Association: intact Thought content: Logical, non-delusional, denies suicidal, homicidal thoughts, intentions, or plans. Perception: Denies any auditory/ visual or tactile hallucinations. Attention: No impairment. Orientation: Oriented to time, place, person, and situation. Insight & Judgment: limited Impulse control: impaired IMPRESSIONS: Bipolar disorder type I, current mixed episode Anxiety disorder unspecified Cannabis use disorder Opioid dependence Nicotine dependence Treatment plan: Continue inpatient psychiatric hospitalization. Implement the following precautions as recommended by the admitting psychiatrist: suicide and elopement Consult the medical team immediately if any medical concerns arise. Educate the patient on the benefits of participating in groups and other unit activities and encourage active participation. Lab work ordered: None Medications: Abilify 10mg qd for mood stabilization, Ablilify SWANSON 400mg IM to ensure compliance, starting today, next dose will be due on 07/29/22, Decrease Lamictal 25mg TID for mood stabilization/depression. The patient was educated to continue monitor dizziness and if not resolved will consider Trazadone 50mg qhs for sleep Visteral 25mg prn q6 hours for anxiety. Continue with home dose suboxone, 8/2mg bid for opiod use disorder. -Ativan and Haldol PRN for agitation/aggression -NRT - nicotine patch Discharge planning is ongoing
[2023-07-02] MEDS: ACETAMINOPHEN TAB 325 MG TAB PO PRN (19:28)
[2023-07-02] MEDS: ALBUTEROL INHALER 60 PUFF/8 GM INHALER (MHU) INHALATION PRN (19:29)
[2023-07-02] MEDS: traZODone HCL 50 MG TAB PO SCH (20:37)
[2023-07-02] MEDS: IBUPROFEN 600 MG TAB PO PRN (20:38)
[2023-07-03] MEDS: NICOTINE 21MG/24HR PATCH TRANSDERM SCH (09:03)
[2023-07-03] MEDS: lamoTRIgine 25 MG TAB PO SCH ×2 (09:03→20:32)
[2023-07-03] MEDS: ARIPiprazole 10 MG TAB PO SCH (09:03)
[2023-07-03] MEDS: ACETAMINOPHEN TAB 325 MG TAB PO PRN (10:00)
[2023-07-03] MEDS: IBUPROFEN 600 MG TAB PO PRN (12:43)
--- NOTE | 2023-07-03 14:59 | P.PN ---
Progress Note - Text Progress Note Date: 07/03/23 Interval History: The patient was seen today as coverage for Dr. Gant. Their chart was reviewed, and the case was discussed with the nursing staff. The patient reports is still feeling drowsy and she couldn't tolerate taking Lamictal 3 times a day daily. She reports noticed drowsiness after that was increased to 3 times daily. The patient reports feeling stable emotionally and denies symptoms of depression, hopelessness, or having suicidal ideation. She denies swings, irritability, agitation, or homicidal thoughts. No reports of delusions, hallucinations, paranoid ideation, or delusions. The patient reports taking her psychotropic medications and denies side effects besides drowsiness. We discussed to decrease Lamictal to 25 mg twice daily. The patient reports fair sleep and appetite. Mental Status Examination: Appearance: Appears stated age, fairly groomed, average body built, and no specific features. Gait/ posture: steady gait, normal arm swinging, no abnormal movements. Attitude and Behavior: Engaged, cooperative, maintained eye contact during course of interview. Motor Activity: normal psychomotor activity. Speech: Normal rate, rhythm, articulation, and prosody. None pressured. Mood: " anxious Affect: stable, reactive, congruent to mood, appropriate to context and situation. Thought form: Goal directed, linear, and relevant, not incoherent and no clang association. Association: intact Thought content: Logical, non-delusional, denies suicidal, homicidal thoughts, intentions, or plans. Perception: Denies any auditory/ visual or tactile hallucinations. Attention: No impairment. Orientation: Oriented to time, place, person, and situation. Insight & Judgment: limited Impulse control: impaired IMPRESSIONS: Bipolar disorder type I, current mixed episode Anxiety disorder unspecified Cannabis use disorder Opioid dependence Nicotine dependence Treatment plan: Continue inpatient psychiatric hospitalization. Implement the following precautions as recommended by the admitting psychiatrist: suicide and elopement Consult the medical team immediately if any medical concerns arise. Educate the patient on the benefits of participating in groups and other unit activities and encourage active participation. Lab work ordered: None Medications: Abilify 10mg qd for mood stabilization, Ablilify SWANSON 400mg IM to ensure compliance, started 07/02/23, next dose will be due on 07/29/22, Decrease Lamictal 25mg bid for mood stabilization/depression. The patient reports increased the dose to 3 times a day daily causes drowsiness Trazadone 50mg qhs for sleep Visteral 25mg prn q6 hours for anxiety. Continue with home dose suboxone, 8/2mg bid for opiod use disorder. -Ativan and Haldol PRN for agitation/aggression -NRT - nicotine patch Discharge planning is ongoing
[2023-07-03] MEDS: ALBUTEROL INHALER 60 PUFF/8 GM INHALER (MHU) INHALATION PRN (17:22)
[2023-07-03] MEDS: traZODone HCL 50 MG TAB PO SCH (20:32)
[2023-07-03] MEDS: hydrOXYzine pamoate 25 MG CAP PO PRN (20:32)
[2023-07-04] MEDS: NICOTINE 21MG/24HR PATCH TRANSDERM SCH (08:44)
[2023-07-04] MEDS: ARIPiprazole 10 MG TAB PO SCH (08:45)
[2023-07-04] MEDS: lamoTRIgine 25 MG TAB PO SCH ×2 (08:45→20:23)
[2023-07-04] MEDS: BUPRENORPHINE-NALOX 8-2 MG TAB 1 EACH TAB.SUBL SL SCH ×3 (08:46→17:53)
[2023-07-04 08:59] VITALS: RESP 16
--- NOTE | 2023-07-04 11:54 | P.PN ---
Progress Note - Text Progress Note Date: 07/04/23 Interval History: Patient was seen wandering the hallways and was directable and agreeable to speak with teletypewriter operator in the office. Patient states she's feeling good today. Patient states that she slept really good last ngiht. Patient states her mood/anxiety is much better, and that she has a good appetite. States she's feeling a little anxious being in here. Patient doing well from receiving her SWANSON, with no complaints. At this time patient denies any suicidal or homical ideations, intent or plan. Patient denies any auditory, visual hallucinations and denies any paranoia or delusions. Patient denies any side effects from the medications and has been compliant with meds. focused on discharge MENTAL STATUS EXAM: General Appearance: Patient appears to be stated age is alert, Patient is overweight, has long dark hair, glasses, multiple tattoos. directable, and attempts to cooperate. Patient appears to have fair hygiene and grooming. Behavior: Patient is seated without any agitated behavior. Speech: Patient's speech is fluent and nonpressured. concrete.improving mildly Mood/Affect: Patient reports their mood is good, affect is congruent and constricted. improving Suicidality/Homicidality: Patient denies having any homicidal ideation intent or plan. Denies any suicidal ideations intent or plan Perceptions: Patient denies any visual hallucinations and denies any auditory hallucinations. Though content/process: There is no evidence of any delusional thought content and thought process is linear and goal-directed. improving mildly Memory and concentration: AOX3, grossly intact for the purposes of this session. Judgment and insight: improving IMPRESSIONS: Bipolar disorder type I, current mixed episode Anxiety disorder unspecified Cannabis use disorder Opioid dependence Nicotine dependence PLAN: -Patient is admitted under voluntary status to [facility] for stabilization of psychiatric symptoms and safety. Patient has signed adult voluntary form and medication consent and is placed in patient's chart. -Medications : Abilify 10mg qd for mood stabilization, end date will be 07/16, Lamictal 25mg bid for mood stabilization/depression. counseled patient to monitor for a rash, and to let nursing staff know if she notices it. trazadone 50mg qhs for sleep Visteral 25mg prn q6 hours for anxiety. Continue with home dose suboxone 8/2mg bid for opiod use disorder. Abilify Maintena 400mg IM given on 07/02, next dose / -Ativan and Haldol PRN for agitation/aggression -NRT - nicotine patch -SW on board for discharge planning. Encourage patient to participate in groups to work on coping skills. Likely d/c tomorrow, if patient continues to improve
[2023-07-04] MEDS: hydrOXYzine pamoate 25 MG CAP PO PRN ×2 (12:15→20:24)
[2023-07-04] MEDS: IBUPROFEN 600 MG TAB PO PRN ×2 (12:16→20:24)
[2023-07-04] MEDS: traZODone HCL 50 MG TAB PO SCH (20:23)
[2023-07-05] MEDS: ARIPiprazole 10 MG TAB PO SCH (08:01)
[2023-07-05] MEDS: BUPRENORPHINE-NALOX 8-2 MG TAB 1 EACH TAB.SUBL SL SCH ×2 (08:01→12:20)
[2023-07-05] MEDS: lamoTRIgine 25 MG TAB PO SCH (08:01)
[2023-07-05] MEDS: NICOTINE 21MG/24HR PATCH TRANSDERM SCH (08:01)
[2023-07-05 08:08] VITALS: BP 135/63; PULSE 70; TEMP 96.8
--- NOTE | 2023-07-05 09:43 | P.DS ---
Providers Date of admission: 06/29/23 20:31 Expected date of discharge: 07/05/23 Attending physician: Iván Gant MD Consults: 06/29/23 20:42 Consult Physician Routine Consulting Provider: Vipin Wilkes Consult Reason/Comments: H&P for mental health admission Do you want consulting provider notified?: Yes, Notify in am Primary care physician: Vipin Wilkes - Discharge Diagnosis(es) (1) Bipolar disorder, curr episode mixed, severe, w/o psychotic features Current Visit: Yes Status: Acute (2) Anxiety disorder Current Visit: Yes Status: Acute Priority: High (3) Cannabis use disorder Current Visit: Yes Status: Acute Priority: High (4) Opioid dependence Current Visit: Yes Status: Acute Priority: Medium (5) Nicotine dependence Current Visit: Yes Status: Acute Priority: Low Hospital Course: Admission HPI: Admission note was completed by residential mortgage underwriter "Patient presented to the hospital ED on 06/29 with . As per EPS note ".brought in by due to increased SI w no plan. Cl reports racing thoughts, depression, crying spells, irritability, mood swings, broken sleep, 2-4 hrs a night for last 2 weeks, hopeless, overwhelemed, loss of interest" Upon todays interview, patient states that feels abilify is not working for her, and she can't get into [facility] fast enough for a med adjustment. She came in because she's manic, has crying spells, and can't sleep at night. Easily irritated. States her appetite fluctuates. She states that she has not been compliant with her medications, and hasn't taken them daily as directed. Patient states currently she is not feeling depressed, but her anxiety is 'pretty bad'.She admitted herself to get stabilized on her medications. Patient counseled on the need to be compliant with medications. Patient agreeable. she states that her mood is labile, having crying spells, depression and severe anxiety. she claims that she is not doing well at this time and having issues at home and also her workplace. Patient denies any suicidal or homicidal ideations intent or plan. At this time patient denies any auditory or visual hallucinations. Patient admitts to having flight of ideas racing thoughts and increased in goal directed behavior. Patient admits to using marijuana., however UDS was negative. Patient is a smoker, and states she is a social drinker.patient on suboxone, had an opiate addiction" Hospital course: Upon admission to the unit patient was directable and agreeable to commence treatment and signed adult voluntary form. Patient got along well with other patients on the unit and followed unit protocol. Patient was compliant with the medications and denied any side effects throughout hospital course. Patient was started on Abilify by mouth and increased her dose of 10 mg daily for mood stabilization. Patient was transitioned onto Abilify Maintenna 400 mg IM given on 07/02, next dose will be due on 07/29. Lamictal was started at 25 mg twice a day for mood stabilization/depression. Trazodone 50 mg daily at bedtime for sleep, Vistaril when necessary for anxiety. Patient was restarted back on her home dose of Suboxone. Patient spoke of her stressors and engaged in therapy both group and individual. Patient was also seen by medical team for history and physical exam. Throughout the course of the hospitalization patient gradually improved with regards to mood, anxiety, sleep and returned back to their baseline level of functioning. On the day of discharge patient denied any suicidal or homicidal ideations intent or plan denied any auditory or visual hallucinations. Patient endorsed wanting to live for her health and her family. The patient denied any access to guns or weapons. Patient denied any paranoia and did not endorse any delusions. Patient does have a significant history of substance abuse and was counseled on abstaining from all substances including alcohol and marijuana. Patient was offered however declined inpatient substance- abuse rehab. Patient elected to do outpatient substance use treatment program through [facility]. Patient was also counseled on the medications and need for regular compliance and was encouraged to follow-up with their outpatient appointment for mental health and also for primary care. Prior to discharge a family meeting will be arranged by social scientist to answer any questions and ensure safety upon discharge. Mental status exam: General Appearance: Patient appears to be mildly overweight, wearing glasses, stated age is alert, pleasant, and cooperative. Patient is in no acute distress and has improved hygiene and grooming Behavior: Patient is calmly seated without any agitated behavior. Speech: Patient's speech is fluent and nonpressured. Mood/Affect: Patient reports their mood is "good", affect is congruent and euthymic. Suicidality/Homicidality: Patient denies having any suicidal or homicidal ideation intent or plan. Perceptions: Patient denies any auditory or visual hallucinations. Though content/process: There is no evidence of any delusional thought content and thought process is linear and goal-directed. Memory and concentration: AOX3, grossly intact for the purposes of this session. Can spell "WORLD" backwards correctly. Judgment and insight: improved with guarded prognosis Impression: Bipolar disorder type I, current mixed episode Anxiety disorder unspecified Cannabis use disorder Opioid dependence Nicotine dependence Plan: -Continue with discharge today as patient has improved and stabilized psychiatrically and is not currently an imminent threat to herself and/or others. Patient will remain at chronically elevated risk for harm to self and/or others due to her impulsivity and polysubstance abuse. -Continue medications: Abilify by mouth 10 mg daily for mood stabilization, will give 10 more days of this medication then discontinue. Patient was transitioned onto Abilify Maintenna 400 mg IM given on 07/02, will be due every monthly next dose on 07/29 at [facility]. Lamictal 25 mg twice a day for mood stabilization/depression, Vistaril 25 mg twice a day when necessary for anxiety, trazodone 50 mg daily at bedtime for sleep/mood. Patient continue on her home dose of Suboxone for opiate use disorder. -Patient was counseled on the need for medication compliance and appropriate follow-up at mental health and also primary care for medical issues. Patient verbalized understanding and agreed. -Social work to arrange for and conduct family meeting to ensure safety upon discharge and answer any questions/concerns. Social work also to arrange for patients follow up appointments with [facility] for psychiatric care along with follow up with primary care provider. -Patient counseled on abstaining from recreational drugs and marijuana and alcohol. Was informed/educated on the adverse effects on their physical and mental health. Patient verbally agreed and understood. Patient was offered substance abuse treatment however declined at this time. -Patient was instructed to return to the hospital or seek immediate medical care if their psychiatric or medical symptoms do worsen or reoccur. Allergies Allergy/AdvReac Type Severity Reaction Status Date / Time lorazepam From Ativan AdvReac Hallucinati Verified 06/29/23 16:48 ons Laboratory Results WBC 7.2 k/uL (3.8-10.6) 06/29/23 16:28 RBC 4.73 m/uL (3.80-5.40) 06/29/23 16:28 Hgb 13.3 gm/dL (11.4-16.0) 06/29/23 16:28 Hct 39.1 % (34.0-46.0) 06/29/23 16:28 MCV 82.7 fL (80.0-100.0) 06/29/23 16:28 MCH 28.2 pg (25.0-35.0) 06/29/23 16:28 MCHC 34.1 g/dL (31.0-37.0) 06/29/23 16:28 RDW 12.8 % (11.5-15.5) 06/29/23 16:28 Plt Count 217 k/uL (150-450) 06/29/23 16:28 MPV 7.7 06/29/23 16:28 Neutrophils % 61 % 06/29/23 16:28 Lymphocytes % 30 % 06/29/23 16:28 Monocytes % 5 % 06/29/23 16:28 Eosinophils % 1 % 06/29/23 16:28 Basophils % 0 % 06/29/23 16:28 Neutrophils # 4.4 k/uL (1.3-7.7) 06/29/23 16:28 Lymphocytes # 2.2 k/uL (1.0-4.8) 06/29/23 16:28 Monocytes # 0.3 k/uL (0-1.0) 06/29/23 16:28 Eosinophils # 0.1 k/uL (0-0.7) 06/29/23 16:28 Basophils # 0.0 k/uL (0-0.2) 06/29/23 16:28 Sodium 136 mmol/L (137-145) L 06/29/23 16:28 Potassium 4.3 mmol/L (3.5-5.1) 06/29/23 16:28 Chloride 102 mmol/L (98-107) 06/29/23 16:28 Carbon Dioxide 22 mmol/L (22-30) 06/29/23 16:28 Anion Gap 12 mmol/L 06/29/23 16:28 BUN 15 mg/dL (7-17) 06/29/23 16:28 Creatinine 0.57 mg/dL (0.52-1.04) 06/29/23 16:28 Est GFR (CKD-EPI)AfAm >90 (>60 ml/min/1.73 sqM) 06/29/23 16:28 Est GFR (CKD-EPI)NonAf >90 (>60 ml/min/1.73 sqM) 06/29/23 16:28 Glucose 96 mg/dL (74-99) 06/29/23 16:[address] Glu mg/dL 123 mg/dL 06/29/23 16:28 Hemoglobin A1c 5.9 % (<=6.0) 06/29/23 16:28 Calcium 9.2 mg/dL (8.4-10.2) 06/29/23 16:28 Total Bilirubin 0.5 mg/dL (0.2-1.3) 06/29/23 16:28 AST 30 U/L (14-36) 06/29/23 16:28 ALT 24 U/L (4-34) 06/29/23 16:28 Alkaline Phosphatase 91 U/L (38-126) 06/29/23 16:28 Total Protein 7.3 g/dL (6.3-8.2) 06/29/23 16:28 Albumin 4.1 g/dL (3.5-5.0) 06/29/23 16:28 Triglycerides 125.00 mg/dL (0.00-149.00) 06/29/23 16:28 Cholesterol 161.00 mg/dL (0.00-200.00) 06/29/23 16:28 LDL Cholesterol, Calc 87.3 mg/dL (0.0-131.0) 06/29/23 16:28 VLDL Cholesterol, Calc 25.00 mg/dL (5.00-40.00) 06/29/23 16:28 HDL Cholesterol 48.70 mg/dL (40.00-60.00) 06/29/23 16:28 Cholesterol/HDL Ratio 3.31 Ratio 06/29/23 16:28 TSH 1.570 mIU/L (0.465-4.680) 06/29/23 16:28 Urine Color Lizet 06/29/23 16:14 Urine Appearance Clear (Clear) 06/29/23 16:14 Urine pH 7.0 (5.0-8.0) 06/29/23 16:14 Ur Specific [place] 1.015 (1.001-1.035) 06/29/23 16:14 Urine Protein Negative (Negative) 06/29/23 16:14 Urine Glucose (UA) Negative (Negative) 06/29/23 16:14 Urine Ketones Negative (Negative) 06/29/23 16:14 Urine Blood Negative (Negative) 06/29/23 16:14 Urine Nitrite Negative (Negative) 06/29/23 16:14 Urine Bilirubin Negative (Negative) 06/29/23 16:14 Urine Urobilinogen <2.0 mg/dL (<2.0) 06/29/23 16:14 Ur Leukocyte Esterase Negative (Negative) 06/29/23 16:14 Urine HCG, Qual Not Detected (Not Detectd) 06/29/23 16:14 Urine Opiates Screen Not Detected (NotDetected) 06/29/23 14:34 Ur Oxycodone Screen Not Detected (NotDetected) 06/29/23 14:34 Urine Methadone Screen Not Detected (NotDetected) 06/29/23 14:34 Ur Propoxyphene Screen Not Detected (NotDetected) 06/29/23 14:34 Ur Barbiturates Screen Not Detected (NotDetected) 06/29/23 14:34 U Tricyclic Antidepress Not Detected (NotDetected) 06/29/23 14:34 Ur Phencyclidine Scrn Not Detected (NotDetected) 06/29/23 14:34 Ur Amphetamines Screen Not Detected (NotDetected) 06/29/23 14:34 U Methamphetamines Scrn Not Detected (NotDetected) 06/29/23 14:34 U Benzodiazepines Scrn Not Detected (NotDetected) 06/29/23 14:34 Urine Cocaine Screen Not Detected (NotDetected) 06/29/23 14:34 U Marijuana (THC) Screen Not Detected (NotDetected) 06/29/23 14:34 SARS-CoV-2 (PCR) Not Detected (Not Detectd) 07/01/23 10:00 Vital Signs Temp 96.8 F L 07/05/23 08:03 Pulse 70 07/05/23 08:03 Resp 16 07/05/23 08:03 BP 135/63 07/05/23 08:03 Pulse Ox 95 07/05/23 08:03 FiO2 Patient Condition at Discharge: Stable Plan - Discharge Summary Discharge Rx Participant: Yes New Discharge Prescriptions: New ARIPiprazole IM [Abilify Maintena] 400 mg IM QMONTHLY #1 each traZODone HCL [Desyrel] 50 mg PO HS 30 Days #30 tab lamoTRIgine [LaMICtal] 25 mg PO BID 30 Days #60 tab ARIPiprazole [Abilify] 10 mg PO DAILY 10 Days #10 tab Nicotine 21Mg/24Hr Patch [Habitrol] 1 patch TRANSDERM DAILY 14 Days #14 patch hydrOXYzine pamoate [Vistaril] 25 mg PO BID PRN 15 Days #30 cap PRN Reason: Anxiety Continue Albuterol Sulfate [Ventolin HFA] 1 puff QID PRN PRN Reason: Shortness Of Breath Or Wheezing Buprenorphine HCl/Naloxone HCl [Suboxone 8 mg-2 mg Sl Film] 1 film PO BID Discontinued ARIPiprazole [Abilify] 10 mg PO HS Discharge Medication List Buprenorphine HCl/Naloxone HCl [Suboxone 8 mg-2 mg Sl Film] 1 film PO BID 03/22/23 [History] Albuterol Sulfate [Ventolin HFA] 1 puff QID PRN 06/29/23 [History] ARIPiprazole IM [Abilify Maintena] 400 mg IM QMONTHLY #1 each 07/05/23 [Rx] ARIPiprazole [Abilify] 10 mg PO DAILY 10 Days #10 tab 07/05/23 [Rx] Nicotine 21Mg/24Hr Patch [Habitrol] 1 patch TRANSDERM DAILY 14 Days #14 patch 07/05/23 [Rx] hydrOXYzine pamoate [Vistaril] 25 mg PO BID PRN 15 Days #30 cap 07/05/23 [Rx] lamoTRIgine [LaMICtal] 25 mg PO BID 30 Days #60 tab 07/05/23 [Rx] traZODone HCL [Desyrel] 50 mg PO HS 30 Days #30 tab 07/05/23 [Rx] Follow up Appointment(s)/Referral(s): Vipin Wilkes MD [Primary Care Provider] - 1-2 days Patient Instructions/Handouts: How to Stop Smoking (DC), Bipolar Disorder (DC), Depression (DC), Polysubstance Abuse (ED) Activity/Diet/Wound Care/Special Instructions: Avoid the use of street drugs and alcohol. Take all medications as prescribed. When you are in need of refills on your medications, please contact your medical provider and/or outpatient psychiatrist/provider to have this done. Please go to your scheduled outpatient appointment for aftercare treatment. If symptoms return or become worse, call the crisis line at and/or go to the nearest emergency room for evaluation. National Suicide Hotline 988. Discharge Disposition: HOME SELF-CARE
[2023-07-05] MEDS: IBUPROFEN 600 MG TAB PO PRN (12:20)
== END 2023-07-05 13:37 | disposition home or self-care (01) | DRG 753 ==
LOC: EC 14:09 → 3MHU 20:31
PROVIDERS: ADMIT Psychiatry & Neurology Psychiatry; ATTEND Psychiatry & Neurology Psychiatry
DX: F31.63 Bipolar disorder, current episode mixed, severe, without psychotic features (principal); F11.20 Opioid dependence, uncomplicated; F12.90 Cannabis use, unspecified, uncomplicated; F17.200 Nicotine dependence, unspecified, uncomplicated; R45.851 Suicidal ideations; Z79.899 Other long term (current) drug therapy; Z91.148 Patient's other noncompliance with medication regimen for other reason; Z11.52 Encounter for screening for COVID-19
CPT/HCPCS: 36415; 80053; 80061; 80306; 81003; 81025; 82075; 83036; 84443; 85025; 87635; 99285

== ENCOUNTER 2023-09-16 15:54 | Emergency (ER) | payer OTHER ==
[2023-09-16 20:23] LABS: Amphetamine Screen,Urine Not Detected (NotDetected); Benzodiazepines Screen,Urine Not Detected (NotDetected); Cocaine Screen,Urine Not Detected (NotDetected); Opiate Screen,Urine Not Detected (NotDetected); Phencyclidine Screen,Urine Not Detected (NotDetected); Tricyclic Antidepressant,Urine Detected (NotDetected); Urn Cannabinoid Scrn Not Detected (NotDetected)
[2023-09-16 20:24] LABS: Barbiturate Screen,Urine Not Detected (NotDetected); Methadone Screen, Urine Not Detected (NotDetected); Oxycodone Screen, Urine Not Detected (NotDetected)
--- NOTE | 2023-09-16 21:46 | ED ---
General Adult HPI - General Source: patient, RN notes reviewed, old records reviewed Mode of arrival: ambulatory Limitations: no limitations <Wayne Martin - Last Filed: 09/16/23 21:40> <Darwin Rodriguez - Last Filed: 09/17/23 14:50> - General Chief complaint: Psychiatric Symptoms Stated complaint: Petitioned-Mental Health Eval Time Seen by Provider: 09/16/23 19:30 - History of Present Illness Initial comments: Patient is a 37-year-old female who presents for psychiatric evaluation. Patient was petitioned by her mother. Petition states she has been acting erratic with suicidal ideations. Patient denies any of this. Denies any suicidal ideations, homicidal ideations. Denies any plans or attempts. Denies any hallucinations. Presents for further evaluation at this time. Denies chest pain, shortness of breath, abdominal pain, nausea, vomiting. (Wayne Martin) - Related Data Home Medications Medication Instructions Recorded Confirmed Buprenorphine HCl/Naloxone HCl 1 film SL TID 03/22/23 09/16/23 [Suboxone 8 mg-2 mg Sl Film] Albuterol Sulfate [Ventolin HFA] 2 puff INHALATION RT-QID PRN 06/29/23 09/16/23 Meloxicam [Mobic] 7.5 - 15 mg PO DAILY PRN 09/16/23 09/16/23 Previous Rx's Medication Instructions Recorded lamoTRIgine [LaMICtal] 25 mg PO BID 30 Days #60 tab 07/05/23 traZODone HCL [Desyrel] 50 mg PO HS 30 Days #30 tab 07/05/23 Allergies Allergy/AdvReac Type Severity Reaction Status Date / Time lorazepam [From Ativan] AdvReac Hallucinati Verified 09/16/23 22:27 ons Review of Systems ROS Other: All systems not noted in ROS Statement are negative. <Wayne Martin - Last Filed: 09/16/23 21:40> ROS Other: All systems not noted in ROS Statement are negative. <Darwin Rodriguez - Last Filed: 09/17/23 14:50> ROS Statement: Those systems with pertinent positive or pertinent negative responses have been documented in the HPI. Review of Systems: CONST: Denies fever EYES: Denies blurry vision ENT: Denies nasal congestion C/V: Denies Chest pain RESP: Denies shortness of breath GI: Denies abdominal pain : Denies dysuria SKIN: Denies rash. MSK: Denies joint pain. NEURO: Denies headache (Wayne Martin) Past Medical History Past Medical History: Asthma, Seizure Disorder Additional Past Medical History / Comment(s): Grand mal seizures, last seizure 2020. 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 She has not had HSV outbreaks. History of Any Multi-Drug Resistant Organisms: None Reported Past Surgical History: Section Additional Past Surgical History / Comment(s): section 2. Past Anesthesia/Blood Transfusion Reactions: No Reported Reaction Past Psychological History: Anxiety, Bipolar, Depression Smoking Status: Current every day smoker Past Alcohol Use History: Daily, Heavy Past Drug Use History: Cocaine, Marijuana, Prescription Drug Abuse - Past Family History Father Family Medical History: No Reported History Mother Family Medical History: Cancer, COPD Additional Family Medical History / Comment(s): Hysterectomy for some type of cancer. Exact type is unknown. <Wayne Martin - Last Filed: 09/16/23 21:40> General Exam Limitations: no limitations <Wayne Martin - Last Filed: 09/16/23 21:40> - General Exam Comments Initial Comments: General: Appears in no acute distress. HEAD: Normal with no signs of head trauma. EYES: PERRLA, EOMI, conjunctiva normal, no discharge. ENT: Hearing grossly intact, normal oropharynx. RESPIRATORY: Clear breath sounds bilaterally. No wheezes, rales, or rhonchi. C/V: Regular rate and rhythm. S1 and S2 auscultated, no edema, peripheral pulses 2+ and intact throughout ABD: Abd is soft, nontender, nondistended EXT: Normal range of motion, no obvious deformity SKIN: No rashes or lesions observed on exposed skin. NEURO: Alert and oriented x 4. (Wayne Martin) Course Vital Signs 09/16/23 09/17/23 16:08 11:35 Temperature 98.3 F 98.6 F Pulse Rate 124 H 77 Respiratory 20 17 Rate Blood Pressure 138/99 122/77 O2 Sat by Pulse 96 96 Oximetry Medical Decision Making <Wayne Martin - Last Filed: 09/16/23 21:40> <Darwin Rodriguez - Last Filed: 09/17/23 14:50> - Medical Decision Making Was pt. sent in by a medical professional or institution (, [facility], [facility], urgent care, hospital, or [facility]...) When possible be specific @ -No Did you speak to anyone other than the patient for history (EMS, parent, family, police, friend...)? What history was obtained from this source @ -No Did you review nursing and triage notes (agree or disagree)? Why? @ -I reviewed and agree with nursing and triage notes Were old charts reviewed (outside hosp., previous admission, EMS record, old EKG, old radiological studies, urgent care reports/EKG's, [facility] records)? Report findings @ -Old charts reviewed. Petition reviewed Differential Diagnosis (chest pain, altered mental status, abdominal pain women, abdominal pain men, vaginal bleeding, weakness, fever, dyspnea, syncope, headache, dizziness, GI bleed, back pain, seizure, CVA, palpatations, mental health, musculoskeletal)? @ -Differential Mental Health Depression, anxiety, bipolar, psychosis, schizophrenia, borderline personality, situational depression, adjustment disorder, behavioral disorder, brain tumor, malingering, substance abuse, encephalopathy, medication reaction, dementia, hypothyroidism, degenerative neurologic disorder, lupus.... This is not meant to be all-inclusive list EKG interpreted by me (3pts min.). @ -None done X-rays interpreted by me (1pt min.). @ -None done CT interpreted by me (1pt min.). @ -None done U/S interpreted by me (1pt. min.). @ -None done What testing was considered but not performed or refused? (CT, X-rays, U/S, labs)? Why? @ -None What meds were considered but not given or refused? Why? @ -None Did you discuss the management of the patient with other professionals (professionals i.e. , [facility], [employer], lab, RT, psych nurse, social sciences department chair, special education math teacher, teacher, combat systems officer, case resource manager)? Give summary @ -EPS notified of the consult Was smoking cessation discussed for >3mins.? @ -No Was critical care preformed (if so, how long)? @ -No Were there social determinants of health that impacted care today? How? (Homelessness, low income, unemployed, alcoholism, drug addiction, transportation, low edu. Level, literacy, decrease access to med. care, retirement, rehab)? @ -No Was there de-escalation of care discussed even if they declined (Discuss DNR or withdrawal of care, Hospice)? DNR status @ -No What co-morbidities impacted this encounter? (DM, HTN, Smoking, COPD, CAD, Cancer, CVA, ARF, Chemo, Hep., AIDS, mental health diagnosis, sleep apnea, morbid obesity)? @ -Bipolar Was patient admitted / discharged? Hospital course, mention meds given and route, prescriptions, significant lab abnormalities, going to OR and other pertinent info. @ -Based on the patient's presentation and physical exam, presents emergency department complaining of being petition for mental health evaluation. Has no acute complaints at this time. Petition states she has been erratic with suicidal ideations. Vital signs within acceptable limits. I evaluated her when she was placed in room. BAT is 0. UDS is pending. Suicide precaution and sitter ordered. At this time, patient is medically cleared for evaluation by psychiatry. Disposition pending psychiatric evaluation. EPS notified of the consult. Undiagnosed new problem with uncertain prognosis? @ -No Drug Therapy requiring intensive monitoring for toxicity (Heparin, Nitro, Insulin, Cardizem)? @ -No Were any procedures done? @ -No (Wayne Martin) Patient care signed out to me by previous shift physician. Plan at signout was to follow-up with pending EPS evaluation. At 2:49 PM I was notified by EPS nurse that patient is cleared for discharge with outpatient substance abuse resources. Patient stable at time of discharge. (Darwin Rodriguez) - Lab Data Lab Results 09/16/23 Range/Units 19:58 Urine Opiates Screen Not Detected (NotDetected) Ur Oxycodone Screen Not Detected (NotDetected) Urine Methadone Screen Not Detected (NotDetected) Ur Barbiturates Screen Not Detected (NotDetected) U Tricyclic Antidepress Detected H (NotDetected) Ur Phencyclidine Scrn Not Detected (NotDetected) Ur Amphetamines Screen Not Detected (NotDetected) U Methamphetamines Scrn Not Detected (NotDetected) U Benzodiazepines Scrn Not Detected (NotDetected) Urine Cocaine Screen Not Detected (NotDetected) U Marijuana (THC) Screen Not Detected (NotDetected) Disposition <Wayne Martin - Last Filed: 09/16/23 21:40> Is patient prescribed a controlled substance at d/c from ED?: No Time of Disposition: 14:50 <Darwin Rodriguez - Last Filed: 09/17/23 14:50> Clinical Impression: Psychiatric complaint Disposition: HOME SELF-CARE Condition: Good Instructions (If sedation given, give patient instructions): Medical Clearance for Psychiatric Care (ED) Referrals: Vipin Wilkes MD [Primary Care Provider] - 1-2 days
[2023-09-16] MEDS: ALPRAZolam 0.25 MG TAB PO STA (22:11)
[2023-09-17] MEDS ORDERED: ALBUTEROL NEBULIZED 2.5 MG/3 ML INHALATION PRN (05:24)
[2023-09-17] MEDS: NON FORMULARY DRUG (Buprenorphine Hcl/Naloxone Hcl [Suboxone 8 Mg-2 Mg Sl Film] 1 EACH Fil SUBLINGUAL SCH (09:31)
[2023-09-17] MEDS: lamoTRIgine 25 MG TAB PO SCH (09:33)
[2023-09-17 15:23] VITALS: BP 130/81; PULSE 80; RESP 18; TEMP 98.4
[2023-09-17] MEDS ORDERED: traZODone HCL 50 MG TAB PO SCH (21:00)
== END 2023-09-17 15:05 | disposition home or self-care (01) ==
LOC: EC 15:54
DX: F99 Mental disorder, not otherwise specified (principal); J45.909 Unspecified asthma, uncomplicated; F17.200 Nicotine dependence, unspecified, uncomplicated; F14.90 Cocaine use, unspecified, uncomplicated; F12.90 Cannabis use, unspecified, uncomplicated; Z88.8 Allergy status to other drugs, medicaments and biological substances; Z86.59 Personal history of other mental and behavioral disorders
CPT/HCPCS: 80306; 82075; 99285

== ENCOUNTER 2023-12-24 17:05 | Emergency (ER) | payer OTHER ==
[2023-12-24 17:24] VITALS: RESP 18
--- NOTE | 2023-12-24 17:35 | ED ---
General Adult HPI - General Chief complaint: Psychiatric Symptoms Stated complaint: mental health Time Seen by Provider: 12/24/23 17:18 Source: patient, RN notes reviewed Mode of arrival: ambulatory Limitations: no limitations - History of Present Illness Initial comments: Patient is a 38-year-old female present to the emergency department with concern for marce. Patient has been anxious for the past several days. Patient was in rehab a month ago. Patient went to rehab for cocaine and Xanax use. Patient was taken off her Lamictal and Abilify secondary to swelling. Patient has racing thoughts. Patient is not sleeping. Patient finds it hard to concentrate. - Related Data Home Medications Medication Instructions Recorded Confirmed Buprenorphine HCl/Naloxone HCl 1 film SL TID 03/22/23 09/16/23 [Suboxone 8 mg-2 mg Sl Film] Albuterol Sulfate [Ventolin HFA] 2 puff INHALATION RT-QID PRN 06/29/23 09/16/23 Meloxicam [Mobic] 7.5 - 15 mg PO DAILY PRN 09/16/23 09/16/23 Previous Rx's Medication Instructions Recorded lamoTRIgine [LaMICtal] 25 mg PO BID 30 Days #60 tab 07/05/23 traZODone HCL [Desyrel] 50 mg PO HS 30 Days #30 tab 07/05/23 Allergies Allergy/AdvReac Type Severity Reaction Status Date / Time lorazepam [From Ativan] AdvReac Hallucinati Verified 12/24/23 17:14 ons Review of Systems ROS Statement: Those systems with pertinent positive or pertinent negative responses have been documented in the HPI. ROS Other: All systems not noted in ROS Statement are negative. Constitutional: Denies: fever Eyes: Denies: eye pain ENT: Denies: ear pain Respiratory: Denies: cough Cardiovascular: Denies: chest pain Endocrine: Denies: fatigue Gastrointestinal: Denies: abdominal pain Psychiatric: Reports: as per HPI, anxiety. Denies: auditory hallucinations, visual hallucinations, suicidal thoughts Past Medical History Past Medical History: Asthma, Seizure Disorder Additional Past Medical History / Comment(s): Grand mal seizures, last seizure 2019. 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 She has not had HSV outbreaks. History of Any Multi-Drug Resistant Organisms: None Reported Past Surgical History: Section Additional Past Surgical History / Comment(s): section 2. Past Anesthesia/Blood Transfusion Reactions: No Reported Reaction Past Psychological History: Anxiety, Bipolar, Depression Smoking Status: Current every day smoker Past Alcohol Use History: Daily, Heavy Past Drug Use History: Cocaine, Marijuana, Prescription Drug Abuse - Past Family History Father Family Medical History: No Reported History Mother Family Medical History: Cancer, COPD Additional Family Medical History / Comment(s): Hysterectomy for some type of cancer. Exact type is unknown. General Exam Limitations: no limitations General appearance: alert Head exam: Present: normocephalic Eye exam: Present: normal appearance Neck exam: Present: normal inspection Respiratory exam: Present: normal lung sounds bilaterally Cardiovascular Exam: Present: regular rate, normal rhythm GI/Abdominal exam: Present: soft. Absent: tenderness Extremities exam: Present: normal inspection Neurological exam: Present: alert, normal gait Psychiatric exam: Present: anxious, manic Expanded Focused psych exam: Present: restlessness Skin exam: Present: normal color Course Vital Signs 12/24/23 17:10 Temperature 98.8 F Pulse Rate 107 H Respiratory 18 Rate Blood Pressure 144/81 O2 Sat by Pulse 94 L Oximetry Medical Decision Making - Medical Decision Making Was pt. sent in by a medical professional or institution (, PA, [employer]CH CHIEF, urgent care, hospital, or alf...) When possible be specific @ -No Did you speak to anyone other than the patient for history (EMS, parent, family, police, friend...)? What history was obtained from this source @ -Boyfriend is present helps provide history including medications and recent admission for detox Did you review nursing and triage notes (agree or disagree)? Why? @ -I reviewed and agree with nursing and triage notes Were old charts reviewed (outside hosp., previous admission, EMS record, old EKG, old radiological studies, urgent care reports/EKG's, alf records)? Report findings @ -No old charts were reviewed Differential Diagnosis (chest pain, altered mental status, abdominal pain women, abdominal pain men, vaginal bleeding, weakness, fever, dyspnea, syncope, headache, dizziness, GI bleed, back pain, seizure, CVA, palpatations, mental health, musculoskeletal)? @ -Differential Mental Health Depression, anxiety, bipolar, psychosis, schizophrenia, borderline personality, situational depression, adjustment disorder, behavioral disorder, brain tumor, malingering, substance abuse, encephalopathy, medication reaction, dementia, h ypothyroidism, degenerative neurologic disorder, lupus.... This is not meant to be all-inclusive list EKG interpreted by me (3pts min.). @ -As above X-rays interpreted by me (1pt min.). @ -None done CT interpreted by me (1pt min.). @ -None done U/S interpreted by me (1pt. min.). @ -None done What testing was considered but not performed or refused? (CT, X-rays, U/S, labs)? Why? @ -None What meds were considered but not given or refused? Why? @ -None Did you discuss the management of the patient with other professionals (professionals i.e. , PA, [employer] BRANCH CHIEF, lab, RT, psych nurse, social studies teacher, night nurse, teacher, senior major gifts officer, case planner)? Give summary @ -Psychiatric nurse Was smoking cessation discussed for >3mins.? @ -No Was critical care preformed (if so, how long)? @ -No Were there social determinants of health that impacted care today? How? (Homelessness, low income, unemployed, alcoholism, drug addiction, transportation, low edu. Level, literacy, decrease access to med. care, half-way, rehab)? @ -No Was there de-escalation of care discussed even if they declined (Discuss DNR or withdrawal of care, Hospice)? DNR status @ -No What co-morbidities impacted this encounter? (DM, HTN, Smoking, COPD, CAD, Cancer, CVA, ARF, Chemo, Hep., AIDS, mental health diagnosis, sleep apnea, morbid obesity)? @ -History of bipolar with schizophrenic tendency Was patient admitted / discharged? Hospital course, mention meds given and route, prescriptions, significant lab abnormalities, going to OR and other pertinent info. @ -Patient for psychiatric Undiagnosed new problem with uncertain prognosis? @ -No Drug Therapy requiring intensive monitoring for toxicity (Heparin, Nitro, Insulin, Cardizem)? @ -No Were any procedures done? @ -No Diagnosis/symptom? @ -Acute marce Acute, or Chronic, or Acute on Chronic? @ -Acute Uncomplicated (without systemic symptoms) or Complicated (systemic symptoms)? @ -Default Side effects of treatment? @ -No Exacerbation, Progression, or Severe Exacerbation? @ -No Poses a threat to life or bodily function? How? (Chest pain, [place], [place], pneumonia, PE, COPD, DKA, ARF, appy, cholecystitis, CVA, Diverticulitis, Homicidal, Suicidal, threat to staff... and all critical care pts) @ -No - Lab Data Lab Results 12/24/23 Range/Units 19:38 SARS-CoV-2 (PCR) Not Detected (Not Detectd) Disposition Clinical Impression: Marce Disposition: TRANSFER TO PSYCH HOSP/UNIT Is patient prescribed a controlled substance at d/c from ED?: No Referrals: Vipin Wilkes MD [Primary Care Provider] - 1-2 days Time of Disposition: 17:35
[2023-12-24 22:34] LABS: Amphetamine Screen,Urine Not Detected (NotDetected); Barbiturate Screen,Urine Not Detected (NotDetected); Benzodiazepines Screen,Urine Detected (NotDetected); Cocaine Screen,Urine Not Detected (NotDetected); Methadone Screen, Urine Not Detected (NotDetected); Opiate Screen,Urine Not Detected (NotDetected); Oxycodone Screen, Urine Not Detected (NotDetected); Phencyclidine Screen,Urine Not Detected (NotDetected); Tricyclic Antidepressant,Urine Detected (NotDetected); Urn Cannabinoid Scrn Detected (NotDetected)
[2023-12-24] MEDS: ZIPRASIDONE 20 MG VIAL IM STA (22:48)
[2023-12-25] MEDS: ZIPRASIDONE 20 MG VIAL IM STA (02:36)
[2023-12-25 04:32] LABS: ALT 28 U/L (4-34); AST 23 U/L (14-36); African American GFR (CKD) >90 (>60 ml/min/1.73 sqM); Albumin 4.2 g/dL (3.5-5.0); Alkaline Phosphatase 81 U/L (38-126); Anion Gap 6 mmol/L; Blood Urea Nitrogen 9 mg/dL (7-17); Calcium 9.2 mg/dL (8.4-10.2); Carbon Dioxide 25 mmol/L (22-30); Chloride 107 mmol/L (98-107); Glucose 129 mg/dL (74-99); Non-African American GFR(CKD) >90 (>60 ml/min/1.73 sqM); Potassium 4.2 mmol/L (3.5-5.1); Sodium 138 mmol/L (137-145); Total Bilirubin 0.7 mg/dL (0.2-1.3); Total Protein 6.9 g/dL (6.3-8.2)
[2023-12-25 04:37] LABS: Basophils % (A) 1 %; Eosinophils % (A) 1 %; HCT 39.1 % (34.0-46.0); HGB 12.8 gm/dL (11.4-16.0); Lymphocytes # (A) 1.4 k/uL (1.0-4.8); Lymphocytes % (A) 26 %; MCH 27.7 pg (25.0-35.0); MCHC 32.8 g/dL (31.0-37.0); MCV 84.3 fL (80.0-100.0); Mean Platelet Volume 7.6; Monocytes # (A) 0.3 k/uL (0-1.0); Monocytes % (A) 6 %; Neutrophils # (A) 3.6 k/uL (1.3-7.7); Neutrophils % (A) 66 %; Platelet Count 189 k/uL (150-450); RBC 4.63 m/uL (3.80-5.40); WBC 5.5 k/uL (3.8-10.6)
[2023-12-25 11:45] VITALS: BP 167/95; PULSE 87; TEMP 97.7
== END 2023-12-25 18:30 ==
LOC: EC 17:05
DX: F30.9 Manic episode, unspecified (principal); F17.200 Nicotine dependence, unspecified, uncomplicated; F12.90 Cannabis use, unspecified, uncomplicated; F14.90 Cocaine use, unspecified, uncomplicated; Z88.8 Allergy status to other drugs, medicaments and biological substances; Z11.52 Encounter for screening for COVID-19
CPT/HCPCS: 82075; 36415; 80053; 85025; 81025; 80306; 87635; 99285; 96372 ×2; J3486 ×2

== ENCOUNTER 2024-01-15 08:33 | Inpatient (IN) | payer MEDICAID, OTHER ==
--- NOTE | 2024-01-15 08:47 | ED ---
General Adult HPI - General Stated complaint: Mental health Time Seen by Provider: 01/15/24 08:34 Source: patient, EMS, RN notes reviewed, old records reviewed Mode of arrival: EMS Limitations: no limitations - History of Present Illness Initial comments: 38-year-old female presents emergency department via EMS for psychiatric evaluation. Patient is very anxious, manic at this time. She has had recent evaluation for similar reasons. She has been to rehab recently has had some medication changes. Patient denies being suicidal homicidal at this time. Patient states she has had those thoughts in the past. Patient denies physical complaints. - Related Data Home Medications Medication Instructions Recorded Confirmed RX: Buprenorphine HCl/Naloxone HCl 1 film SL TID 03/22/23 09/16/23 [Suboxone 8 mg-2 mg Sl Film] RX: Albuterol Sulfate [Ventolin 2 puff INHALATION RT-QID PRN 06/29/23 09/16/23 HFA] Meloxicam [Mobic] 7.5 - 15 mg PO DAILY PRN 09/16/23 09/16/23 Previous Rx's Medication Instructions Recorded RX: lamoTRIgine [LaMICtal] 25 mg PO BID 30 Days #60 tab 07/05/23 RX: traZODone HCL [Desyrel] 50 mg PO HS 30 Days #30 tab 07/05/23 Allergies Allergy/AdvReac Type Severity Reaction Status Date / Time lorazepam [From Ativan] AdvReac Hallucinati Verified 01/15/24 15:28 ons Review of Systems ROS Statement: Those systems with pertinent positive or pertinent negative responses have been documented in the HPI. ROS Other: All systems not noted in ROS Statement are negative. Past Medical History Past Medical History: Asthma, Seizure Disorder Additional Past Medical History / Comment(s): Grand mal seizures, last seizure 2019. 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 She has not had HSV outbreaks. History of Any Multi-Drug Resistant Organisms: None Reported Past Surgical History: Section Additional Past Surgical History / Comment(s): section 2. Past Anesthesia/Blood Transfusion Reactions: No Reported Reaction Past Psychological History: Anxiety, Bipolar, Depression Smoking Status: Current every day smoker Past Alcohol Use History: Daily, Heavy Past Drug Use History: Cocaine, Marijuana, Prescription Drug Abuse - Past Family History Father Family Medical History: No Reported History Mother Family Medical History: Cancer, COPD Additional Family Medical History / Comment(s): Hysterectomy for some type of cancer. Exact type is unknown. General Exam Limitations: no limitations General appearance: alert, in no apparent distress Head exam: Present: atraumatic, normocephalic, normal inspection Eye exam: Present: normal appearance, PERRL, EOMI. Absent: scleral icterus, conjunctival injection, periorbital swelling ENT exam: Present: normal exam, mucous membranes moist Neck exam: Present: normal inspection, full ROM. Absent: tenderness, meningismus, lymphadenopathy Respiratory exam: Present: normal lung sounds bilaterally. Absent: respiratory distress, wheezes, rales, rhonchi, stridor Cardiovascular Exam: Present: regular rate, normal rhythm, normal heart sounds. Absent: systolic murmur, diastolic murmur, rubs, gallop, clicks GI/Abdominal exam: Present: soft, normal bowel sounds. Absent: distended, tenderness, guarding, rebound, rigid Neurological exam: Present: alert, oriented X3 Psychiatric exam: Present: anxious, manic Course Vital Signs 01/15/24 01/15/24 08:56 13:12 Temperature 98.2 F Pulse Rate 89 62 Respiratory 18 16 Rate Blood Pressure 145/88 129/77 O2 Sat by Pulse 93 L 97 Oximetry Medical Decision Making - Medical Decision Making Was pt. sent in by a medical professional or institution (LILIANE Walker, GLASS CUT OFF SUPERVISOR, urgent care, hospital, or residential...) When possible be specific @ -No Did you speak to anyone other than the patient for history (EMS, parent, family, police, friend...)? What history was obtained from this source @ -No Did you review nursing and triage notes (agree or disagree)? Why? @ -I reviewed and agree with nursing and triage notes Were old charts reviewed (outside hosp., previous admission, EMS record, old EKG, old radiological studies, urgent care reports/EKG's, residential records)? Report findings @ -No old charts were reviewed Differential Diagnosis (chest pain, altered mental status, abdominal pain women, abdominal pain men, vaginal bleeding, weakness, fever, dyspnea, syncope, headache, dizziness, GI bleed, back pain, seizure, CVA, palpatations, mental health, musculoskeletal)? @ -Differential Mental Health Depression, anxiety, bipolar, psychosis, schizophrenia, borderline personality, situational depression, adjustment disorder, behavioral disorder, brain tumor, malingering, substance abuse, encephalopathy, medication reaction, dementia, hypothyroidism, degenerative neurologic disorder, lupus.... This is not meant to be all-inclusive list EKG interpreted by me (3pts min.). @ -None X-rays interpreted by me (1pt min.). @ -None done CT interpreted by me (1pt min.). @ -None done U/S interpreted by me (1pt. min.). @ -None done What testing was considered but not performed or refused? (CT, X-rays, U/S, labs)? Why? @ -None What meds were considered but not given or refused? Why? @ -None Did you discuss the management of the patient with other professionals (professionals i.e. , PA, GLASS CUT OFF SUPERVISOR, lab, RT, psych nurse, social services coordinator, enterprise architect manager, teacher, information technology officer, bilingual patient support caseworker)? Give summary @ -EPS evaluated patient discussed case with psychiatrist patient is admitted fo r psychiatric treatment. Patient was petition by mother Was smoking cessation discussed for >3mins.? @ -No Was critical care preformed (if so, how long)? @ -No Were there social determinants of health that impacted care today? How? (Homelessness, low income, unemployed, alcoholism, drug addiction, transportation, low edu. Level, literacy, decrease access to med. care, senior living, rehab)? @ -No Was there de-escalation of care discussed even if they declined (Discuss DNR or withdrawal of care, Hospice)? DNR status @ -No What co-morbidities impacted this encounter? (DM, HTN, Smoking, COPD, CAD, Cancer, CVA, ARF, Chemo, Hep., AIDS, mental health diagnosis, sleep apnea, morbid obesity)? @ -None Was patient admitted / discharged? Hospital course, mention meds given and route, prescriptions, significant lab abnormalities, going to OR and other pertinent info. @ -Admitted to [facility]. for psychiatric treatment Undiagnosed new problem with uncertain prognosis? @ -No Drug Therapy requiring intensive monitoring for toxicity (Heparin, Nitro, Insulin, Cardizem)? @ -No Were any procedures done? @ -No Diagnosis/symptom? @ -Bipolar disorder Acute, or Chronic, or Acute on Chronic? @ -Acute Uncomplicated (without systemic symptoms) or Complicated (systemic symptoms)? @ -Complicated Side effects of treatment? @ -No Exacerbation, Progression, or Severe Exacerbation? @ -No Poses a threat to life or bodily function? How? (Chest pain, [place], [place], pneumonia, PE, COPD, DKA, ARF, appy, cholecystitis, CVA, Diverticulitis, Homicidal, Suicidal, threat to staff... and all critical care pts) @ -No - Lab Data Lab Results 01/15/24 Range/Units 10:46 Urine Opiates Screen Not Detected (NotDetected) Ur Oxycodone Screen Not Detected (NotDetected) Urine Methadone Screen Not Detected (NotDetected) Ur Barbiturates Screen Not Detected (NotDetected) U Tricyclic Antidepress Detected H (NotDetected) Ur Phencyclidine Scrn Not Detected (NotDetected) Ur Amphetamines Screen Not Detected (NotDetected) U Methamphetamines Scrn Not Detected (NotDetected) U Benzodiazepines Scrn Detected H (NotDetected) Urine Cocaine Screen Not Detected (NotDetected) U Marijuana (THC) Screen Detected H (NotDetected) Disposition Clinical Impression: Bipolar disorder, Anxiety disorder Disposition: TRANSFER TO PSYCH HOSP/UNIT Condition: Fair Is patient prescribed a controlled substance at d/c from ED?: No Referrals: Vipin Wilkes MD [Primary Care Provider] - 1-2 days Time of Disposition: 14:49
[2024-01-15 11:37] LABS: Amphetamine Screen,Urine Not Detected (NotDetected); Barbiturate Screen,Urine Not Detected (NotDetected); Benzodiazepines Screen,Urine Detected (NotDetected); Cocaine Screen,Urine Not Detected (NotDetected); Methadone Screen, Urine Not Detected (NotDetected); Opiate Screen,Urine Not Detected (NotDetected); Oxycodone Screen, Urine Not Detected (NotDetected); Phencyclidine Screen,Urine Not Detected (NotDetected); Tricyclic Antidepressant,Urine Detected (NotDetected); Urn Cannabinoid Scrn Detected (NotDetected)
[2024-01-15] MEDS: ONDANSETRON ODT 4 MG TAB PO STA (13:09)
[2024-01-15] MEDS ORDERED: MAGNESIUM HYDROXIDE 2,400 MG/30 ML CUP PO PRN (20:05)
[2024-01-15] MEDS ORDERED: hydrOXYzine HCL 50 MG/ML 1 ML VIAL IM PRN (20:05)
[2024-01-15] MEDS ORDERED: QUEtiapine 50 MG TAB PO PRN (20:10)
[2024-01-15 20:41] LABS: Amorphous Sediment,Urine Few /hpf; Appearance,Urine Turbid (Clear); Bacteria,Urine Few /hpf; Bilirubin,Urine Negative (Negative); Blood,Urine Large (Negative); Color,Urine Light Red; Glucose,Urine (UA) Negative (Negative); Ketones,Urine Negative (Negative); Leukocyte Esterase,Urine Moderate (Negative); Mucus,Urine Many /hpf; Nitrite,Urine Negative (Negative); Protein,Urine 1+ (Negative); RBC,Urine 10 /hpf (0-5); Specific Gravity,Urine 1.035 (1.001-1.035); Squamous Epithelial Cell,Urine 43 /hpf (0-4); Urobilinogen,Urine <2.0 mg/dL (<2.0); WBC,Urine 3 /hpf (0-5)
[2024-01-15] MEDS: OLANZapine 5 MG TAB PO SCH (21:09)
[2024-01-15] MEDS: MELATONIN 3 MG TABLET PO SCH (21:09)
[2024-01-15] MEDS: LITHIUM CARBONATE 300 MG CAP PO SCH (21:09)
[2024-01-15] MEDS: BENZTROPINE MESYLATE 0.5 MG TAB PO SCH (21:09)
[2024-01-15] MEDS: busPIRone HCl 5 MG TAB PO SCH (21:09)
[2024-01-16] MEDS: NON FORMULARY DRUG (Buprenorphine Hcl/Naloxone Hcl [Suboxone 8 Mg-2 Mg Sl Film] 1 EACH Fil SUBLINGUAL SCH (00:18)
[2024-01-16] MEDS: NICOTINE 14MG/24HR PATCH TRANSDERM SCH (07:59)
[2024-01-16] MEDS: OLANZapine 2.5 MG TAB PO SCH (08:00)
[2024-01-16] MEDS ORDERED: HALOPERIDOL LACTATE 5 MG/ML 1 ML VIAL IM PRN (08:38)
[2024-01-16] MEDS: hydrOXYzine pamoate 25 MG CAP PO PRN (08:52)
[2024-01-16] MEDS: haloperidoL 5 MG TAB PO PRN (08:52)
[2024-01-16] MEDS: ACETAMINOPHEN TAB 325 MG TAB PO PRN (09:05)
[2024-01-16] MEDS: diphenhydrAMINE 50 MG CAP PO ONE (09:48)
[2024-01-16] MEDS ORDERED: LORazepam 2 MG/ML INJ IM PRN (12:17)
[2024-01-16 12:21] LABS: ALT 28 U/L (4-34); AST 23 U/L (14-36); African American GFR (CKD) >90 (>60 ml/min/1.73 sqM); Alkaline Phosphatase 80 U/L (38-126); Anion Gap 5 mmol/L; Blood Urea Nitrogen 14 mg/dL (7-17); Calcium 9.3 mg/dL (8.4-10.2); Carbon Dioxide 28 mmol/L (22-30); Chloride 107 mmol/L (98-107); Glucose 90 mg/dL (74-99); Non-African American GFR(CKD) >90 (>60 ml/min/1.73 sqM); Potassium 4.4 mmol/L (3.5-5.1); Sodium 140 mmol/L (137-145); Total Bilirubin 0.4 mg/dL (0.2-1.3); Total Protein 6.5 g/dL (6.3-8.2)
[2024-01-16 12:47] LABS: Basophils % (A) 1 %; Eosinophils # (A) 0.1 k/uL (0-0.7); Eosinophils % (A) 2 %; HCT 39.2 % (34.0-46.0); HGB 12.9 gm/dL (11.4-16.0); Lymphocytes # (A) 1.2 k/uL (1.0-4.8); Lymphocytes % (A) 25 %; MCHC 32.9 g/dL (31.0-37.0); MCV 85.2 fL (80.0-100.0); Mean Platelet Volume 7.8; Monocytes # (A) 0.3 k/uL (0-1.0); Monocytes % (A) 7 %; Neutrophils % (A) 63 %; Platelet Count 211 k/uL (150-450); RBC 4.61 m/uL (3.80-5.40); WBC 4.8 k/uL (3.8-10.6)
--- NOTE | 2024-01-16 12:56 | P.HP ---
Psychiatric H&P - . H&P Date: 01/16/24 History & Physical: Allergies Allergy/AdvReac Type Severity Reaction Status Date / Time lorazepam [From Ativan] AdvReac Hallucinati Verified 01/15/24 15:28 ons Vital Signs Temp 98.8 F 01/15/24 20:45 Pulse 68 01/16/24 06:51 Resp 18 01/15/24 20:45 BP 114/71 01/16/24 06:51 Pulse Ox 94 L 01/15/24 20:45 FiO2 Intake & Output 01/15/24 01/16/24 01/16/24 18:59 06:59 18:59 Weight 104.326 kg 127.913 kg Laboratory Last Values Urine Color Light Red 01/15/24 10:46 Urine Appearance Turbid (Clear) H 01/15/24 10:46 Urine pH 6.0 (5.0-8.0) 01/15/24 10:46 Ur Specific [place] 1.035 (1.001-1.035) 01/15/24 10:46 Urine Protein 1+ (Negative) H 01/15/24 10:46 Urine Glucose (UA) Negative (Negative) 01/15/24 10:46 Urine Ketones Negative (Negative) 01/15/24 10:46 Urine Blood Large (Negative) H 01/15/24 10:46 Urine Nitrite Negative (Negative) 01/15/24 10:46 Urine Bilirubin Negative (Negative) 01/15/24 10:46 Urine Urobilinogen <2.0 mg/dL (<2.0) 01/15/24 10:46 Ur Leukocyte Esterase Moderate (Negative) H 01/15/24 10:46 Urine RBC 10 /hpf (0-5) H 01/15/24 10:46 Urine WBC 3 /hpf (0-5) 01/15/24 10:46 Ur Squamous Epith Cells 43 /hpf (0-4) H 01/15/24 10:46 Amorphous Sediment Few /hpf (None) H 01/15/24 10:46 Urine Bacteria Few /hpf (None) H 01/15/24 10:46 Urine Mucus Many /hpf (None) H 01/15/24 10:46 Urine HCG, Qual Not Detected (Not Detectd) 01/15/24 10:46 Urine Opiates Screen Not Detected (NotDetected) 01/15/24 10:46 Ur Oxycodone Screen Not Detected (NotDetected) 01/15/24 10:46 Urine Methadone Screen Not Detected (NotDetected) 01/15/24 10:46 Ur Barbiturates Screen Not Detected (NotDetected) 01/15/24 10:46 U Tricyclic Antidepress Detected (NotDetected) H 01/15/24 10:46 Ur Phencyclidine Scrn Not Detected (NotDetected) 01/15/24 10:46 Ur Amphetamines Screen Not Detected (NotDetected) 01/15/24 10:46 U Methamphetamines Scrn Not Detected (NotDetected) 01/15/24 10:46 U Benzodiazepines Scrn Detected (NotDetected) H 01/15/24 10:46 Urine Cocaine Screen Not Detected (NotDetected) 01/15/24 10:46 U Marijuana (THC) Screen Detected (NotDetected) H 01/15/24 10:46 SARS-CoV-2 (PCR) Not Detected (Not Detectd) 01/15/24 15:47 01/16/24 09:09 IDENTIFYING DATA: Patient is a 37-year-old female, works at [employer] part-time, also on disability, , 2 children, 2 step children, lives in a house with , children there on the weekends.. HPI: Patient presented to the hospital ED on 06/29 with . As per EPS note ".ROVING MACHINE OPERATOR notified scientific technical writer that pt's does not feel as though pt is safe to be discharged home and wants to speak with scientific technical writer regarding psychiatrist's decision. Rock Mason Apprentice identified self and attempted to explain that pt was not pre senting with inpatient criteria, but was interrupted by pt's . pt's handed scientific technical writer his phone and stated, "This is her mom. She wants to talk to you." Rock Mason Apprentice attempted to gather further information from pt's family, but pt's mother would only state that pt was not sleeping much and needed to be admitted. pt's mother yelled that "she's a threat to me!" However, no further information was provided that would explain why she felt as though pt was a threat. pt also states, "I need to be admitted to 3 because my stomach is upset and I need to get it figured out." Dr. Manzanares came to ER to speak with scientific technical writer and pt's family. pt's provided further information to psychiatrist. pt has been leaving home in the middle of the night and leaving the doors unlocked and open despite them having small children at home. pt's states that he is unable to leave her alone. pt has been sleeping for maybe 3 hours at most since discharged from previous psychiatric hospitalization on Tuesday. pt has been making "nonsensical statements" and has been getting worse despite taking her medications as prescribed." Upon todays interview, patient states that she is dizzy and confused. She keeps getting up during the interview, and pacing back and forth. Patient is acting very bizarre. Patient claims that voices are talking to her. Telling her to "sit the f down" . Patient states she sleeps at night. She presents as very disorganized and confused. She can not focus on the interview. She does know her name, and location, however, does not know the date. Patient keeps sitting down in the chair, and then standing up, she tried lifting her shirt, and was redirected. Patient keeps saying that she is dying because she is delusional.Patient denies any suicidal or homicidal ideations intent or plan. At this time patient endorses auditory hallucinations telling her what to do, denies visual hallucinations. Patient admits to having flight of ideas racing thoughts. Patient admits to using marijuana. Patient is a smoker, and states she is a social drinker.patient on suboxone, had an opiate addiction, PAST PSYCHIATRIC HISTORY: [facility]. She is on Z yprexa, Braxton, and Buspar. Patient was admitted to this U in June 2023, and admitted to [facility] from 12/24-01/08.. Patient states when she was 12, she took too many tylenol in an OD, and had to drink 'the charcoal efren" PMH: as per ED note ALLERGIES: as per EMR CHEMICAL DEPENDENCY HISTORY: as per HPI FAMILY PSYCHIATRIC: denies SOCIAL HISTORY: Patient was born and raised in [place]. Completed through grade 11. Patient was incarcerated in 2004 for retail fraud. Patient is , and lives in a house with her . Has her children on the weekends. Works at [employer] parts identifier, also receives disability MENTAL STATUS EXAM: General Appearance: Patient appears to be stated age is alert, Patient is overweight, has long dark hair, glasses, multiple tattoos. not directable, and attempts to cooperate. Poor attention span. Patient appears to have poor hygiene and grooming. Behavior: Patient is pacing the room, short attention span. disorganized and bizarre. Speech: Patient's speech is fluent and nonpressured. concrete. bizarre, tangential Mood/Affect: Patient reports their mood is anxious, affect is congruent and labile. Suicidality/Homicidality: Patient denies having any homicidal ideation intent or plan. Denies any suicidal ideations intent or plan Perceptions: Patient denies any visual hallucinations and endorses auditory hallucinations. Though content/process: There is evidence of any delusional thought content and thought process flight of ideas, bizarre. inappropriate content. Memory and concentration: AOX2, Poor attention span. Cannot spell "WORLD" back wards Judgment and insight: poor STRENGTHS/WEAKNESSES: strength is that patient is resilient. Weakness is that patient has poor judgment and non compliant with meds. INTELLECT: average IMPRESSIONS: psychosis, unspecified history of Bipolar disorder Anxiety disorder unspecified Cannabis use disorder Opiate dependence Nicotine dependence PLAN: -Patient is admitted under [involuntary] status to MHU for stabilization of psychiatric symptoms and safety. Patient has not signed adult voluntary form and medication consent and is placed in patient's chart. -Medications : Cogentin 0.5mg bid for EPS symptoms, buspar 5mg po bid for anxiety, Braxton 300mg po bid for mood stabilization, melatonin 3mg po qhs for sleep, d/c Zyprexa add Prolixin 5mg po bid for psychosis, add trazodone 100mg po qhs for insomnia. Continue with home dose suboxone, 8/2mg bid for opiod use disorder -Ativan [and Haldol] PRN for agitation/aggression -Patient was counselled on substance abuse and desired to cut back on use] -Patient was informed of the risks, benefits and side effects of the medication and patient verbally consented to taking the medications. -Internal Medicine consult to perform medical evaluation and physical. -NRT - nicotine patch -SW on board for discharge planning. Encourage patient to participate in groups to work on coping skills. Will await deferral and hearing. 01/16/24 12:10 01/16/24 12:54
[2024-01-16] MEDS: chlorproMAZINE 25 MG/ML 2 ML AMP IM PRN (13:06)
[2024-01-16] MEDS: BUPRENORPHINE-NALOX 8-2 MG TAB 1 EACH TAB.SUBL SL SCH (13:13)
[2024-01-16 13:18] LABS: Lithium 0.6 mmol/L
[2024-01-16] MEDS: [UNRECOGNIZED DRUG - OTHER] SL SCH (16:48)
[2024-01-16] MEDS: SUBOXONE SL SCH (16:48)
[2024-01-16] MEDS: IBUPROFEN 600 MG TAB PO PRN (17:29)
[2024-01-16] MEDS: LORazepam 1 MG TAB PO PRN (17:29)
[2024-01-16 19:46] LABS: Chol/HDL Ratio 4.11 Ratio; LDL Cholesterol,Calculated 84.5 mg/dL (0.0-131.0)
[2024-01-16] MEDS: traZODone HCL 100 MG TAB PO PRN (21:13)
--- NOTE | 2024-01-17 10:19 | P.PN ---
Progress Note - Text Progress Note Date: 01/17/24 Interval History: Patient was seen wandering the hallways and was directable and agreeable to spe ak with television script writer in the office. patient appears to be less intrusive today. Patient states she is feeling a bit better today, and she states that she is just trying to figure out what is real and what is not real. she received several prn meds yesterday due to psychotic behaviors and aggression. She states that she is still having some delusions. She claims her appetite is good, and she slept pretty good last night. At this time patient denies any suicidal or homicidal ideations, intent or plan. Patient denies any auditory, visual hallucinations and denies any paranoia or delusions. Patient denies any side effects from the medications and has been compliant with meds. MENTAL STATUS EXAM: General Appearance: Patient appears to be stated age is alert, Patient is overweight, has long dark hair, glasses, multiple tattoos. not directable, and attempts to cooperate. Improved attention span. Patient appears to have improved hygiene and grooming. Behavior: Patient is seated without agitation. improving Speech: Patient's speech is fluent and nonpressured. concrete. mildly improving Mood/Affect: Patient reports their mood is improving, affect is congruent Suicidality/Homicidality: Patient denies having any homicidal ideation intent or plan. Denies any suicidal ideations intent or plan Perceptions: Patient denies any visual hallucinations and denies auditory hallucinations. Though content/process: There is no evidence of any delusional thought content and thought process improving. bizzare content, mildly improving. Memory and concentration: AOX2, Poor attention span. Judgment and insight: poor, mildly improving IMPRESSIONS: psychosis, unspecified history of Bipolar disorder Anxiety disorder unspecified Cannabis use disorder Opiate dependence Nicotine dependence PLAN: -Patient is admitted under [involuntary] status to MHU for stabilization of psychiatric symptoms and safety. Patient has not signed adult voluntary form and medication consent and is placed in patient's chart. -Medications : Cogentin 0.5mg bid for EPS symptoms, buspar 5mg po bid for anxiety, [place] 300mg po bid for mood stabilization, melatonin 3mg po qhs for sleep, Prolixin 5mg po bid for psychosis, increase trazodone 150mg po qhs for insomnia. Continue with home dose suboxone, 8/2mg bid for opiod use disorder -Ativan [and Haldol] PRN for agitation/aggression -NRT - nicotine patch -SW on board for discharge planning. Encourage patient to participate in groups to work on coping skills. Deferral 01/17, Full 01/24
[2024-01-17] MEDS: OLANZapine 10 MG TAB PO ONE (11:03)
--- NOTE | 2024-01-17 11:34 | CONS ---
CONSULTATION CHIEF COMPLAINT: Acute psychosis. HISTORY OF PRESENT ILLNESS: This is another admission for this 38-year-old female who has had long-standing history of schizophrenia and psychosis. She also has had substance abuse problems. She presented to the emergency room extremely agitated and psychotic and was admitted. She denied being suicidal. REVIEW OF SYSTEMS: Is not reliably obtained. Past medical history, family history, personal and social histories reveal she is not allergic to any medication. MEDICATIONS: When she was last seen in October, she was on, 1. Hydroxyzine. 2. Abilify. 3. Lamictal. 4. Trazodone. 5. Buprenorphine. She does smoke. Use of other substances is not known. PHYSICAL EXAMINATION: VITAL SIGNS: Normal. HEAD, EARS, EYES, NOSE, MOUTH: Seem to be normal. NECK: Normal. CHEST: Clear. CARDIAC: Normal sinus rhythm. ABDOMEN: Protuberant and soft. EXTREMITIES: Normal. IMPRESSION: 1. Acute psychosis. 2. Schizophrenia. 3. History of depression. 4. History of substance abuse. RECOMMENDATIONS: None at this time. Thank you respectfully, MMODL / IJN: [id number] /
[2024-01-17] MEDS: MAG HYDROX/AL HYDROX/SIMETH 355 ML BOTTLE PO PRN (15:55)
[2024-01-17] MEDS: traZODone HCL 50 MG TAB PO SCH (20:01)
[2024-01-17] MEDS: OLANZapine 10 MG TAB PO PRN (20:32)
--- NOTE | 2024-01-18 10:15 | P.PN ---
Progress Note - Text Progress Note Date: 01/18/24 Interval History: Patient was seen wandering the hallways and was directable and agreeable to sp nickolas with machine sign writer in the office. patient appears to be less intrusive today. Continues to have childlike behaviors. patient continues to state she is feeling a bit better. During the interview, she gets up and walks around the room. She appears to be restless. She states that she is still having some delusions and hallucinations. She claims her appetite is good, and she slept pretty good last night. Continues to be mildly bizarre. At this time patient denies any suicidal or homicidal ideations, intent or plan. Patient denies any auditory hallucinations , endorses some visual hallucinations and denies any paranoia, endorses some delusions. Patient denies any side effects from the medications and has been compliant with meds. MENTAL STATUS EXAM: General Appearance: Patient appears to be stated age is alert, Patient is overweight, has long dark hair, glasses, multiple tattoos. not directable, and attempts to cooperate. Improved attention span. Patient appears to have improved hygiene and grooming. Behavior: Patient is pacing the room without agitation. improving. childlike. Speech: Patient's speech is fluent and nonpressured. mildly improving Mood/Affect: Patient reports their mood is improving, affect is congruent Suicidality/Homicidality: Patient denies having any homicidal ideation intent or plan. Denies any suicidal ideations intent or plan Perceptions: Patient denies any visual hallucinations and denies auditory hallucinations. Though content/process: There is no evidence of any delusional thought content and thought process improving. mildly improving. Memory and concentration: AOX3, Poor attention span. Judgment and insight: poor, mildly improving IMPRESSIONS: psychosis, unspecified history of Bipolar disorder Anxiety disorder unspecified Cannabis use disorder Opiate dependence Nicotine dependence PLAN: -Patient is admitted under involuntary status to MHU for stabilization of psychiatric symptoms and safety. Patient has not signed adult voluntary form and medication consent and is placed in patient's chart. -Medications : Cogentin 0.5mg bid for EPS symptoms, increase buspar 15mg po bid for anxiety, [place] 300mg po bid for mood stabilization, melatonin 3mg po qhs for sleep, increase Prolixin 7.5mg po bid for psychosis, trazodone 150mg po qhs for insomnia. Continue with home dose suboxone, 8/2mg bid for opiod use disorder. consider inderall for akithesia/pacing. -Ativan [and Haldol] PRN for agitation/aggression -NRT - nicotine patch -SW on board for discharge planning. Encourage patient to participate in groups to work on coping skills. Deferral 01/17, Full 01/24
[2024-01-18] MEDS: busPIRone HCl 5 MG TAB PO SCH (10:22)
--- NOTE | 2024-01-19 11:10 | P.PN ---
Progress Note - Text Progress Note Date: 01/19/24 Interval History: Patient was seen wandering the hallways and was directable and agreeable to pawan olmos with documentation writer in the office. Patient states that she had a visit with her last night that went pretty well. Continues to have childlike behaviors. Has been seen pacing the hallways. Patient states that she didn't get much good sleep last night. She said she was up a lot last night due to dreaming. She states her mood is pretty good, but she is endorsing a lot of anxiety During the interview, she has bizarre behavior, she appears to be restless. She claims her appetite is good, and she slept pretty good last night. At this time patient denies any suicidal or homicidal ideations, intent or plan. Patient denies any auditory hallucinations , and denies visual hallucinations and denies any paranoia, denies delusions. Patient denies any side effects from the medications and has been compliant with meds. MENTAL STATUS EXAM: General Appearance: Patient appears to be stated age is alert, Patient is overweight, has long dark hair, glasses, multiple tattoos. not directable, and attempts to cooperate. Improved attention span. Patient appears to have improved hygiene and grooming. Behavior: Patient is pacing the room without agitation. improving. childlike. restless Speech: Patient's speech is fluent and nonpressured. mildly improving Mood/Affect: Patient reports their mood is improving, affect is congruent Suicidality/Homicidality: Patient denies having any homicidal ideation intent or plan. Denies any suicidal ideations intent or plan Perceptions: Patient denies any visual hallucinations and denies auditory hallucinations. Though content/process: There is no evidence of any delusional thought content and thought process improving. mildly improving. Memory and concentration: AOX3, Poor attention span. Judgment and insight: poor, mildly improving IMPRESSIONS: psychosis, unspecified history of Bipolar disorder Anxiety disorder unspecified Cannabis use disorder Opiate dependence Nicotine dependence PLAN: -Patient is admitted under involuntary status to [facility] for stabilization of psychiatric symptoms and safety. Patient has not signed adult voluntary form and medication consent and is placed in patient's chart. -Medications : Cogentin 0.5mg bid for EPS symptoms, increase buspar 30mg po bid for anxiety, [place] 300mg po bid for mood stabilization, increase melatonin 10mg po qhs for sleep, Prolixin 7.5mg po bid for psychosis, increase trazodone 200mg po qhs for insomnia. Continue with home dose suboxone, 8/2mg bid for opiod use disorder. consider inderall for akithesia/pacing. -Ativan [and Haldol] PRN for agitation/aggression -NRT - nicotine patch -SW on board for discharge planning. Encourage patient to participate in groups to work on coping skills. Patient deferred with her county attorney
[2024-01-19] MEDS: busPIRone HCl 10 MG TAB PO SCH (22:31)
[2024-01-19] MEDS: MELATONIN 5 MG TABLET PO SCH (22:31)
[2024-01-19] MEDS: traZODone HCL 100 MG TAB PO SCH (22:32)
--- NOTE | 2024-01-20 11:32 | P.PN ---
Progress Note - Text Progress Note Date: 01/20/24 Interval History: Patient was seen wandering the hallways and was directable and agreeable to pawan olmos with script writer in the office. Patient states that she is doing much better today. Has been seen pacing the hallways, and keeps standing up, walking in place during the interview. Patient states that she did not sleep too good last night. She states her mood is pretty good, but she is endorsing a lot of anxiety. She states she was faking being sick, because she is a "silly goose". She makes bizarre comments, like "I don't want to at the hospital" and "I can see you, I can hear you, but I want my mom, and I want to go home". During the interview, she has bizarre behavior, she appears to be restless. She claims her appetite is good. At this time patient denies any suicidal or homicidal ideations, intent or plan. Patient denies any auditory hallucinations, and denies visual hallucinations and denies any paranoia, denies delusions. Patient denies any side effects from the medications and has been compliant with meds. MENTAL STATUS EXAM: General Appearance: Patient appears to be stated age is alert, Patient is overweight, has long dark hair, glasses, multiple tattoos. not directable, and attempts to cooperate. Improved attention span. Patient appears to have improved hygiene and grooming. Behavior: Patient is pacing the room without agitation. improving. childlike. restless Speech: Patient's speech is fluent and nonpressured. mildly improving Mood/Affect: Patient reports their mood is improving, affect is congruent Suicidality/Homicidality: Patient denies having any homicidal ideation intent or plan. Denies any suicidal ideations intent or plan Perceptions: Patient denies any visual hallucinations and denies auditory hallucinations. Though content/process: There is no evidence of any delusional thought content and thought process improving. mildly improving. Memory and concentration: AOX3, Poor attention span. Judgment and insight: poor, mildly improving IMPRESSIONS: psychosis, unspecified history of Bipolar disorder Anxiety disorder unspecified Cannabis use disorder Opiate dependence Nicotine dependence PLAN: -Patient is admitted under involuntary status to [facility] for stabilization of psychiatric symptoms and safety. Patient has not signed adult voluntary form and medication consent and is placed in patient's chart. -Medications : Cogentin 0.5mg bid for EPS symptoms, increase buspar 30mg po bid for anxiety, d/c [place] , replace with Depakote 500mg qhs for mood stabilization, melatonin 10mg po qhs for sleep, Prolixin 7.5mg po bid for psychosis, trazodone 200mg po qhs for insomnia. Continue with home dose suboxone, 8/2mg bid for opiod use disorder. consider inderall for akithesia/pacing. -order blood work, cbc with diff and comp panel and UA -Ativan [and Haldol] PRN for agitation/aggression -NRT - nicotine patch -SW on board for discharge planning. Encourage patient to participate in groups to work on coping skills. Patient deferred with her civil rights attorney. Likely discharge next week, if patient continues to improve.
[2024-01-20] MEDS: DIVALPROEX ER 500 MG TAB.ER.24H PO SCH (21:44)
[2024-01-21 06:28] LABS: Basophils % (A) 1 %; Eosinophils # (A) 0.2 k/uL (0-0.7); Eosinophils % (A) 4 %; HCT 41.4 % (34.0-46.0); HGB 13.2 gm/dL (11.4-16.0); Lymphocytes # (A) 1.8 k/uL (1.0-4.8); Lymphocytes % (A) 38 %; MCH 27.5 pg (25.0-35.0); MCHC 31.9 g/dL (31.0-37.0); MCV 86.2 fL (80.0-100.0); Mean Platelet Volume 7.7; Monocytes # (A) 0.4 k/uL (0-1.0); Monocytes % (A) 9 %; Neutrophils % (A) 44 %; Platelet Count 183 k/uL (150-450); RDW 13.1 % (11.5-15.5); WBC 4.6 k/uL (3.8-10.6)
[2024-01-21 06:42] LABS: ALT 46 U/L (4-34); AST 27 U/L (14-36); African American GFR (CKD) >90 (>60 ml/min/1.73 sqM); Alkaline Phosphatase 79 U/L (38-126); Anion Gap 6 mmol/L; Blood Urea Nitrogen 12 mg/dL (7-17); Calcium 9.2 mg/dL (8.4-10.2); Carbon Dioxide 25 mmol/L (22-30); Chloride 107 mmol/L (98-107); Glucose 98 mg/dL (74-99); Non-African American GFR(CKD) >90 (>60 ml/min/1.73 sqM); Potassium 4.5 mmol/L (3.5-5.1); Sodium 138 mmol/L (137-145); Total Bilirubin 0.5 mg/dL (0.2-1.3); Total Protein 6.3 g/dL (6.3-8.2)
--- NOTE | 2024-01-21 11:48 | P.PN ---
Progress Note - Text Progress Note Date: 01/21/24 Interval History: Patient was seen wandering the hallways and was directable and agreeable to sp nickolas with service writer in the office. patient was restless during the interview, standing up and pacing often also she was requested to sit. She repeatedly states "I feel better ". However, she says that she is also confused at the same time but has noticed that she is overall feeling better. She is pleasant although making bizarre nonsensical statements. She reports fair sleep and appetite. At this time patient denies any suicidal or homicidal ideations, intent or plan. Patient denies any auditory hallucinations, and denies visual hallucinations and denies any paranoia, denies delusions. Patient denies any side effects from the medications and has been compliant with meds. MENTAL STATUS EXAM: General Appearance: Patient appears to be stated age is alert, Patient is overweight, has long dark hair, glasses, multiple tattoos. not directable, and attempts to cooperate. Patient appears to have improved hygiene and grooming. Behavior: Patient is pacing the room without agitation. improving. childlike. restless Speech: Patient's speech is fluent and nonpressured. mildly improving Mood/Affect: Patient reports their mood is improving, affect is congruent Suicidality/Homicidality: Patient denies having any homicidal ideation intent or plan. Denies any suicidal ideations intent or plan Perceptions: Patient denies any visual hallucinations and denies auditory hallucinations. Though content/process: There is no evidence of any delusional thought content and thought process improving. mildly improving. Memory and concentration: AOX3, Poor attention span. Judgment and insight: poor, mildly improving IMPRESSIONS: psychosis, unspecified history of Bipolar disorder Anxiety disorder unspecified Cannabis use disorder Opiate dependence Nicotine dependence PLAN: -Patient is admitted under involuntary status to [facility] for stabilization of psychiatric symptoms and safety. Patient has not signed adult voluntary form and medication consent and is placed in patient's chart. -Medications : Cogentin 0.5mg bid for EPS symptoms, buspar 30mg po bid for anxiety increase Depakote to 500mg BID for mood stabilization. melatonin 10mg po qhs for sleep, Prolixin 7.5mg po bid for psychosis, trazodone 200mg po qhs for insomnia. Continue with home dose suboxone, 8/2mg bid for opiod use disorder. consider inderall for akithesia/pacing. -order blood work, cbc with diff and comp panel and UA -Thorazine and Zyprexa PRN for agitation/aggression -NRT - nicotine patch -SW on board for discharge planning. Encourage patient to participate in groups to work on coping skills. Patient deferred with her photolithographic stripper. Likely discharge next week, if patient continues to improve.
[2024-01-21] MEDS: DIVALPROEX ER 500 MG TAB.ER.24H PO SCH (21:26)
--- NOTE | 2024-01-22 13:11 | P.PN ---
Progress Note - Text Progress Note Date: 01/22/24 Interval History: Patient was seen wandering the hallways and was directable and agreeable to sp nickolas with typewriter assembly and parts inspector in the office. Patient was quite intrusive yesterday, approaching this provider numerous times saying "I feel better when can I go home? " Patient was less restless during the interview though. She repeatedly states "I feel better ". She says that she is overall feeling better. She is pleasant and not making bizarre nonsensical statements. She reports fair sleep and appetite. At this time patient denies any suicidal or homicidal ideations, intent or plan. Patient denies any auditory hallucinations, and denies visual hallucinations and denies any paranoia, denies delusions. Patient denies any side effects from the medications and has been compliant with meds. MENTAL STATUS EXAM: General Appearance: Patient appears to be stated age is alert, Patient is overweight, has long dark hair, glasses, multiple tattoos. not directable, and attempts to cooperate. Patient appears to have improved hygiene and grooming. Behavior: Patient is pacing the room without agitation. improving. childlike. Less restless Speech: Patient's speech is fluent and nonpressured. mildly improving Mood/Affect: Patient reports their mood is improving, affect is congruent Suicidality/Homicidality: Patient denies having any homicidal ideation intent or plan. Denies any suicidal ideations intent or plan Perceptions: Patient denies any visual hallucinations and denies auditory hallucinations. Though content/process: There is no evidence of any delusional thought content and thought process improving. mildly improving. Memory and concentration: AOX3, Poor attention span. Judgment and insight: poor, mildly improving IMPRESSIONS: psychosis, unspecified history of Bipolar disorder Anxiety disorder unspecified Cannabis use disorder Opiate dependence Nicotine dependence PLAN: -Patient is admitted under involuntary status to [facility] for stabilization of psychiatric symptoms and safety. Patient has not signed adult voluntary form and medication consent and is placed in patient's chart. -Medications : Cogentin 0.5mg bid for EPS symptoms, buspar 30mg po bid for anxiety Continue Depakote 500mg BID for mood stabilization. melatonin 10mg po qhs for sleep, Prolixin 7.5mg po bid for psychosis, trazodone 200mg po qhs for insomnia. Continue with home dose suboxone, 8/2mg bid for opiod use disorder. consider inderall for akithesia/pacing. -Thorazine and Zyprexa PRN for agitation/aggression -NRT - nicotine patch -SW on board for discharge planning. Encourage patient to participate in groups to work on coping skills. Patient deferred with her energy attorney. Likely discharge next week, if patient continues to improve.
--- NOTE | 2024-01-23 11:10 | P.PN ---
Progress Note - Text Progress Note Date: 01/23/24 Interval History: Patient was seen wandering the hallways and was directable and agreeable to sp nickolas with brief writer in the office. Patient states that she feels like the other patients are making fun of her, because she is paranoid. She repeats over and over that she wants to go home. She gets up during the interview and paces. She is endorsing anxiety and paranoia today. She is a bit intrusive today. She reports fair sleep and appetite. At this time patient denies any suicidal or homicidal ideations, intent or plan. Patient denies any auditory hallucinations, and denies visual hallucinations and denies any paranoia, denies delusions. Patient denies any side effects from the medications and has been compliant with meds. MENTAL STATUS EXAM: General Appearance: Patient appears to be stated age is alert, Patient is overweight, has long dark hair, glasses, multiple tattoos. not directable, and attempts to cooperate. Patient appears to have improved hygiene and grooming. Behavior: Patient is pacing the room without agitation. improving. childlike. restless. Speech: Patient's speech is fluent and nonpressured. mildly improving Mood/Affect: Patient reports their mood is anxious, affect is congruent and constricted. Suicidality/Homicidality: Patient denies having any homicidal ideation intent or plan. Denies any suicidal ideations intent or plan Perceptions: Patient denies any visual hallucinations and denies auditory hallucinations. Though content/process: There is no evidence of any delusional thought content and thought process improving. mildly improving. Memory and concentration: AOX3, Poor attention span. Judgment and insight: poor, mildly improving IMPRESSIONS: psychosis, unspecified history of Bipolar disorder Anxiety disorder unspecified Cannabis use disorder Opiate dependence Nicotine dependence PLAN: -Patient is admitted under involuntary status to [facility] for stabilization of psychiatric symptoms and safety. Patient has not signed adult voluntary form and medication consent and is placed in patient's chart. -Medications : Cogentin 0.5mg bid for EPS symptoms, buspar 30mg po bid for anxiety, decrease Depakote 500 mg qhs for mood stabilization, add Lexapro 5mg daily for mood/anxiety, melatonin 10mg po qhs for sleep, change Prolixin 5mg daily + 10mg qhs for psychosis, trazodone 200mg po qhs for insomnia. Continue with home dose suboxone, 8/2mg bid for opiod use disorder. consider inderall for akithesia/pacing. -Thorazine and Zyprexa PRN for agitation/aggression -NRT - nicotine patch -SW on board for discharge planning. Encourage patient to participate in groups to work on coping skills. Patient deferred with her event planning intern. Discharge once patient psychiatrically stable.
[2024-01-23] MEDS: ESCITALOPRAM 5 MG TAB PO SCH (11:50)
[2024-01-23] MEDS: DIVALPROEX ER 500 MG TAB.ER.24H PO SCH (21:33)
--- NOTE | 2024-01-24 11:38 | P.PN ---
Progress Note - Text Progress Note Date: 01/24/24 Interval History: Patient was seen in her room, and was directable and agreeable to speak with mili rios in the office. Patient states she is a bit tired today, but other than that, she feels fine. She is focused on discharge, and repeats that she just wants to go home. She is no longer endorsing anxiety today. She states she has been trying to go to some groups. Patient appears that her thoughts are clearer today. She reports fair sleep and appetite. At this time patient denies any suicidal or homicidal ideations, intent or plan. Patient denies any auditory hallucinations, and denies visual hallucinations and denies any paranoia, denies delusions. Patient denies any side effects from the medications and has been compliant with meds. MENTAL STATUS EXAM: General Appearance: Patient appears to be stated age is alert, Patient is overweight, has long dark hair, glasses, multiple tattoos. not directable, and attempts to cooperate. Patient appears to have improved hygiene and grooming. Behavior: Patient is sitting in the chair without agitation. improving. Speech: Patient's speech is fluent and nonpressured. mildly improving Mood/Affect: Patient reports their mood is anxious, affect is congruent and constricted. Suicidality/Homicidality: Patient denies having any homicidal ideation intent or plan. Denies any suicidal ideations intent or plan Perceptions: Patient denies any visual hallucinations and denies auditory hallucinations. Though content/process: There is no evidence of any delusional thought content and thought process improving. mildly improving. Memory and concentration: AOX3, Poor attention span. Judgment and insight: poor, mildly improving IMPRESSIONS: psychosis, unspecified history of Bipolar disorder Anxiety disorder unspecified Cannabis use disorder Opiate dependence Nicotine dependence PLAN: -Patient is admitted under involuntary status to [facility] for stabilization of psychiatric symptoms and safety. Patient has not signed adult voluntary form and medication consent and is placed in patient's chart. -Medications : Cogentin 0.5mg bid for EPS symptoms, buspar 30mg po bid for anxiety, Depakote 500 mg qhs for mood stabilization, Lexapro 5mg daily for mood/anxiety, melatonin 10mg po qhs for sleep, Prolixin 5mg daily + 10mg qhs for psychosis, decrease trazodone 100mg po qhs for insomnia due to over sedation. Continue with home dose suboxone, 8/2mg bid for opiod use disorder. consider inderall for akithesia/pacing. -Thorazine and Zyprexa PRN for agitation/aggression -NRT - nicotine patch -SW on board for discharge planning. Encourage patient to participate in groups to work on coping skills. Patient deferred with her wedding transportation driver. Discharge possibly Tuesday, once patient psychiatrically stable.
[2024-01-24] MEDS: traZODone HCL 100 MG TAB PO SCH (21:35)
--- NOTE | 2024-01-25 11:37 | P.PN ---
Progress Note - Text Progress Note Date: 01/25/24 Interval History: Patient was seen in her room, and was directable and agreeable to speak with mili rios today. Patient appears to be less tired compared to yesterday however continues to have a childlike behavior. She claims that she is feeling tired states that she slept through the night. Claims that she has not spoken to her in a while. She was less focused on discharge today. Claims that she was feeling anxious earlier on however now is feeling better. Continues to have very limited insight and judgment. She states she has been trying to go to some groups. Patient appears that her thoughts are clearer today. She reports fair sleep and appetite. At this time patient denies any suicidal or homicidal ideations, intent or plan. Patient denies any auditory hallucinations, and denies visual hallucinations and denies any paranoia, denies delusions. Patient denies any side effects from the medications and has been compliant with meds. MENTAL STATUS EXAM: General Appearance: Patient appears to be stated age is alert, Patient is overweight, has long dark hair, glasses, multiple tattoos. not directable, and attempts to cooperate. Patient appears to have improved hygiene and grooming. Behavior: Patient is sitting in the chair without agitation. improving. Speech: Patient's speech is fluent and nonpressured. mildly improving Mood/Affect: Patient reports their mood is anxious, affect is congruent and constricted. Suicidality/Homicidality: Patient denies having any homicidal ideation intent or plan. Denies any suicidal ideations intent or plan Perceptions: Patient denies any visual hallucinations and denies auditory hallucinations. Though content/process: There is no evidence of any delusional thought content and thought process improving. mildly improving. Memory and concentration: AOX3, Poor attention span. Judgment and insight: Childlike, poor, mildly improving IMPRESSIONS: psychosis, unspecified history of Bipolar disorder Anxiety disorder unspecified Cannabis use disorder Opiate dependence Nicotine dependence PLAN: -Patient is admitted under involuntary status to [facility] for stabilization of psychiatric symptoms and safety. Patient has not signed adult voluntary form and medication consent and is placed in patient's chart. -Medications : Cogentin 0.5mg bid for EPS symptoms, buspar 30mg po bid for anxiety, Depakote 500 mg qhs for mood stabilization, increase Lexapro 10 mg daily for mood/anxiety, melatonin 10mg po qhs for sleep, Prolixin 5mg daily + 10mg qhs for psychosis, trazodone 100mg po qhs for insomnia due to over sedation. Continue with home dose suboxone, 8/2mg bid for opiod use disorder. consider inderall for akithesia/pacing. -Thorazine and Zyprexa PRN for agitation/aggression -NRT - nicotine patch -SW on board for discharge planning. Encourage patient to participate in groups to work on coping skills. Patient deferred with her right of way worker. Discharge possibly Tuesday, once patient psychiatrically stable.
[2024-01-25 11:48] VITALS: BMI 46.0
[2024-01-26] MEDS: ESCITALOPRAM 10 MG TAB PO SCH (08:41)
--- NOTE | 2024-01-26 10:04 | P.PN ---
Progress Note - Text Progress Note Date: 01/26/24 Interval History: Patient was seen in her room, and was directable and agreeable to speak with mili rios today. Patient states that she is feeling better today. Claims that she has not spoken to her in a while, only her mom, and she states her mom says she will take care of her when she goes home She was focused on discharge today, but understands that she cannot be discharged today. Denies any depression or anxiety. Continues to have very limited insight and judgment. continues to be somewhat intrusive however more pleasant today. She states she has been trying to go to some groups. Patient appears that her thoughts are clearer today. She reports fair sleep and appetite. At this time patient denies any suicidal or homicidal ideations, intent or plan. Patient denies any auditory hallucinations, and denies visual hallucinations and denies any paranoia, denies delusions. Patient denies any side effects from the medications and has been compliant with meds. MENTAL STATUS EXAM: General Appearance: Patient appears to be stated age is alert, Patient is overweight, has long dark hair, glasses, multiple tattoos. not directable, and attempts to cooperate. Patient appears to have improved hygiene and grooming. Behavior: Patient is sitting in the chair without agitation. improving Speech: Patient's speech is fluent and nonpressured. mildly improving Mood/Affect: Patient reports their mood is anxious, affect is congruent and constricted. Suicidality/Homicidality: Patient denies having any homicidal ideation intent or plan. Denies any suicidal ideations intent or plan Perceptions: Patient denies any visual hallucinations and denies auditory hallucinations. Though content/process: There is no evidence of any delusional thought content and thought process improving. mildly improving. Memory and concentration: AOX3, Poor attention span Judgment and insight: Childlike, poor, mildly improving IMPRESSIONS: psychosis, unspecified history of Bipolar disorder Anxiety disorder unspecified Cannabis use disorder Opiate dependence Nicotine dependence PLAN: -Patient is admitted under involuntary status to [facility] for stabilization of psychiatric symptoms and safety. Patient has not signed adult voluntary form and medication consent and is placed in patient's chart. -Medications : Cogentin 0.5mg bid for EPS symptoms, buspar 30mg po bid for anxiety, Depakote 500 mg qhs for mood stabilization, Lexapro 10 mg daily for mood/anxiety, melatonin 10mg po qhs for sleep, Prolixin 5mg daily + 10mg qhs for psychosis, trazodone 100mg po qhs for insomnia due to over sedation. Continue with home dose suboxone, 8/2mg bid for opiod use disorder. consider inderall for akithesia/pacing. -Thorazine and Zyprexa PRN for agitation/aggression -NRT - nicotine patch -SW on board for discharge planning. Encourage patient to participate in groups to work on coping skills. Patient deferred with her ip attorney. Discharge possibly Tuesday vs Tuesday, once patient is psychiatrically stable.
--- NOTE | 2024-01-27 10:34 | P.PN ---
Progress Note - Text Progress Note Date: 01/27/24 Interval History: Patient was seen in her room, and was directable and agreeable to speak with mili rios today. Patient states that she is feeling better today. She states that she is sleeping better and eating better. She claims to have talked to her on the phone this morning. Denies any depression or anxiety. Continues to have very limited insight and judgment. continues to be intrusive with staff and co patients, however more pleasant today. She states she has been trying to go to some groups. Patient appears that her thoughts are clearer today. Education Administrator spoke with patient about receiving a SWANSON prior to discharge, patient agreeable. At this time patient denies any suicidal or homicidal ideations, intent or plan. Patient denies any auditory hallucinations, and denies visual hallucinations and denies any paranoia, denies delusions. Patient denies any side effects from the medications and has been compliant with meds. MENTAL STATUS EXAM: General Appearance: Patient appears to be stated age is alert, Patient is overweight, has long dark hair, glasses, multiple tattoos. not directable, and attempts to cooperate. Patient appears to have improved hygiene and grooming. Behavior: Patient is sitting in the chair without agitation. improving, less childlike. Speech: Patient's speech is fluent and nonpressured. mildly improving Mood/Affect: Patient reports their mood is anxious, affect is congruent and constricted. improving mildly Suicidality/Homicidality: Patient denies having any homicidal ideation intent or plan. Denies any suicidal ideations intent or plan Perceptions: Patient denies any visual hallucinations and denies auditory hallucinations. Though content/process: There is no evidence of any delusional thought content and thought process improving. mildly improving. Memory and concentration: AOX3, improving attention span Judgment and insight: Childlike, poor, mildly improving IMPRESSIONS: psychosis, unspecified history of Bipolar disorder Anxiety disorder unspecified Cannabis use disorder Opiate dependence Nicotine dependence PLAN: -Patient is admitted under involuntary status to [facility] for stabilization of psychiatric symptoms and safety. Patient has not signed adult voluntary form and medication consent and is placed in patient's chart. -Medications : Cogentin 0.5mg bid for EPS symptoms, buspar 30mg po bid for anxiety, Depakote 500 mg qhs for mood stabilization, Lexapro 10 mg daily for mood/anxiety, melatonin 10mg po qhs for sleep, start Prolixin 37.5mg IM q 2 weeks, first dose 01/26, next dose 02/09 to help ensure compliance. decreasing PO Prolixin with plan to titrate off in the next 2-3 days, 2.5mg daily, last daily dose 01/27 + 10mg qhs for psychosis (through the weekend, Tuesday, decrease to 5mg qhs), orders placed, trazodone 100mg po qhs for insomnia. Continue with home dose suboxone, 8/2mg bid for opioid use disorder. -Thorazine and Zyprexa PRN for agitation/aggression -NRT - nicotine patch - on board for discharge planning. Encourage patient to participate in groups to work on coping skills. Patient deferred with her traffic law attorney. Discharge possibly Tuesday, once patient is transitioned onto a SWANSON. typewriter assembler will speak to in preparation for d/c and coordinate appointments and f/u with [facility].
[2024-01-27] MEDS: fluPHENAZine DECANOATE 25 MG/ML 5ML MDV IM SCH (11:31)
--- NOTE | 2024-01-28 17:23 | P.PN ---
Progress Note - Text Progress Note Date: 01/28/24 Interval history: Patient was seen wandering the halls and agreeable to speak with personal lines underwriter. She is calm but discharge focused, asking for discharge today, misses her family. She reports her mood is "happy", reports good sleep and appetite. At this time patient denies any suicidal or homicidal ideation, intent or plan. Denies any auditory or visual hallucinations. Patient denies any side effects from the medications and has been compliant with meds. She received Prolixin decanoate 37.5 mg q2 weeks on 01/27/24 and is being weaned off oral Prolixin. No agitation. No EPS/tremors/TD. Mental status exam: General Appearance: Patient appears to be stated age, obese, fair hygie ne/grooming Behavior: No agitated behavior. Patient is calm and directable, somewhat childlike Speech: Patient's speech is fluent and non-pressured. Mood/Affect: Mood is improving, affect is congruent and constricted. Suicidality/Homicidality: Patient denies having any suicidal or homicidal ideation intent or plan. Perceptions: Patient denies any auditory or visual hallucinations. Though content/process: There is no evidence of any delusional thought content and thought process is concrete. Memory and concentration: AOX3, grossly intact for the purposes of this session Judgment and insight: improving mildly Assessment/Plan: Continue with current diagnosis. Patient continues to meet criteria for inpatient psychiatric admission for symptom stabilization and safety. Prolixin decanoate 37.5 mg q2 weeks given on 01/27/24. Will continue to taper oral Prolixin as ordered: Prolixin 2.5 mg QAM/10 mg QHS for 01/28/24. Prolixin 10 mg QHS for 01/29/24. Prolixin 5 mg QHS for 01/29 and 01/30. Monitor for medication compliance and for any psychotropic medication side effects. Will continue to monitor ongoing response to treatment. Encouraged participation in milieu.
[2024-01-29 09:19] VITALS: RESP 17
[2024-01-29 20:28] LABS: Appearance,Urine Cloudy (Clear); Bacteria,Urine Occasional /hpf; Bilirubin,Urine Negative (Negative); Blood,Urine Small (Negative); Color,Urine Colorless; Glucose,Urine (UA) Negative (Negative); Ketones,Urine Negative (Negative); Leukocyte Esterase,Urine Large (Negative); Nitrite,Urine Negative (Negative); PH, Urine 5.5 (5.0-8.0); Protein,Urine Negative (Negative); RBC,Urine 5 /hpf (0-5); Specific Gravity,Urine 1.006 (1.001-1.035); Squamous Epithelial Cell,Urine 7 /hpf (0-4); Urobilinogen,Urine <2.0 mg/dL (<2.0); WBC,Urine 20 /hpf (0-5)
--- NOTE | 2024-01-29 22:03 | P.PN ---
Progress Note - Text Progress Note Date: 01/29/24 Interval history: Patient was seen wandering the halls and agreeable to speak with creative writer. She is calm but intrusive and discharge focused. She tends to repeat the same statements to me each time she sees me. She reports she has packed her belonging and is ready for discharge. She reports good mood, sleep and appetite. At this time patient denies any suicidal or homicidal ideation, intent or plan. Denies any auditory or visual hallucinations. Patient denies any side effects from the medications and has been compliant with meds. She received Prolixin decanoate 37.5 mg q2 weeks on 01/27/24 and is being tapered off oral Prolixin. No agitation. No EPS/tremors/TD. Mental status exam: General Appearance: Patient appears to be stated age, obese, fair hygiene/grooming Behavior: No agitated behavior. Patient is calm and directable, somewhat childlike and intrusive. Speech: Patient's speech is fluent and non-pressured. Mood/Affect: Mood is improving, affect is congruent and constricted. Suicidality/Homicidality: Patient denies having any suicidal or homicidal ideation intent or plan. Perceptions: Patient denies any auditory or visual hallucinations. Though content/process: There is no evidence of any delusional thought content and thought process is concrete and perseverative. Memory and concentration: AOX3, grossly intact for the purposes of this session Judgment and insight: poor/fair Assessment/Plan: Continue with current diagnosis. Patient continues to meet criteria for inpatient psychiatric admission for symptom stabilization and safety. Prolixin decanoate 37.5 mg q2 weeks given on 01/27/24. Will continue to taper oral Prolixin as ordered: Prolixin 10 mg QHS for 01/29/24. Prolixin 5 mg QHS for 01/29 and 01/30. Monitor for medication compliance and for any psychotropic medication side effects. Will continue to monitor ongoing response to treatment. Encouraged participation in milieu.
[2024-01-30 09:31] VITALS: BP 108/64; PULSE 66; TEMP 97.2
--- NOTE | 2024-01-30 21:30 | P.DS ---
Providers Date of admission: 01/15/24 19:31 Expected date of discharge: 01/30/24 Attending physician: Iván Gant MD Consults: 01/15/24 20:05 Consult Physician Routine Consulting Provider: Vipin Wilkes Consult Reason/Comments: H&P and medical Do you want consulting provider notified?: Yes Primary care physician: Vipin Wilkes Hospital Course: Admission HPI: Admission note was completed by Dr. Gant: "IDENTIFYING DATA: Patient is a 37-year-old female, works at [employer] part-time, also on disability, , 2 children, 2 step children, lives in a house with , children there on the weekends. HPI: Patient presented to the hospital ED on 06/29 with . As per EPS note ".VEHICLE REFINISHER notified telegraphic typewriter operator that pt's does not feel as though pt is safe to be discharged home and wants to speak with telegraphic typewriter operator regarding psychiatrist's decision. Aerophysics Engineer identified self and attempted to explain that pt was not presenting with inpatient criteria, but was interrupted by pt's . pt's handed telegraphic typewriter operator his phone and stated, "This is her mom. She wants to talk to you." Aerophysics Engineer attempted to gather further information from pt's family, but pt's mother would only state that pt was not sleeping much and needed to be admitted. pt's mother yelled that "she's a threat to me!" However, no further information was provided that would explain why she felt as though pt was a threat. pt also states, "I need to be admitted to [facility] because my stomach is upset and I need to get it figured out." Dr. Manzanares came to ER to speak with telegraphic typewriter operator and pt's family. pt's provided further information to psychiatrist. pt has been leaving home in the middle of the night and leaving the doors unlocked and open despite them having small children at home. pt's states that he is unable to leave her alone. pt has been sleeping for maybe 3 hours at most since discharged from previous psychiatric hospitalization on Tuesday. pt has been making "nonsensical statements" and has been getting worse despite taking her medications as prescribed." Upon todays interview, patient states that she is dizzy and confused. She keeps getting up during the interview, and pacing back and forth. Patient is acting very bizarre. Patient claims that voices are talking to her. Telling her to "sit the f down" . Patient states she sleeps at night. She presents as very disorganized and confused. She can not focus on the interview. She does know her name, and location, however, does not know the date. Patient keeps sitting down in the chair, and then standing up, she tried lifting her shirt, and was redirected. Patient keeps saying that she is dying because she is delusional.Patient denies any suicidal or homicidal ideations intent or plan. At this time patient endorses auditory hallucinations telling her what to do, denies visual hallucinations. Patient admits to having flight of ideas racing thoughts. Patient admits to using marijuana. Patient is a smoker, and states she is a social drinker.patient on suboxone, had an opiate addiction, PAST PSYCHIATRIC HISTORY: Patient currently follows up with [facility]. She is on Zyprexa, Joslin, and Buspar. Patient was admitted to this U in June 2023, and admitted to [facility] from 12/24-01/08.. Patient states when she was 12, she took too many tylenol in an OD, and had to drink 'the charcoal efren" PMH: as per ED note ALLERGIES: as per EMR CHEMICAL DEPENDENCY HISTORY: as per HPI FAMILY PSYCHIATRIC: denies SOCIAL HISTORY: Patient was born and raised in [place]. Completed through grade 11. Patient was incarcerated in 2004 for retail fraud. Patient is , and lives in a house with her . Has her children on the weekends. 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 not directable, and attempts to cooperate. Poor attention span. Patient appears to have poor hygiene and grooming. Behavior: Patient is pacing the room, short attention span. disorganized and bizarre. Speech: Patient's speech is fluent and nonpressured. concrete. bizarre, tangential Mood/Affect: Patient reports their mood is anxious, affect is congruent and labile. Suicidality/Homicidality: Patient denies having any homicidal ideation intent or plan. Denies any suicidal ideations intent or plan Perceptions: Patient denies any visual hallucinations and endorses auditory hallucinations. Though content/process: There is evidence of any delusional thought content and thought process flight of ideas, bizarre. inappropriate content. Memory and concentration: AOX2, Poor attention span. Cannot spell "WORLD" backwards Judgment and insight: poor STRENGTHS/WEAKNESSES: strength is that patient is resilient. Weakness is that patient has poor judgment and non compliant with meds. INTELLECT: average IMPRESSIONS: psychosis, unspecified history of Bipolar disorder Anxiety disorder unspecified Cannabis use disorder Opiate dependence Nicotine dependence PLAN: -Patient is admitted under [involuntary] status to MHU for stabilization of psychiatric symptoms and safety. Patient has not signed adult voluntary form and medication consent and is placed in patient's chart. -Medications : Cogentin 0.5mg bid for EPS symptoms, buspar 5mg po bid for anxiety, Joslin 300mg po bid for mood stabilization, melatonin 3mg po qhs for sleep, d/c Zyprexa add Prolixin 5mg po bid for psychosis, add trazodone 100mg po qhs for insomnia. Continue with home dose suboxone, 8/2mg bid for opiod use disorder -Ativan [and Haldol] PRN for agitation/aggression -Patient was counselled on substance abuse and desired to cut back on use] -Patient was informed of the risks, benefits and side effects of the medication and patient verbally consented to taking the medications. -Internal Medicine consult to perform medical evaluation and physical. -NRT - nicotine patch -SW on board for discharge planning. Encourage patient to participate in groups to work on coping skills. Will await deferral and hearing." Hospital course: Upon admission to the unit patient was directable and agreeable to commence treatment and signed adult voluntary form admitted involuntarily on a petition and certificate and a second certificate was completed and faxed with the courts. Patient ended up signing a deferral with the state attorney and agreeing to treatment. Patient was observed to be childlike and intrusive on the unit, but did attempt to follow unit rules. Patient was compliant with the medications and denied any side effects throughout hospital course. Patient was also seen by medical team for history and physical exam. Throughout the course of the hospitalization patient gradually improved with regards to mood, anxiety, sleep and returned back to their baseline level of functioning. On the day of discharge patient denied any suicidal or homicidal ideation, intent or plan denied any auditory or visual hallucinations. Patient endorsed wanting to live for her health and family. The patient denied any access to guns or weapons. Patient denied any paranoia and did not endorse any delusions. Patient does have a significant history of substance abuse and was counseled on abstaining from all substances including alcohol and marijuana. Patient was offered however declined inpatient substance-abuse rehab. Patient elected to do outpatient substance use treatment program through [facility]. Patient was also counseled on the medications and need for regular compliance and was encouraged to follow-up with their outpatient appointment for mental health and also for primary care. Prior to discharge a family meeting will be arranged by social sciences instructor to answer any questions and ensure safety upon discharge. Mental status exam: General Appearance: Patient appears to be stated age, obese, fair hygiene/grooming Behavior: No agitated behavior. Patient is calm and directable, somewhat childlike and intrusive. Speech: Patient's speech is fluent and non-pressured. Mood/Affect: Mood is improving, affect is congruent and constricted. Suicidality/Homicidality: Patient denies having any suicidal or homicidal ideation intent or plan. Perceptions: Patient denies any auditory or visual hallucinations. Though content/process: There is no evidence of any delusional thought content and thought process is concrete and perseverative. Memory and concentration: AOX3, grossly intact for the purposes of this session Judgment and insight: poor/fair Impression: psychosis, unspecified history of Bipolar disorder Anxiety disorder unspecified Cannabis use disorder Opiate dependence Nicotine dependence Plan: -Continue with discharge today as patient has improved and stabilized psychiatrically and is not currently an imminent threat to herself and/or others. Patient will remain at chronically elevated risk for harm to self and/or others due to his impulsivity and polysubstance abuse. -Continue medications: Cogentin 0.5mg bid for EPS symptoms, Buspar 30mg po bid for anxiety, Depakote 500 mg qhs for mood stabilization, Lexapro 10 mg daily for mood/anxiety, Melatonin 10mg po qhs for sleep, Prolixin decanoate 37.5mg IM q2 weeks (first dose given 01/26, next dose due 02/09), Prolixin 5 mg po QHS. -Patient was counseled on the need for medication compliance and appropriate follow-up at mental health and also primary care for medical issues. Patient verbalized understanding and agreed. -Social work to arrange for and conduct family meeting to ensure safety upon discharge and answer any questions/concerns. Social work also to arrange for patients follow up appointments with [facility] for psychiatric care along with follow up with primary care provider. -Patient counseled on abstaining from recreational drugs and marijuana and alcohol. Was informed/educated on the adverse effects on their physical and mental health. Patient verbally agreed and understood. Patient was offered substance abuse treatment however declined at this time. -Patient was instructed to return to the hospital or seek immediate medical care if their psychiatric or medical symptoms do worsen or reoccur. Laboratory Results WBC 4.6 k/uL (3.8-10.6) 01/21/24 05:52 RBC 4.80 m/uL (3.80-5.40) 01/21/24 05:52 Hgb 13.2 gm/dL (11.4-16.0) 01/21/24 05:52 Hct 41.4 % (34.0-46.0) 01/21/24 05:52 MCV 86.2 fL (80.0-100.0) 01/21/24 05:52 MCH 27.5 pg (25.0-35.0) 01/21/24 05:52 MCHC 31.9 g/dL (31.0-37.0) 01/21/24 05:52 RDW 13.1 % (11.5-15.5) 01/21/24 05:52 Plt Count 183 k/uL (150-450) 01/21/24 05:52 MPV 7.7 01/21/24 05:52 Neutrophils % 44 % 01/21/24 05:52 Lymphocytes % 38 % 01/21/24 05:52 Monocytes % 9 % 01/21/24 05:52 Eosinophils % 4 % 01/21/24 05:52 Basophils % 1 % 01/21/24 05:52 Neutrophils # 2.0 k/uL (1.3-7.7) 01/21/24 05:52 Lymphocytes # 1.8 k/uL (1.0-4.8) 01/21/24 05:52 Monocytes # 0.4 k/uL (0-1.0) 01/21/24 05:52 Eosinophils # 0.2 k/uL (0-0.7) 01/21/24 05:52 Basophils # 0.0 k/uL (0-0.2) 01/21/24 05:52 Sodium 138 mmol/L (137-145) 01/21/24 05:52 Potassium 4.5 mmol/L (3.5-5.1) 01/21/24 05:52 Chloride 107 mmol/L (98-107) 01/21/24 05:52 Carbon Dioxide 25 mmol/L (22-30) 01/21/24 05:52 Anion Gap 6 mmol/L 01/21/24 05:52 BUN 12 mg/dL (7-17) 01/21/24 05:52 Creatinine 0.63 mg/dL (0.52-1.04) 01/21/24 05:52 Est GFR (CKD-EPI)AfAm >90 (>60 ml/min/1.73 sqM) 01/21/24 05:52 Est GFR (CKD-EPI)NonAf >90 (>60 ml/min/1.73 sqM) 01/21/24 05:52 Glucose 98 mg/dL (74-99) 01/21/24 05:[address] Glu mg/dL 123 mg/dL 01/16/24 11:46 Hemoglobin A1c 5.9 % (<=6.0) 01/16/24 11:46 Calcium 9.2 mg/dL (8.4-10.2) 01/21/24 05:52 Total Bilirubin 0.5 mg/dL (0.2-1.3) 01/21/24 05:52 AST 27 U/L (14-36) 01/21/24 05:52 ALT 46 U/L (4-34) H 01/21/24 05:52 Alkaline Phosphatase 79 U/L (38-126) 01/21/24 05:52 Total Protein 6.3 g/dL (6.3-8.2) 01/21/24 05:52 Albumin 4.0 g/dL (3.5-5.0) 01/21/24 05:52 Triglycerides 126.00 mg/dL (0.00-149.00) 01/16/24 11:46 Cholesterol 145.00 mg/dL (0.00-200.00) 01/16/24 11:46 LDL Cholesterol, Calc 84.5 mg/dL (0.0-131.0) 01/16/24 11:46 VLDL Cholesterol, Calc 25.20 mg/dL (5.00-40.00) 01/16/24 11:46 HDL Cholesterol 35.30 mg/dL (40.00-60.00) L 01/16/24 11:46 Cholesterol/HDL Ratio 4.11 Ratio 01/16/24 11:46 TSH 1.860 mIU/L (0.465-4.680) 01/16/24 11:46 Urine Color Colorless 01/29/24 20:04 Urine Appearance Cloudy (Clear) H 01/29/24 20:04 Urine pH 5.5 (5.0-8.0) 01/29/24 20:04 Ur Specific [place] 1.006 (1.001-1.035) 01/29/24 20:04 Urine Protein Negative (Negative) 01/29/24 20:04 Urine Glucose (UA) Negative (Negative) 01/29/24 20:04 Urine Ketones Negative (Negative) 01/29/24 20:04 Urine Blood Small (Negative) H 01/29/24 20:04 Urine Nitrite Negative (Negative) 01/29/24 20:04 Urine Bilirubin Negative (Negative) 01/29/24 20:04 Urine Urobilinogen <2.0 mg/dL (<2.0) 01/29/24 20:04 Ur Leukocyte Esterase Large (Negative) H 01/29/24 20:04 Urine RBC 5 /hpf (0-5) 01/29/24 20:04 Urine WBC 20 /hpf (0-5) H 01/29/24 20:04 Ur Squamous Epith Cells 7 /hpf (0-4) H 01/29/24 20:04 Amorphous Sediment Few /hpf (None) H 01/15/24 10:46 Urine Bacteria Occasional /hpf (None) H 01/29/24 20:04 Urine Mucus Many /hpf (None) H 01/15/24 10:46 Urine HCG, Qual Not Detected (Not Detectd) 01/15/24 10:46 Urine Opiates Screen Not Detected (NotDetected) 01/15/24 10:46 Ur Oxycodone Screen Not Detected (NotDetected) 01/15/24 10:46 Urine Methadone Screen Not Detected (NotDetected) 01/15/24 10:46 Ur Barbiturates Screen Not Detected (NotDetected) 01/15/24 10:46 U Tricyclic Antidepress Detected (NotDetected) H 01/15/24 10:46 Ur Phencyclidine Scrn Not Detected (NotDetected) 01/15/24 10:46 Ur Amphetamines Screen Not Detected (NotDetected) 01/15/24 10:46 U Methamphetamines Scrn Not Detected (NotDetected) 01/15/24 10:46 U Benzodiazepines Scrn Detected (NotDetected) H 01/15/24 10:46 Joslin 0.6 mmol/L 01/16/24 11:46 Urine Cocaine Screen Not Detected (NotDetected) 01/15/24 10:46 U Marijuana (THC) Screen Detected (NotDetected) H 01/15/24 10:46 SARS-CoV-2 (PCR) Not Detected (Not Detectd) 01/15/24 15:47 Vital Signs (72 hours) 01/28/24 01/29/24 01/30/24 05:00 05:00 05:00 Temperature 97.1 F L 97.3 F L 97.2 F L Pulse Rate [ 60 64 66 Pulse Oximetery ] Respiratory 16 17 17 Rate Blood Pressure 111/58 114/81 108/64 [Left Arm] O2 Sat by Pulse 95 95 94 L Oximetry Patient Condition at Discharge: Stable Plan - Discharge Summary Discharge Rx Participant: Yes New Discharge Prescriptions: New busPIRone HCl [Buspar] 30 mg PO BID 30 Days #180 tab Escitalopram [Lexapro] 10 mg PO DAILY 30 Days #30 tab fluPHENAZine decanoate [Prolixin Decanoate] 37.5 mg IM Q14D 14 Days #1 ml Divalproex ER [Depakote ER] 500 mg PO HS 30 Days #30 tab traZODone HCL [Desyrel] 100 mg PO HS 30 Days #30 tab Melatonin 10 mg PO HS 30 Days #30 tab fluPHENAZine [Prolixin] 5 mg PO HS 30 Days #30 tab Continue Buprenorphine HCl/Naloxone HCl [Suboxone 8 mg-2 mg Sl Film] 1 film SL TID Benztropine Mesylate [Cogentin] 0.5 mg PO BID 30 Days #30 tab Joslin Carbonate 300 mg PO BID 30 Days #60 cap Discontinued traZODone HCL [Desyrel] 50 mg PO HS 30 Days #30 tab OXcarbazepine [Trileptal] 300 mg PO BID OLANZapine [ZyPREXA] 15 mg PO HS OLANZapine [ZyPREXA] 2.5 mg PO BID@0900,1500 busPIRone HCl [Buspar] 5 mg PO BID Discharge Medication List Buprenorphine HCl/Naloxone HCl [Suboxone 8 mg-2 mg Sl Film] 1 film SL TID 03/22/23 [History] Benztropine Mesylate [Cogentin] 0.5 mg PO BID 30 Days #30 tab 01/30/24 [Rx] Divalproex ER [Depakote ER] 500 mg PO HS 30 Days #30 tab 01/30/24 [Rx] Escitalopram [Lexapro] 10 mg PO DAILY 30 Days #30 tab 01/30/24 [Rx] Joslin Carbonate 300 mg PO BID 30 Days #60 cap 01/30/24 [Rx] Melatonin 10 mg PO HS 30 Days #30 tab 01/30/24 [Rx] busPIRone HCl [Buspar] 30 mg PO BID 30 Days #180 tab 01/30/24 [Rx] fluPHENAZine [Prolixin] 5 mg PO HS 30 Days #30 tab 01/30/24 [Rx] fluPHENAZine decanoate [Prolixin Decanoate] 37.5 mg IM Q14D 14 Days #1 ml 01/30/24 [Rx] traZODone HCL [Desyrel] 100 mg PO HS 30 Days #30 tab 01/30/24 [Rx] Follow up Appointment(s)/Referral(s): [facility] [Outside] - 02/03/24 9:00 am (02/03/2024 9:00AM - 10:00AM ISABEL DIAS 02/10/2024 8:00AM - 9:00AM Vipin Gomez MD [Primary Care Provider] - 1-2 days Patient Instructions/Handouts: Bipolar Disorder (DC), Psychotic Disorder (DC) Activity/Diet/Wound Care/Special Instructions: Avoid the use of street drugs and alcohol. Take all medications as prescribed. When you are in need of refills on your medications, please contact your medical provider and/or outpatient psychiatrist/provider to have this done. Please go to your scheduled outpatient appointment for aftercare treatment. If symptoms return or become worse, call the crisis line at and/or go to the nearest emergency room for evaluation. National Suicide Hotline 988 Discharge Disposition: HOME SELF-CARE
== END 2024-01-30 13:27 | disposition home or self-care (01) | DRG 751 ==
LOC: EC 08:33 → 3MHU 19:31
PROVIDERS: ADMIT Psychiatry & Neurology Psychiatry; ATTEND Psychiatry & Neurology Psychiatry
DX: F29 Unspecified psychosis not due to a substance or known physiological condition (principal); F11.20 Opioid dependence, uncomplicated; F12.10 Cannabis abuse, uncomplicated; F17.200 Nicotine dependence, unspecified, uncomplicated; F20.9 Schizophrenia, unspecified; F14.10 Cocaine abuse, uncomplicated; F31.9 Bipolar disorder, unspecified; G40.409 Other generalized epilepsy and epileptic syndromes, not intractable, without status epilepticus; Z79.899 Other long term (current) drug therapy; Z71.51 Drug abuse counseling and surveillance of drug abuser; Z71.89 Other specified counseling; Z71.3 Dietary counseling and surveillance; Z28.21 Immunization not carried out because of patient refusal; Z65.3 Problems related to other legal circumstances; Z11.52 Encounter for screening for COVID-19
CPT/HCPCS: 80053; 80061; 80178; 80306; 81001; 81025; 82075; 83036; 84443; 85025; 87635; 99285